=== PATIENT | male | born 1990 | race Caucasian/White ===

== ENCOUNTER 2021-03-24 00:32 | Inpatient (IN) | payer OTHER, SELFPAY ==
--- NOTE | ~2021-03-24 | XR_ITS ---
EXAMINATION: XR ABDOMEN KUB CLINICAL INDICATION: Constipation COMPARISON: None TECHNIQUE: AP view of the abdomen. FINDINGS: The bowel gas pattern is normal with no evidence of ileus or obstruction. No unusual soft tissue calcifications are noted. The bones are unremarkable. XR/XR KUB IMPRESSION: Unremarkable abdomen examination.
[2021-03-24 00:55] VITALS: BP 108/72; PULSE 86; RESP 16; TEMP 36.4; O2SAT 97
--- NOTE | 2021-03-24 01:10 | ED.PSYCH ---
HPI - Psych General Chief Complaint: Psychiatric Symptoms Stated Complaint: SI Time Seen by Provider: 03/24/21 00:57 History of Present Illness HPI Narrative: Patient is a 31-year-old male with a history of polysubstance abuse. Use cocaine and heroin tonight subsequently felt suicidal. Patient walk from [place] to [facility]. Had thoughts about overdosing to kill himself. Patient states he is under lot of stress because his mom from overdose last year. No coughing or congestion or upper respiratory symptoms. Positive generalized malaise. Related Data Allergies Allergy/AdvReac Type Severity Reaction Status Date / Time No Known Allergies Allergy Unverified 03/08/20 18:05 Review of Systems Review of Systems: Positive blisters to his Feet. Positive suicidal ideation All systems reviewed otherwise negative ON LICENSE OF [facility] Social History Social History Advance Directives: No Advance Directives Information Provided: Yes Physical Exam Vital Signs: Vital Signs: Last Vital Signs Temp 97.5 F 03/24/21 00:55 Pulse 86 03/24/21 00:55 Resp 16 03/24/21 00:55 BP 108/72 03/24/21 00:55 Pulse Ox 97 03/24/21 00:55 Appearance: Alert. Oriented X3. No acute distress. Eyes: Pupils equal, round and reactive to light. ENT: Pharynx normal. Neck: Normal inspection. Neck supple. No lymph nodes noted. No crepitus CVS: Normal heart rate and rhythm. Pulses normal. Normal S1 and S2 Respiratory: No respiratory distress. Breath sounds normal. No Wheezing. No rales Abdomen: Soft and nontender. No rigidity. No distention. good BS x4 Skin: Skin warm and dry. Normal skin color. Normal skin turgor. Extremities: No lower extremity edema. Neurovascular intact to all extremities. Positive blisters to the sole of left foot. Does not appear to be infected. Neuro: Oriented X 3. No motor deficit. No sensory deficit. Moving all extermities. No slurred speech MDM - Psych MDM Narrative Medical decision making narrative: Labs ordered. Will get [facility] to evaluate patient for his suicidal ideation. Lab Data Result diagrams: 03/24/21 01:07 Labs: Lab Results 03/24/21 Range/Units 01:07 WBC 6.5 (4.8-10.8) X10*3/uL RBC 4.23 L (4.60-5.80) X10*6/uL Hgb 12.4 L (14.0-18.0) g/dl Hct 35.5 L (42-52) % MCV 83.9 (80-98) fL MCH 29.3 (27.0-33.0) pg MCHC 34.9 (31.0-36.0) g/dl RDW 12.8 (11.0-16.0) % Plt Count 247 (160-400) X10*3/uL MPV 8.9 L (9.4-12.4) fL Immature Gran % (Auto) 0.2 (0.0-0.4) % Neut % (Auto) 63.2 (45-73) % Lymph % (Auto) 24.8 (20-40) % [place] % (Auto) 10.1 (2-11) % Eos % (Auto) 1.4 (0-4) % Baso % (Auto) 0.3 (0-2) % Lymph # (Auto) 1.6 (1.2-4.9) X10*3/uL [place] # (Auto) 0.7 (0.1-1.2) X10*3/uL Eos # (Auto) 0.1 (0.0-0.4) X10*3/uL Baso # (Auto) 0.0 (0.0-0.2) X10*3/uL Abs Immat Gran (auto) 0.01 (0.00-0.03) X10*3/uL Absolute Neuts (auto) 4.1 (2.0-8.3) X10*3/uL Absolute Nucleated RBC 0.000 (0.0-0.012) X10*3/uL Nucleated RBC % (auto) 0.0 (0.0-0.2) /100WBC Discharge Plan Discharge Clinical Impression: Suicidal ideation, Drug-induced psychotic disorder
[2021-03-24 01:12] LABS: MANUAL DIFF FLAG NO
[2021-03-24 01:13] LABS: Basophils Percent Auto 0.3 % (0-2); Eosinophils Absolute Auto 0.1 X10*3/uL (0.0-0.4); Eosinophils Percent Auto 1.4 % (0-4); Hematocrit 35.5 % (42-52); Hemoglobin 12.4 g/dl (14.0-18.0); Imm Gran Abs Auto 0.01 X10*3/uL (0.00-0.03); Imm Gran Pct Auto 0.2 % (0.0-0.4); Lymphocytes Absolute Auto 1.6 X10*3/uL (1.2-4.9); Lymphocytes Percent Auto 24.8 % (20-40); Mean Corpuscular HGB Conc 34.9 g/dl (31.0-36.0); Mean Corpuscular Hemoglobin 29.3 pg (27.0-33.0); Mean Corpuscular Volume 83.9 fL (80-98); Mean Platelet Volume 8.9 fL (9.4-12.4); Monocytes Absolute Auto 0.7 X10*3/uL (0.1-1.2); Monocytes Percent Auto 10.1 % (2-11); Neutrophils Absolute Auto 4.1 X10*3/uL (2.0-8.3); Neutrophils Percent Auto 63.2 % (45-73); Platelet Count 247 X10*3/uL (160-400); Red Blood Count 4.23 X10*6/uL (4.60-5.80); Red Cell Distribution Width 12.8 % (11.0-16.0); White Blood Count 6.5 X10*3/uL (4.8-10.8)
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
[2021-03-24 01:30] LABS: COVID-19 Test Negative (Negative)
[2021-03-24 01:31] LABS: Ethanol < 10 mg/dL
[2021-03-24 01:38] LABS: Amphetamine Screen Urine Not Detected (Not Detect); Barbiturates, Urine Not Detected (Not Detect); Benzodiazepines Screen Urine POSITIVE (Not Detect); Cannabinoid Screen Urine POSITIVE (Not Detect); Cocaine Screen Urine POSITIVE (Not Detect); Opiate Screen Urine POSITIVE (Not Detect); Phencyclidine Screen Urine Not Detected (Not Detect)
[2021-03-24 01:39] LABS: Fentanyl, urine POSITIVE (Not Detect)
--- NOTE | 2021-03-24 01:48 | PC.NURSE ---
[facility] faxed and called. Per Jose E, PT would not be able to be seen until the morning.
[2021-03-24 07:58] VITALS: BP 110/52; PULSE 76; RESP 18; O2SAT 96
--- NOTE | 2021-03-24 09:54 | MHC.CARE ---
CARE Team checked in with patient in [facility]3 regarding possible detox referral. He reported that he just left [facility] ([facility]'s residential recovery program in [place]) after 7 months of treatment and only used one day, does not need detox. Patient stated that he wants mental health treatment, has been struggling with depression due to loses and stress in his life, only feels safe at this hospital. Does not have outpatient providers--had therapy intake with [facility] 2 mos ago.
--- NOTE | 2021-03-24 10:50 | PC.NURSE ---
smart sheet re sent to [facility]
[2021-03-24 10:57] VITALS: BP 111/70; PULSE 67; RESP 16; O2SAT 99
[2021-03-24] MEDS: methADONE HCl 20 MG/2 ML ORAL.CONC 145 MG PO (11:55)
[2021-03-24 17:10] VITALS: BP 102/61; PULSE 65; RESP 17; TEMP 36.4; O2SAT 98
[2021-03-24 23:53] VITALS: BP 117/74; PULSE 59; TEMP 36.8; O2SAT 97
--- NOTE | 2021-03-25 | ECG_ITS ---
Test Reason : MEDCLEARANCE Blood Pressure : / mmHG Vent. Rate : 049 BPM Atrial Rate : 049 BPM P-R Int : 152 ms QRS Dur : 092 ms QT Int : 484 ms P-R-T Axes : 013 -11 001 degrees QTc Int : 437 ms Sinus bradycardia Otherwise normal ECG No previous ECGs available Referred By: Caridad Strong Electronically Signed By:PAO GARSIA
--- NOTE | 2021-03-25 06:24 | PC.NURSE ---
Patient slept the through night, no distress observed/reported, per [facility] patient's disposition section 12 inpatient bed search, methadone rec completed, pending provider's approval, VSS, will continue to monitor.
[2021-03-25 06:42] VITALS: BMI 24.9
--- NOTE | 2021-03-25 07:19 | PC.NURSE ---
patient remains asleep at present respirations are even and unlabored patient appears in no distress
[2021-03-25] MEDS: methADONE HCl 20 MG/2 ML ORAL.CONC 145 MG PO (08:31)
[2021-03-25 08:32] VITALS: BP 122/74; PULSE 62; RESP 16; TEMP 36.9; O2SAT 99
--- NOTE | 2021-03-25 11:13 | PHA.MEDREC ---
Pharmacy Consult ? Medication Reconciliation Pharmacy has completed the medication reconciliation. Patient states that he feels like his anxiety medications are no longer working for him. Patient fills at [facility] in [place], [place] and gets his prescriptions delivered. Last known delivery was 03/11/2021. Kiara Contreras, PharmD [phone]
[2021-03-25] MEDS: busPIRone HCl 10 MG TABLET PO ×2 (14:41→21:19)
[2021-03-25] MEDS: Nicotine Polacrilex Lozenge 4 MG LOZENGE BUCCAL ×2 (17:19→21:25)
[2021-03-25 18:00] VITALS: BP 117/66; BP 133/77; PULSE 61; PULSE 69; TEMP 36.1
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
[2021-03-25] MEDS: Prazosin HCL 1 MG CAPSULE 4 MG PO (21:17)
[2021-03-25] MEDS: QUEtiapine Fumarate 50 MG TABLET 150 MG PO (21:18)
[2021-03-25] MEDS: Mirtazapine 15 MG TABLET PO (21:19)
[2021-03-25] MEDS: QUEtiapine Fumarate 25 MG TABLET PO (21:19)
[2021-03-25] MEDS: OXcarbazepine 300 MG TABLET PO (21:19)
[2021-03-25 23:01] VITALS: PULSE 69
[2021-03-26] MEDS: OXcarbazepine 300 MG TABLET PO ×2 (09:38→21:21)
[2021-03-26] MEDS: busPIRone HCl 10 MG TABLET PO ×3 (09:38→21:21)
[2021-03-26] MEDS: methADONE HCl 20 MG/2 ML ORAL.CONC 145 MG PO (09:38)
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
[2021-03-26 16:00] VITALS: PULSE 53
[2021-03-26 17:41] VITALS: BP 108/63; PULSE 53; RESP 16; TEMP 36.1; O2SAT 96
[2021-03-26 21:20] VITALS: BP 126/74; PULSE 60
[2021-03-26] MEDS: QUEtiapine Fumarate 50 MG TABLET 150 MG PO (21:20)
[2021-03-26] MEDS: Prazosin HCL 1 MG CAPSULE 4 MG PO (21:20)
[2021-03-26] MEDS: LORazepam 0.5 MG TABLET PO (21:21)
[2021-03-26] MEDS: Mirtazapine 15 MG TABLET PO (21:21)
[2021-03-27 06:00] VITALS: BP 108/57; PULSE 54; RESP 16; TEMP 36.5; O2SAT 97
[2021-03-27] MEDS: methADONE HCl 20 MG/2 ML ORAL.CONC 145 MG PO (08:25)
[2021-03-27] MEDS: LORazepam 0.5 MG TABLET PO (08:26)
[2021-03-27] MEDS: busPIRone HCl 10 MG TABLET PO ×3 (08:26→20:49)
[2021-03-27] MEDS: OXcarbazepine 300 MG TABLET PO (08:26)
[2021-03-27] MEDS: hydrOXYzine HCL 50 MG TABLET PO (10:51)
[2021-03-27] MEDS: QUEtiapine Fumarate 25 MG TABLET PO (10:51)
[2021-03-27] MEDS: Nicotine Polacrilex Lozenge 4 MG LOZENGE BUCCAL (10:51)
[2021-03-27 16:00] VITALS: PULSE 55
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
[2021-03-27] MEDS: Mirtazapine 15 MG TABLET PO (20:49)
[2021-03-27 20:50] VITALS: BP 111/63; PULSE 60
[2021-03-27] MEDS: QUEtiapine Fumarate 50 MG TABLET 150 MG PO (20:50)
[2021-03-27] MEDS: OXcarbazepine 300 MG TABLET 600 MG PO (20:50)
[2021-03-27] MEDS: risperiDONE 0.5 MG TABLET PO (20:50)
[2021-03-27] MEDS: LORazepam 1 MG TABLET PO (20:50)
[2021-03-27] MEDS: Prazosin HCL 1 MG CAPSULE 4 MG PO (20:50)
[2021-03-28 06:00] VITALS: BP 95/54; PULSE 62; RESP 16; TEMP 36.4; O2SAT 96
[2021-03-28 07:00] VITALS: BMI 23.9
[2021-03-28] MEDS: OXcarbazepine 300 MG TABLET PO ×2 (08:10→20:35)
[2021-03-28] MEDS: LORazepam 1 MG TABLET PO (08:10)
[2021-03-28] MEDS: risperiDONE 0.5 MG TABLET PO (08:10)
[2021-03-28] MEDS: busPIRone HCl 10 MG TABLET PO ×3 (08:10→20:39)
[2021-03-28] MEDS: methADONE HCl 20 MG/2 ML ORAL.CONC 145 MG PO (08:10)
[2021-03-28] MEDS: QUEtiapine Fumarate 25 MG TABLET PO (11:21)
[2021-03-28] MEDS: hydrOXYzine HCL 50 MG TABLET PO (11:21)
[2021-03-28] MEDS: Nicotine Polacrilex Lozenge 4 MG LOZENGE BUCCAL (11:21)
[2021-03-28 20:30] VITALS: BP 136/76; PULSE 88; RESP 16; TEMP 36.8; O2SAT 99
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
[2021-03-28] MEDS: clonazePAM 1 MG TABLET PO (20:37)
[2021-03-28] MEDS: QUEtiapine Fumarate 50 MG TABLET 150 MG PO (20:37)
[2021-03-28] MEDS: Mirtazapine 15 MG TABLET PO (20:38)
[2021-03-28 20:44] VITALS: BP 136/76; PULSE 88
[2021-03-28] MEDS: Prazosin HCL 1 MG CAPSULE 4 MG PO (20:44)
[2021-03-28] MEDS: OXcarbazepine 300 MG TABLET 600 MG PO (22:32)
[2021-03-29 07:10] VITALS: BP 113/62; PULSE 73; RESP 18; TEMP 36.6; O2SAT 99
[2021-03-29] MEDS: OXcarbazepine 300 MG TABLET PO (08:33)
[2021-03-29] MEDS: methADONE HCl 20 MG/2 ML ORAL.CONC 145 MG PO (08:33)
[2021-03-29] MEDS: clonazePAM 1 MG TABLET PO ×2 (08:33→20:53)
[2021-03-29] MEDS: busPIRone HCl 10 MG TABLET PO ×3 (08:33→20:53)
[2021-03-29] MEDS: Nicotine Polacrilex Lozenge 4 MG LOZENGE BUCCAL (15:00)
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
[2021-03-29 20:45] VITALS: BP 133/89; PULSE 89; TEMP 36.6; O2SAT 98
[2021-03-29] MEDS: OXcarbazepine 300 MG TABLET 600 MG PO (20:52)
[2021-03-29] MEDS: QUEtiapine Fumarate 50 MG TABLET 150 MG PO (20:52)
[2021-03-29 20:53] VITALS: BP 133/89; PULSE 89
[2021-03-29] MEDS: Prazosin HCL 5 MG CAPSULE PO (20:53)
--- NOTE | 2021-03-29 21:45 | PC.NURSE ---
received as transfer from . see note under [facility] mental status. continues on CV. all orders in place.
[2021-03-29] MEDS: Mirtazapine 15 MG TABLET PO (22:58)
[2021-03-29] MEDS: polyethylene glycoL 3350 17 GM POWD.PACK PO (22:58)
[2021-03-29] MEDS: Milk of Magnesia 30 ML ORAL.SUSP PO (22:58)
[2021-03-29] MEDS: QUEtiapine Fumarate 25 MG TABLET PO (23:27)
[2021-03-30 08:11] LABS: Estimated Average Glucose 94 mg/dL; Hemoglobin A1c % 4.9 %
[2021-03-30 08:18] LABS: Alanine Aminotransferase 20 U/L (0-40); Albumin Level 4.1 g/dL (3.5-5.0); Alkaline Phosphatase 94 U/L (39-117); Anion Gap 13 (12-20); Aspartate Amino Transferase 18 U/L (5-37); Bilirubin Total 0.3 mg/dL (0.0-1.0); Blood Urea Nitrogen 14 mg/dL (9-16); Calcium 9.2 mg/dL (8.4-10.2); Carbon Dioxide 27 mmol/L (22-29); Chloride 101 mmol/L (96-108); Cholesterol 150 mg/dL; Creatinine Clr Calc Pharmacy 177.4; Estimated Glomerular Filt Rate > 60; Glucose Random 88 mg/dL (60-115); HDL Cholesterol 28 mg/dL; Potassium 4.4 mmol/L (3.3-5.1); Sodium 137 mmol/L (135-145); Total Protein 7.2 g/dL (6.5-8.0); Triglycerides 510 mg/dL
[2021-03-30 08:39] LABS: Thyroid Stimulating Hormone 1.65 uIU/mL (0.32-4.0)
[2021-03-30 09:00] VITALS: BP 132/74; PULSE 94; RESP 16; TEMP 36.9; O2SAT 99
[2021-03-30] MEDS: OXcarbazepine 300 MG TABLET PO (09:36)
[2021-03-30] MEDS: busPIRone HCl 10 MG TABLET PO ×3 (09:36→20:50)
[2021-03-30] MEDS: clonazePAM 1 MG TABLET 2 MG PO (09:36)
[2021-03-30] MEDS: methADONE HCl 20 MG/2 ML ORAL.CONC 145 MG PO (09:37)
[2021-03-30] MEDS: Nicotine Polacrilex Lozenge 4 MG LOZENGE BUCCAL ×2 (10:49→15:28)
[2021-03-30] MEDS: polyethylene glycoL 3350 17 GM POWD.PACK PO (10:49)
[2021-03-30] MEDS: Milk of Magnesia 30 ML ORAL.SUSP PO ×2 (10:49→21:27)
[2021-03-30] MEDS: QUEtiapine Fumarate 25 MG TABLET PO (15:40)
[2021-03-30] MEDS: hydrOXYzine HCL 50 MG TABLET PO (15:40)
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
[2021-03-30 20:49] VITALS: BP 119/75; PULSE 88
[2021-03-30] MEDS: Prazosin HCL 5 MG CAPSULE PO (20:49)
[2021-03-30] MEDS: clonazePAM 1 MG TABLET PO (20:49)
[2021-03-30] MEDS: QUEtiapine Fumarate 50 MG TABLET 150 MG PO (20:49)
[2021-03-30] MEDS: Mirtazapine 15 MG TABLET PO (20:49)
[2021-03-30] MEDS: Divalproex Sodium 500 MG TABLET.DR PO (20:50)
[2021-03-30 21:30] VITALS: BP 119/75; PULSE 88; RESP 16; TEMP 36.6; O2SAT 100
[2021-03-31 09:10] VITALS: BP 126/68; PULSE 93; RESP 16; TEMP 36.6; O2SAT 100
[2021-03-31] MEDS: clonazePAM 1 MG TABLET 2 MG PO (09:38)
[2021-03-31] MEDS: busPIRone HCl 10 MG TABLET PO ×3 (09:39→20:27)
[2021-03-31] MEDS: Divalproex Sodium 500 MG TABLET.DR PO ×2 (09:39→20:20)
[2021-03-31] MEDS: methADONE HCl 20 MG/2 ML ORAL.CONC 145 MG PO (09:40)
[2021-03-31] MEDS: Magnesium Citrate 300 ML SOLUTION PO (10:20)
[2021-03-31] MEDS: Docusate Sodium 100 MG CAPSULE PO ×2 (10:20→20:20)
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
[2021-03-31] MEDS: hydrOXYzine HCL 50 MG TABLET PO (16:00)
[2021-03-31] MEDS: QUEtiapine Fumarate 25 MG TABLET PO (16:00)
--- NOTE | 2021-03-31 16:42 | PC.NURSE ---
Patient reported on going constipation. Patient stated last normal BM was 10-12 days ago. Patient reports small rabbit like hard pellets this morning. Patient reported feeling bloated and like abdomen was distend. Patient started on Colace today. Patient received 300mLs of magnesium citrate at 10:20 with no effect. Provider notified and KUB was ordered.
[2021-03-31] MEDS: OLANZapine 5 MG TABLET PO (17:47)
[2021-03-31 18:00] VITALS: BP 132/76; PULSE 92; RESP 18; TEMP 36; O2SAT 94
[2021-03-31] MEDS: Lactulose 20 GM/30 ML SOLUTION PO (18:51)
[2021-03-31] MEDS: clonazePAM 1 MG TABLET PO (20:20)
[2021-03-31] MEDS: QUEtiapine Fumarate 50 MG TABLET 150 MG PO (20:20)
[2021-03-31] MEDS: Mirtazapine 15 MG TABLET PO (20:22)
[2021-03-31 20:25] VITALS: BP 123/76; PULSE 92
[2021-03-31] MEDS: Prazosin HCL 5 MG CAPSULE PO (20:25)
[2021-04-01 08:08] LABS: Folate 6.7 ng/mL (> or = 4.0); Vitamin B12 154 pg/mL (200-900)
[2021-04-01] MEDS: busPIRone HCl 10 MG TABLET PO ×3 (09:05→21:03)
[2021-04-01] MEDS: clonazePAM 1 MG TABLET 2 MG PO (09:05)
[2021-04-01] MEDS: Docusate Sodium 100 MG CAPSULE PO ×2 (09:06→21:03)
[2021-04-01] MEDS: Divalproex Sodium 500 MG TABLET.DR PO ×2 (09:06→21:03)
[2021-04-01] MEDS: methADONE HCl 20 MG/2 ML ORAL.CONC 145 MG PO (09:07)
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
[2021-04-01 18:00] VITALS: BP 118/58; PULSE 68; RESP 20; TEMP 36.6; O2SAT 96
[2021-04-01] MEDS: Mirtazapine 15 MG TABLET PO (21:03)
[2021-04-01] MEDS: QUEtiapine Fumarate 50 MG TABLET 150 MG PO (21:03)
[2021-04-01] MEDS: clonazePAM 1 MG TABLET PO (21:03)
[2021-04-01 21:04] VITALS: BP 118/58; PULSE 68
[2021-04-01] MEDS: Prazosin HCL 5 MG CAPSULE PO (21:04)
[2021-04-02 06:00] VITALS: BP 122/84; PULSE 89; RESP 18; TEMP 36.4; O2SAT 96
[2021-04-02] MEDS: busPIRone HCl 10 MG TABLET PO (08:10)
[2021-04-02] MEDS: clonazePAM 1 MG TABLET 2 MG PO (08:10)
[2021-04-02] MEDS: methADONE HCl 20 MG/2 ML ORAL.CONC 145 MG PO (08:10)
[2021-04-02] MEDS: Divalproex Sodium 500 MG TABLET.DR PO (08:10)
[2021-04-02] MEDS: Docusate Sodium 100 MG CAPSULE PO (08:10)
--- NOTE | 2021-05-11 14:44 | P.DS_ITS ---
DS: Providers Provider Date of Service: 04/02/21 Date of admission: 03/25/21 15:14 Date of discharge: 04/02/21 Primary care physician: Unknown Physician Admitting clinician: Jenny Weston Attending physician on admission: Jamie Mullins Attending physician on discharge: Jamie Mullins Discharging clinician: Antonia Paiz DS: Diagnosis Discharge Diagnosis (1) FLORY (generalized anxiety disorder): Status: Acute (2) PTSD (post-traumatic stress disorder): Status: Acute (3) Opioid use disorder: Status: Acute DS: Medications Discharge Medications Home Medications: Home Medications Medication Instructions Recorded Confirmed buspirone 10 mg tablet 10 mg PO TID 03/25/21 03/25/21 methadone 5 mg tablet 145 mg PO DAILY 03/25/21 03/25/21 mirtazapine 15 mg tablet 15 mg PO BEDTIME 03/25/21 03/25/21 nicotine (polacrilex) 4 mg buccal 4 mg BUCCAL Q1H PRN 03/25/21 03/25/21 lozenge (Nicorette) polyethylene glycol 3350 17 gram 17 g PO DAILY PRN 03/25/21 03/25/21 oral powder packet (ClearLax) Previous Rx's Medication Instructions Recorded clonazepam 1 mg tablet 1 mg PO BEDTIME #1 tab 03/29/21 clonazepam 1 mg tablet 2 mg PO DAILY #1 tab 03/29/21 oxcarbazepine 300 mg tablet 300 mg PO DAILY #1 tab 03/29/21 oxcarbazepine 300 mg tablet 600 mg PO BEDTIME #1 tab 03/29/21 prazosin 5 mg capsule 5 mg PO BEDTIME #1 cap 03/29/21 quetiapine 25 mg tablet 25 mg PO BID PRN #1 tab 03/29/21 quetiapine 50 mg tablet 150 mg PO BEDTIME #1 tab 03/29/21 buspirone 10 mg tablet 10 mg PO TID #14 tab 04/02/21 clonazepam 1 mg tablet 1 mg PO TID #3 tab 04/02/21 mirtazapine 15 mg tablet (Remeron) 15 mg PO BEDTIME #10 tab 04/02/21 oxcarbazepine 300 mg tablet 300 mg PO DAILY #10 tab 04/02/21 (Trileptal) oxcarbazepine 600 mg tablet 600 mg PO BEDTIME #20 tab 04/02/21 (Trileptal) prazosin 5 mg capsule 5 mg PO BEDTIME #7 cap 04/02/21 quetiapine 50 mg tablet (Seroquel) 150 mg PO BEDTIME #20 tab 04/02/21 clonazepam 1 mg tablet (Klonopin) 1 mg PO TID #6 tab 04/03/21 clonazepam 1 mg tablet (Klonopin) 1 mg PO TID #21 tab 04/04/21 Mental Status Exam Mental Status Exam Patient Appearance: Appropriate Patient Orientation: Person, Place, Time and Situation Level of Consciousness: Awake, Appropriate and Alert Patient Behavior: Appropriate, Talkative, Cooperative, Passive and Good Eye Contact Mood Description: Anxious Affect Description: Constricted Patient Cognition Impaired: No Ability to Follow Directions: Good Speech Pattern: Spontaneous Speech Memory Description: Episodic Impaired Hallucinations: None Delusions: Not Present Thought Process: Intact Thought Content: positive for Intact Judgement: Good Data Imaging Diagnostic Imaging Impressions KUB X-Ray 03/31/21 15:00 IMPRESSION: Unremarkable abdomen examination. DS: Summary Hospital Course Hospital Course: Pt admitted to adult psychiatry to address symptoms of PTSD, FLORY, Depression, Opiate Use Disorder. Care plan, medication regime and out patient plan of care prior to admission were reviewed. Education was provided regarding managment of symptoms medications and side effects. Nursing and social service worked extensively with patient on collateral contacts, plan of care, education regarding symptom managment, medications and discharge planning. Methadone was continued. Buspar, Klonopin, Mirtazapine, Trileptal, Prazosin and Seroquel were titrated. Time spent discussing smoking cessation with patient: 3 to 10 minutes Status at Discharge Cognitive/behavioral status at discharge: non-psychotic, non-suicidal Functional status at discharge: independent ambulation Overall status at discharge: patient is progressing back to baseline Time Spent with Patient Time attestation: Total time spent providing and/or coordinating discharge services:30 Time spent: Less than 30 minutes Discharge Plan Discharge Patient Disposition: er Acute Care Hospital Discharge Diagnosis: PTSD FLORY Opioid Use Disorder- currently on replacement therapy Referrals: Erma Chery (therapy) [Other] - 04/05/21 11:00 am (The therapy intake appointment is in-office at the above location. Please contact [facility] if you need to reschedule. During this appointment, you will be referred for medication management) [facility] (CSP) [Other] - 04/05/21 11:00 am ( You have been referred for CSP through [facility] in [place]. Your referral will be discussed during you therapy intake appointment) Physician,Unknown J [Primary Care Provider] - 1 Week Discharge Medications: New quetiapine 25 mg Tablet 25 mg PO BID PRN (Reason: agitation, anxiety) Qty: 1 RF: 0 clonazepam 1 mg Tablet 2 mg PO DAILY Qty: 1 RF: 0 clonazepam 1 mg Tablet 1 mg PO BEDTIME Qty: 1 RF: 0 oxcarbazepine 300 mg Tablet 300 mg PO DAILY Qty: 1 RF: 0 oxcarbazepine 300 mg Tablet 600 mg PO BEDTIME Qty: 1 RF: 0 prazosin 5 mg Capsule 5 mg PO BEDTIME Qty: 1 RF: 0 quetiapine 50 mg Tablet 150 mg PO BEDTIME Qty: 1 RF: 0 prazosin 5 mg capsule 5 mg PO BEDTIME Qty: 7 RF: 0 buspirone 10 mg tablet 10 mg PO TID Qty: 14 RF: 0 mirtazapine [Remeron] 15 mg tablet 15 mg PO BEDTIME Qty: 10 RF: 0 quetiapine [Seroquel] 50 mg tablet 150 mg PO BEDTIME Qty: 20 RF: 0 oxcarbazepine [Trileptal] 600 mg tablet 600 mg PO BEDTIME Qty: 20 RF: 0 oxcarbazepine [Trileptal] 300 mg tablet 300 mg PO DAILY Qty: 10 RF: 0 clonazepam 1 mg tablet 1 mg PO TID Qty: 3 RF: 0 clonazepam [Klonopin] 1 mg tablet 1 mg PO TID Qty: 6 RF: 0 clonazepam [Klonopin] 1 mg tablet 1 mg PO TID Qty: 21 RF: 4 Continued methadone 5 mg Tablet 145 mg PO DAILY RF: 0 polyethylene glycol 3350 [ClearLax] 17 gram Powder In Packet 17 g PO DAILY PRN (Reason: Constipation) RF: 0 buspirone 10 mg Tablet 10 mg PO TID RF: 0 mirtazapine 15 mg Tablet 15 mg PO BEDTIME RF: 0 nicotine (polacrilex) [Nicorette] 4 mg Lozenge 4 mg BUCCAL Q1H PRN (Reason: Smoking Cessation) RF: 0 Discontinued hydroxyzine HCl 50 mg Tablet 50 mg PO Q8H PRN (Reason: Anxiety) RF: 0 quetiapine 50 mg Tablet 100 mg PO BEDTIME RF: 0 prazosin 2 mg Capsule 4 mg PO BEDTIME RF: 0 Discharge Orders: Discharge Order (Routine); Ordered 04/02/21 Ordered By: Gina Ward Diet: regular diet Activity on Discharge: As tolerated Stand Alone Forms: Patient Portal Discharge page, Community Support Care Plan Goals: Mood Stabilization Sobriety Health Concerns: PTSD FLORY Opioid Use Disorder Plan of Treatment: Keep scheduled treatment appointments Take medications as directed [facility] will assist you with medication dispensing Call or return if needed Crisis [phone]. Assessment: non suicidal, non psychotic Looking forward to attending [facility] Discharge Date/Time: 04/02/21 10:37
== END 2021-04-02 10:37 | disposition short-term general hospital (02) | DRG 755 ==
LOC: HO.ED 00:47 → HO.PM5 03-25 15:19 → HO.PADLT16 03-29 19:12
PROVIDERS: Admitting Provider Clinical Nurse Specialist Psychiatric/Mental Health, Adult; Emergency Provider Emergency Medicine Emergency Medical Services; Visit Provider Clinical Nurse Specialist Psychiatric/Mental Health, Adult
DX: F43.10 Post-traumatic stress disorder, unspecified (principal); R45.851 Suicidal ideations; F11.20 Opioid dependence, uncomplicated; F41.1 Generalized anxiety disorder; F17.210 Nicotine dependence, cigarettes, uncomplicated; Z71.6 Tobacco abuse counseling; Z20.822 Contact with and (suspected) exposure to COVID-19; Z88.5 Allergy status to narcotic agent; Z79.899 Other long term (current) drug therapy
CPT/HCPCS: 36415; 74018; 80053; 80061; 80307; 82077; 82607; 82746; 83036; 84443; 85025; 87635; 93005; 99285

== ENCOUNTER 2021-07-16 18:34 | Inpatient (IN) | payer OTHER, SELFPAY ==
[2021-07-16 18:47] VITALS: BP 117/74; PULSE 57; RESP 16; TEMP 36.2; O2SAT 98; BMI 23.7
--- NOTE | 2021-07-16 19:09 | ED_ITS ---
HPI - Psych General Chief Complaint: Psychiatric Symptoms Stated Complaint: CRISIS Source: patient Mode of arrival: ambulatory History of Present Illness HPI Narrative: 31-year-old male with significant psychiatric and substance abuse history presents with suicidal ideation with plan to run into traffic or overdose. Stated he used cocaine and heroin yesterday and also takes methadone. Does report that he is homeless and does not have place to stay. MD complaint: suicidal ideation, feels depressed and substance abuse Onset (ago): unknown Duration: constant History of same: Yes Relieving factors: none Exacerbating factors: drug use Context: recent drug abuse Associated psychiatric symptoms: depression and suicidal ideation Associated symptoms: denies other symptoms Treatments prior to arrival: none If self harm: admits thoughts of self harm and has plan Related Data Home Medications Medication Instructions Recorded Confirmed buspirone 10 mg tablet 1 tab PO TID 07/16/21 07/16/21 clonazepam 2 mg tablet 1 tab PO BID PRN 07/16/21 07/16/21 mirtazapine 15 mg tablet 1 tab PO BEDTIME 07/16/21 07/16/21 prazosin 5 mg capsule 1 cap PO BEDTIME 07/16/21 07/16/21 propranolol 10 mg tablet 1 tab PO BID 07/16/21 07/16/21 quetiapine 200 mg tablet,extended 1 tab PO BEDTIME 07/16/21 07/16/21 release 24 hr Allergies Allergy/AdvReac Type Severity Reaction Status Date / Time codeine Allergy RESTLESS Verified 07/16/21 18:47 LEG trazodone Allergy Hives Verified 07/16/21 18:47 Review of Systems Verdana 4l Review of Systems: Verdana 4d Verdana 4d Constitutional: No Fever, No Chills ENT/Mouth: No sore throat, No Rhinorrhea Eyes: No Eye Pain, No Swelling, No Redness Cardiovascular: No Chest Pain, No SOB Respiratory: No Cough, No Sputum Gastrointestinal: No Nausea, No Vomiting,, No Diarrhea, No abdominal Pain Genitourinary: No Dysuria, No Hematuria Musculoskeletal: No joint pain, No Myalgias, No Joint Swelling Skin: No Skin Lesions, No rash Neuro: No Weakness, No Numbness, No Loss of Consciousness, No Dizziness, No Headache Psych: No Anxiety, positive Depression, positive SI, no HI, no auditory hallucinations, positive substance abuse Heme/Lymph: No Bruising, No Bleeding,No Lymphadenopathy Endocrine: No Polyuria, No Polydipsia Yes all other systems are reviewed and are negative [facility] Past Medical History Attestation statement: The following information was validated with the patient. Source: old records reviewed Social History Social History Household Members: None Do you presently have visiting nurse or other home services: No Unable to assess alcohol history related to: Unknown Patient Tobacco Use Status: Current everyday Tobacco user Tobacco use type: Cigarette Second Hand Smoke Exposure: Yes Substance Use Type: Crack/Cocaine, Marijuana and Opiates Advance Directives: No Advance Directives Information Provided: Yes service: No Sexual orientation: Straight/Heterosexual Physical Exam Verdana 4l Vital Signs: Verdana 4d Verdana 4d Vital Signs: Verdana 4d Verdana 4Bd Last Vital Signs Verdana 4d Transportation Equipment Painter New 4d Transportation Equipment Painter New 4d Temp 97.1 F 07/16/21 18:47 Transportation Equipment Painter New 4d Pulse 57 07/16/21 18:47 Transportation Equipment Painter NewNew 4d Resp 16 07/16/21 18:47 BP 117/74 07/16/21 18:47 Pulse Ox 98 07/16/21 18:47 BMI result Body Mass Index 23.7 Appearance: Alert. Oriented X3. Moderate psychiatric distress. Thin. Eyes: Pupils equal, round and reactive to light. Pinpoint pupils. EOMI. Sclera nonicteric. ENT: Pharynx normal. Neck: Normal inspection. Neck supple. CVS: Normal heart rate and rhythm. Pulses normal. Respiratory: No respiratory distress. Breath sounds normal. Abdomen: Soft and nontender. Skin: Skin warm and dry. Normal skin color. Normal skin turgor. Extremities: No lower extremity edema. Gait well-balanced well coordinated. Neuro: No motor deficit. No sensory deficit. Cranial nerves 2-12 intact. Course Course Course Narrative: 31-year-old male presents for suicidal ideation with plan to either overdose or run into traffic. Does have a significant psychiatric background as well as substance abuse. He has been admitted to this facility multiple times for drug-induced psychotic disorders and depression. Will order labs and consult. Patient is verbally aggressive when change his clothing. 10:26 p.m. physician observation started at this time. Care team consult is pending. MDM - Psych Differential Diagnosis Differential diagnosis: Likely acute psychosis, suicidal ideation, bipolar disorder, depression, drug-induced psychotic disorder, acute anxiety, substance abuse and mood disorder Medical Records Attestation: I reviewed the patient's medical records. Lab Data Attestation: I reviewed the patient's lab results. Labs: Lab Results 07/16/21 Range/Units 22:54 COVID-19 ([facility]) Negative (Negative) COVID-19 Clin Com See Note Discharge Plan Discharge Clinical Impression: Opioid use disorder, Suicidal ideation Bipolar disorder Qualifiers: Active/Remission status: currently active Current bipolar episode type: depressed Current episode severity: severe Psychotic features: with psychotic features Qualified Code(s): F31.5 - Bipolar disorder, current episode depressed, severe, with psychotic features Patient Disposition: Still a Patient Prescriptions: No Action prazosin 5 mg capsule 1 cap PO BEDTIME RF: 0 propranolol 10 mg tablet 1 tab PO BID RF: 0 buspirone 10 mg tablet 1 tab PO TID RF: 0 clonazepam 2 mg tablet 1 tab PO BID PRN (Reason: Anxiety) RF: 0 mirtazapine 15 mg tablet 1 tab PO BEDTIME RF: 0 quetiapine 200 mg tablet extended release 24 hr 1 tab PO BEDTIME RF: 0
--- NOTE | 2021-07-16 22:24 | MHC.CARE ---
CARE Team attempted to rouse pt for evaluation, but pt was unarousable. CARE Team will try again later.
[2021-07-16 23:28] LABS: COVID-19 Test Negative (Negative)
--- NOTE | 2021-07-17 | ECG_ITS ---
Test Reason : MED CLEARANCE Blood Pressure : / mmHG Vent. Rate : 049 BPM Atrial Rate : 049 BPM P-R Int : 152 ms QRS Dur : 090 ms QT Int : 518 ms P-R-T Axes : 033 077 064 degrees QTc Int : 467 ms Sinus bradycardia Otherwise normal ECG When compared with ECG of 25-MAR-2021 13:48, Questionable change in QRS axis ST elevation now present in Inferior leads T wave inversion no longer evident in Inferior leads Referred By: Chapin Martínez Electronically Signed By:LUIS E PLEITEZ MD
[2021-07-17 01:10] LABS: MANUAL DIFF FLAG NO
[2021-07-17 01:13] LABS: Basophils Percent Auto 0.4 % (0-2); Eosinophils Absolute Auto 0.1 X10*3/uL (0.0-0.4); Eosinophils Percent Auto 1.1 % (0-4); Hematocrit 32.6 % (42.0-52.0); Hemoglobin 10.6 g/dl (14.0-18.0); Imm Gran Abs Auto 0.01 X10*3/uL (0.00-0.03); Imm Gran Pct Auto 0.2 % (0.0-0.4); Lymphocytes Percent Auto 38.1 % (20-40); Mean Corpuscular HGB Conc 32.5 g/dl (31.0-36.0); Mean Corpuscular Hemoglobin 27.4 pg (27.0-33.0); Mean Corpuscular Volume 84.2 fL (80.0-98.0); Mean Platelet Volume 8.8 fL (9.4-12.4); Monocytes Absolute Auto 0.5 X10*3/uL (0.1-1.2); Monocytes Percent Auto 9.7 % (2-11); Neutrophils Absolute Auto 2.7 x10*3/uL (2.0-8.3); Neutrophils Percent Auto 50.5 % (45-73); Platelet Count 394 X10*3/uL (160-400); Red Blood Count 3.87 X10*6/uL (4.60-5.80); Red Cell Distribution Width 14.4 % (11.0-16.0); White Blood Count 5.3 X10*3/uL (4.8-10.8)
[2021-07-17 01:28] LABS: Ethanol < 10 mg/dL
[2021-07-17 01:30] LABS: Anion Gap 15 (12-20); Blood Urea Nitrogen 7 mg/dL (9-16); Calcium 9.2 mg/dL (8.4-10.2); Carbon Dioxide 28 mmol/L (22-29); Chloride 97 mmol/L (96-108); Creatinine Clr Calc Pharmacy 156.8; Estimated Glomerular Filt Rate > 60; Glucose Random 109 mg/dL (60-115); Potassium 3.5 mmol/L (3.3-5.1); Sodium 136 mmol/L (135-145)
[2021-07-17 01:45] LABS: Amphetamine Screen Urine Not Detected (Not Detect); Barbiturates, Urine Not Detected (Not Detect); Benzodiazepines Screen Urine Not Detected (Not Detect); Cannabinoid Screen Urine Not Detected (Not Detect); Cocaine Screen Urine POSITIVE (Not Detect); Fentanyl, urine POSITIVE (Not Detect); Opiate Screen Urine POSITIVE (Not Detect); Phencyclidine Screen Urine Not Detected (Not Detect)
[2021-07-17 06:23] VITALS: BP 81/52; PULSE 62; RESP 15; TEMP 36.6; O2SAT 98
--- NOTE | 2021-07-17 06:26 | PC.NURSE ---
Patient slept through the night, no distress observed/reported, patient mostly remained sedated, awaiting care team assessment in the morning, will continue to monitor.
--- NOTE | 2021-07-17 07:22 | PC.NURSE ---
patient appears to remain asleep at present respirations are even and unlabored patient appears in no distress
[2021-07-17] MEDS: busPIRone HCl 10 MG TABLET PO (15:52)
[2021-07-17] MEDS: methADONE HCl 20 MG/2 ML ORAL.CONC 150 MG PO (15:53)
[2021-07-17] MEDS: clonazePAM 1 MG TABLET 2 MG PO (16:23)
[2021-07-17 16:51] LABS: COVID-19 Test Negative (Negative)
--- NOTE | 2021-07-17 21:29 | PC.NURSE ---
Patient medication held due to increased sedation. BP 97/55, HR 56. R16
[2021-07-18] MEDS: QUEtiapine Fumarate 100 MG TABLET PO ×3 (01:20→21:26)
[2021-07-18] MEDS: busPIRone HCl 10 MG TABLET PO ×4 (01:20→21:22)
[2021-07-18] MEDS: Mirtazapine 15 MG TABLET PO ×2 (01:20→21:26)
[2021-07-18 02:29] VITALS: BP 86/55; PULSE 60; RESP 17; TEMP 36.6; O2SAT 99
[2021-07-18] MEDS: clonazePAM 1 MG TABLET 2 MG PO (03:35)
--- NOTE | 2021-07-18 06:18 | PC.NURSE ---
Patient slept through the night, behavior appropriate and cooperative, medication compliant, took HS medication late, patient is pre-accepted to [facility]/pending admission, VS at baseline, will continue to monitor.
[2021-07-18 07:54] VITALS: BP 95/54; PULSE 58; RESP 16; TEMP 36.4; O2SAT 98
[2021-07-18 09:40] LABS: COVID-19 Test Negative (Negative); IDNOW Serial# 9DD0AD1C
[2021-07-18] MEDS: Propranolol HCL 10 MG TABLET PO ×2 (10:05→10:06)
[2021-07-18] MEDS: methADONE HCl 20 MG/2 ML ORAL.CONC 150 MG PO (10:06)
[2021-07-18 16:00] VITALS: BP 84/46; PULSE 63; TEMP 36.8; O2SAT 96
[2021-07-18 18:00] VITALS: BP 105/59; PULSE 66; RESP 16; TEMP 36.7; O2SAT 98
[2021-07-18] MEDS: Prazosin HCL 5 MG CAPSULE PO (21:22)
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
[2021-07-19 06:00] VITALS: BP 101/58; PULSE 53; TEMP 37.1; O2SAT 97
[2021-07-19 09:05] LABS: Estimated Average Glucose 105 mg/dL; Hemoglobin A1c % 5.3 %
[2021-07-19] MEDS: QUEtiapine Fumarate 100 MG TABLET PO ×2 (09:24→20:26)
[2021-07-19] MEDS: Propranolol HCL 10 MG TABLET PO ×2 (09:24→20:27)
[2021-07-19] MEDS: busPIRone HCl 10 MG TABLET PO ×3 (09:24→20:26)
[2021-07-19] MEDS: methADONE HCl 20 MG/2 ML ORAL.CONC 150 MG PO (09:25)
[2021-07-19 09:37] LABS: Cholesterol 158 mg/dL; HDL Cholesterol 22 mg/dL; LDL Cholesterol Calculated 68 mg/dl; Thyroid Stimulating Hormone 0.29 uIU/mL (0.32-4.0); Triglycerides 340 mg/dL
[2021-07-19] MEDS: clonazePAM 1 MG TABLET 2 MG PO (09:41)
[2021-07-19 09:52] LABS: Folate 9.1 ng/mL (> or = 4.0); Vitamin B12 235 pg/mL (200-900)
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
[2021-07-19 18:25] VITALS: BP 108/59; PULSE 74; RESP 14; TEMP 37.1; O2SAT 96
[2021-07-19 20:25] VITALS: BP 121/62; PULSE 63
[2021-07-19] MEDS: Prazosin HCL 5 MG CAPSULE PO (20:26)
[2021-07-19] MEDS: Mirtazapine 15 MG TABLET PO (20:26)
[2021-07-20 06:00] VITALS: BP 123/75; PULSE 67; TEMP 36.8; O2SAT 94
[2021-07-20] MEDS: Propranolol HCL 10 MG TABLET PO ×2 (08:22→20:46)
[2021-07-20] MEDS: Ferrous Sulfate 324 MG TABLET.DR PO (08:22)
[2021-07-20] MEDS: Multivitamin TABLET 1 TAB PO (08:22)
[2021-07-20] MEDS: methADONE HCl 20 MG/2 ML ORAL.CONC 150 MG PO (08:23)
[2021-07-20] MEDS: busPIRone HCl 10 MG TABLET PO ×3 (08:23→20:43)
[2021-07-20] MEDS: QUEtiapine Fumarate 100 MG TABLET PO ×2 (08:23→20:46)
[2021-07-20] MEDS: Thiamine HCL 100 MG TABLET PO (08:23)
[2021-07-20] MEDS: Magnesium Hydrox/Alum Hydrox 30 ML ORAL.SUSP PO (14:32)
[2021-07-20 18:00] VITALS: BP 112/70; PULSE 79; O2SAT 96
--- NOTE | 2021-07-20 19:13 | HO.PSYCHPN ---
Subjective Subjective Date of Service: 07/20/21 Reason For Visit: SI, medication non-compliance, relapse Interim History: Patient seen. He is fixated on getting Klonopin because he is feeling anxious. Patient seen in his room and appeared sedated from the methadone. Says he was prescribed it. Reviewed [facility]. He was prescribed it but UTOX was negative for benzos on admission. Review of Systems Acute medical concerns: No Review of Systems Review of Systems Constitutional: No Fever, No Chills ENT/Mouth: No sore throat, No Rhinorrhea Eyes: No Eye Pain, No Swelling, No Redness Cardiovascular: No Chest Pain, No SOB Respiratory: No Cough, No Sputum Gastrointestinal: No Nausea, No Vomiting, No Diarrhea, No abdominal Pain Genitourinary: No Dysuria, No Hematuria Musculoskeletal: No joint pain, No Myalgias, No Joint Swelling Skin: No Skin Lesions, No rash Neuro: No Weakness, No Numbness, No Loss of Consciousness, No Dizziness, No Headache Psych: No Anxiety, positive Depression, positive SI, no HI, no auditory hallucinations, positive substance abuse Heme/Lymph: No Bruising, No Bleeding,No Lymphadenopathy Endocrine: No Polyuria, No Polydipsia Yes all other systems are reviewed and are negative and Unobtainable due to mental status Constitutional: Reports headache(s) Reports headache(s) Reports headache(s) Mental Status Exam Mental Status Exam Patient Appearance: Fatigued, Disheveled and Unkempt Patient Orientation: Person, Place, Time and Situation Level of Consciousness: Sedated Patient Behavior: Guarded, Belligerent, Resistive to Care, Avoidant, Fatigued, Isolative, Uncooperative and Poor Eye Contact Mood Description: Withdrawn and Hostile Affect Description: Withdrawn Patient Cognition Impaired: No Ability to Follow Directions: Poor Speech Pattern: Spontaneous Speech and Soft-Spoken Memory Description: Remote Impaired Thought Content: positive for Perseveration Diagnostics Vital Signs (24Hr): Vital Signs - 24 hr 07/19/21 20:25 07/20/21 06:00 Temperature 98.2 F Pulse Rate 63 67 Blood Pressure 121/62 123/75 Pulse Oximetry 94 BMI result Body Mass Index 23.7 Labs Results: 07/17/21 01:06 07/17/21 01:06 Labs: Laboratory Results - last 48 hr 07/19/21 07/19/21 07/19/21 08:13 08:13 08:13 Estimat Average Glucose 105 Hemoglobin A1c % 5.3 Triglycerides 340 Cholesterol 158 LDL Cholesterol, Calc 68 HDL Cholesterol 22 D Vitamin B12 235 Folate 9.1 TSH 0.29 L EKG EKG: reviewed Medications Medications Current Medications Acetaminophen (Acetaminophen 325 Mg Tablet) 650 mg PO Q6H PRN PRN Reason: Headache/Pain Mild Scale (1-3) Al Hydroxide/Mg Hydroxide (Magnesium Hydrox/Alum Hydrox 30 Ml Oral.Susp) 30 ml PO Q6H PRN PRN Reason: Heartburn/Nausea Last Admin: 07/20/21 14:32 Dose: 30 ml Documented by: Buspirone HCl (Buspirone Hcl 10 Mg Tablet) 10 mg PO TID [facility] Last Admin: 07/20/21 14:29 Dose: 10 mg Documented by: Ferrous Sulfate (Ferrous Sulfate 324 Mg Tablet.Dr) 324 mg PO DAILY [facility] Last Admin: 07/20/21 08:22 Dose: 324 mg Documented by: Hydroxyzine HCl (Hydroxyzine Hcl 25 Mg Tablet) 25 mg PO Q6H PRN PRN Reason: Anxiety Magnesium Hydroxide (Milk Of Magnesia 30 Ml Oral.Susp) 30 ml PO DAILY PRN PRN Reason: Constipation Methadone HCl (Methadone Hcl 20 Mg/2 Ml Oral.Conc) 150 mg PO DAILY [facility] Last Admin: 07/20/21 08:23 Dose: 150 mg Documented by: Mirtazapine (Mirtazapine 15 Mg Tablet) 15 mg PO BEDTIME [facility] Last Admin: 07/19/21 20:26 Dose: 15 mg Documented by: Multivitamins/Vitamin C (Multivitamin Tablet) 1 tab PO DAILY [facility] Last Admin: 07/20/21 08:22 Dose: 1 tab Documented by: Prazosin HCl (Prazosin Hcl 5 Mg Capsule) 5 mg PO BEDTIME [facility]; Protocol Last Admin: 07/19/21 20:26 Dose: 5 mg Documented by: Propranolol HCl (Propranolol Hcl 10 Mg Tablet) 10 mg PO BID [facility]; Protocol Last Admin: 07/20/21 08:22 Dose: 10 mg Documented by: Quetiapine Fumarate (Quetiapine Fumarate 100 Mg Tablet) 100 mg PO BID [facility] Last Admin: 07/20/21 08:23 Dose: 100 mg Documented by: Thiamine HCl (Thiamine Hcl 100 Mg Tablet) 100 mg PO DAILY [facility] Last Admin: 07/20/21 08:23 Dose: 100 mg Documented by: Allergies Allergies Allergy/AdvReac Type Severity Reaction Status Date / Time codeine Allergy RESTLESS Verified 07/16/21 18:47 LEG trazodone Allergy Hives Verified 07/16/21 18:47 Assessment & Plan Assessment & Plan (1) PTSD (post-traumatic stress disorder): Status: Acute Code(s): F43.10 - Post-traumatic stress disorder, unspecified (2) FLORY (generalized anxiety disorder): Status: Acute Code(s): F41.1 - Generalized anxiety disorder (3) Opioid use disorder: Status: Acute Code(s): F11.90 - Opioid use, unspecified, uncomplicated (4) Bipolar disorder: Qualifiers: Active/Remission status: currently active Current bipolar episode type: depressed Current episode severity: severe Psychotic features: with psychotic features Qualified Code(s): F31.5 - Bipolar disorder, current episode depressed, severe, with psychotic features Status: Acute Code(s): F31.9 - Bipolar disorder, unspecified Plan 31 yo male, hx of depression, FLORY, PTSD, probable bipolar disorder. Pt reports he left addictions residential in Apr 2021 to live with his 5 yo daughter and her mother. This did not work out and pt is now homeless, having relapsed and been inconsistent with his psychotropic medications. Plan: Focused on klonopin. Will defer. Re-establish psychotropic medication regime- buspirone, mirtazapine, prazosin, propranolol, seroquel Avoid benzodiazepines if possible Continue methadone Thiamine 100 mg daily MVI i daily Ferrous Sulfate 324 mg daily I spent minutes with the patient and/or on the patient floor today, greater than?50% of which was spent counseling/coordinating care. Reason for contiued inpatient stay Substantial Risk for: harm to self
[2021-07-20] MEDS: Prazosin HCL 5 MG CAPSULE PO (20:43)
[2021-07-20] MEDS: Mirtazapine 15 MG TABLET PO (20:46)
--- NOTE | 2021-07-20 20:52 | PC.NURSE ---
Pt was transferred to S3 at 20:00 with her phone and most of her belongings, she said she left some clothes behind in her room. Pt was transferred from to S3 via wheelchair accompanied by this RN and security.
[2021-07-21 06:00] VITALS: BP 95/60; PULSE 89; TEMP 36.7; O2SAT 97
[2021-07-21] MEDS: methADONE HCl 20 MG/2 ML ORAL.CONC 150 MG PO (08:20)
[2021-07-21] MEDS: Ferrous Sulfate 324 MG TABLET.DR PO (08:20)
[2021-07-21] MEDS: Propranolol HCL 10 MG TABLET PO ×2 (08:20→21:09)
[2021-07-21] MEDS: QUEtiapine Fumarate 100 MG TABLET PO ×2 (08:20→21:09)
[2021-07-21] MEDS: busPIRone HCl 10 MG TABLET PO ×3 (08:20→21:09)
[2021-07-21] MEDS: Multivitamin TABLET 1 TAB PO (08:20)
[2021-07-21] MEDS: Thiamine HCL 100 MG TABLET PO (08:20)
[2021-07-21] MEDS: Milk of Magnesia 30 ML ORAL.SUSP PO (09:11)
[2021-07-21 21:05] VITALS: BP 103/59; PULSE 75; RESP 16; TEMP 37.2
[2021-07-21] MEDS: Mirtazapine 15 MG TABLET PO (21:09)
[2021-07-21] MEDS: Prazosin HCL 5 MG CAPSULE PO (21:09)
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
[2021-07-22] MEDS: Thiamine HCL 100 MG TABLET PO (08:26)
[2021-07-22] MEDS: busPIRone HCl 10 MG TABLET PO ×3 (08:26→21:37)
[2021-07-22] MEDS: methADONE HCl 20 MG/2 ML ORAL.CONC 150 MG PO (08:26)
[2021-07-22] MEDS: Ferrous Sulfate 324 MG TABLET.DR PO (08:26)
[2021-07-22] MEDS: QUEtiapine Fumarate 100 MG TABLET PO ×2 (08:26→21:37)
[2021-07-22] MEDS: Propranolol HCL 10 MG TABLET PO ×2 (08:26→21:38)
[2021-07-22] MEDS: Multivitamin TABLET 1 TAB PO (08:26)
[2021-07-22] MEDS: Divalproex Sodium 250 MG TABLET.DR PO ×2 (14:41→21:37)
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
[2021-07-22] MEDS: Prazosin HCL 5 MG CAPSULE PO (21:37)
[2021-07-22] MEDS: Mirtazapine 15 MG TABLET PO (21:37)
[2021-07-22 21:40] VITALS: BP 99/55; PULSE 65; RESP 16; TEMP 37; O2SAT 96
[2021-07-23 08:00] VITALS: BP 109/58; PULSE 77; TEMP 37.1; O2SAT 97
[2021-07-23] MEDS: QUEtiapine Fumarate 100 MG TABLET PO ×2 (08:29→22:08)
[2021-07-23] MEDS: Thiamine HCL 100 MG TABLET PO (08:29)
[2021-07-23] MEDS: Propranolol HCL 10 MG TABLET PO ×2 (08:29→22:10)
[2021-07-23] MEDS: busPIRone HCl 10 MG TABLET PO ×3 (08:29→22:08)
[2021-07-23] MEDS: Multivitamin TABLET 1 TAB PO (08:29)
[2021-07-23] MEDS: clonazePAM 1 MG TABLET PO ×2 (08:29→22:09)
[2021-07-23] MEDS: Fenofibrate 54 MG TABLET PO (08:29)
[2021-07-23] MEDS: Divalproex Sodium 250 MG TABLET.DR PO ×3 (08:29→22:11)
[2021-07-23] MEDS: Ferrous Sulfate 324 MG TABLET.DR PO (08:30)
[2021-07-23] MEDS: methADONE HCl 20 MG/2 ML ORAL.CONC 150 MG PO (08:30)
--- NOTE | 2021-07-23 12:43 | P.PNPSI_ITS ---
Subjective Subjective Date of Service: 07/23/21 Reason For Visit: SI, medication non-compliance, relapse Interim History: Patient seen and discussed with team. Patient evaluated this morning and upon interview he reports he feels alright, however says his sleep is not good, attributes this to withdrawal and anxiety. He is eating. Denies GI distress, no HAs. doesnt want med changes. Says he feels really anxious and that the only thing that was working was the klonopin, does not like the dose decrease, provided education on benzodiazepines potentially worsening sx of PTSD and abuse potential. Says he does not leave his room due to anxiety, denies benefit on buspar, however also declines a dose increase. Declined referral to field service specialist. In the milieu, patient is safe but isolative in behavior, sitting in the dark. Denies SI/SIB/HI upon inquiry. Denies irritability or assaultive ideation. Says he feels safe. Medication Compliance: Yes Side effects from medications: No Attending Groups: No Review of Systems Acute medical concerns: No Medical Review of Systems: unchanged Mental Status Exam Mental Status Exam Narrative: Patient Appearance:?Appropriate Patient Orientation:?Person, Place, Time and Situation Level of Consciousness:?Alert Patient Behavior:?Talkative, Cooperative and Good Eye Contact Mood Description:?Depressed and Anxious Affect Description:?Flat Patient Cognition Impaired:?No Ability to Follow Directions:?Good Speech Pattern:?Spontaneous Speech Memory Description:?Intact Hallucinations:?None Delusions:?Not Present Thought Process:?Distracted, Rumination and Goal Oriented Thought Content:?positive for [place], positive for Circumstantial, positive for Goal Oriented, positive for Perseveration, positive for Suicidal Ideation (denies) and positive for Homicidal Ideation (denies) Depressive Symptoms:?Increased Anxiety, Increased Fatigue, Loss of Energy and Difficulty Concentrating Judgement:?Fair Diagnostics Vital Signs (24Hr): Vital Signs - 24 hr 07/22/21 21:40 07/23/21 08:00 Temperature 98.6 F 98.7 F Pulse Rate 65 77 Respiratory Rate 16 Blood Pressure 99/55 L 109/58 L Pulse Oximetry 96 97 BMI result Verdana 4 Body Mass Index Verdana 4 23.7 Verdana 4 Verdana 4 Labs Results: 07/17/21 01:06 07/17/21 01:06 Medications Medications Current Medications Acetaminophen (Acetaminophen 325 Mg Tablet) 650 mg PO Q6H PRN PRN Reason: Headache/Pain Mild Scale (1-3) Al Hydroxide/Mg Hydroxide (Magnesium Hydrox/Alum Hydrox 30 Ml Oral.Susp) 30 ml PO Q6H PRN PRN Reason: Heartburn/Nausea Last Admin: 07/20/21 14:32 Dose: 30 ml Documented by: Buspirone HCl (Buspirone Hcl 10 Mg Tablet) 10 mg PO TID [facility] Last Admin: 07/23/21 08:29 Dose: 10 mg Documented by: Clonazepam (Clonazepam 1 Mg Tablet) 1 mg PO BID [facility] Last Admin: 07/23/21 08:29 Dose: 1 mg Documented by: Divalproex Sodium (Divalproex Sodium 250 Mg Tablet.) 250 mg PO TID [facility] Last Admin: 07/23/21 08:29 Dose: 250 mg Documented by: Fenofibrate (Fenofibrate 54 Mg Tablet) 54 mg PO DAILY [facility] Last Admin: 07/23/21 08:29 Dose: 54 mg Documented by: Ferrous Sulfate (Ferrous Sulfate 324 Mg Tablet.) 324 mg PO DAILY [facility] Last Admin: 07/23/21 08:30 Dose: 324 mg Documented by: Hydroxyzine HCl (Hydroxyzine Hcl 25 Mg Tablet) 25 mg PO Q6H PRN PRN Reason: Anxiety Magnesium Hydroxide (Milk Of Magnesia 30 Ml Oral.Susp) 30 ml PO DAILY PRN PRN Reason: Constipation Last Admin: 07/21/21 09:11 Dose: 30 ml Documented by: Methadone HCl (Methadone Hcl 20 Mg/2 Ml Oral.Conc) 150 mg PO DAILY [facility] Last Admin: 07/23/21 08:30 Dose: 150 mg Documented by: Mirtazapine (Mirtazapine 15 Mg Tablet) 15 mg PO BEDTIME [facility] Last Admin: 07/22/21 21:37 Dose: 15 mg Documented by: Multivitamins/Vitamin C (Multivitamin Tablet) 1 tab PO DAILY [facility] Last Admin: 07/23/21 08:29 Dose: 1 tab Documented by: Prazosin HCl (Prazosin Hcl 5 Mg Capsule) 5 mg PO BEDTIME [facility]; Protocol Last Admin: 07/22/21 21:37 Dose: 5 mg Documented by: Propranolol HCl (Propranolol Hcl 10 Mg Tablet) 10 mg PO BID [facility]; Protocol Last Admin: 07/23/21 08:29 Dose: 10 mg Documented by: Quetiapine Fumarate (Quetiapine Fumarate 100 Mg Tablet) 100 mg PO BID [facility] Last Admin: 07/23/21 08:29 Dose: 100 mg Documented by: Thiamine HCl (Thiamine Hcl 100 Mg Tablet) 100 mg PO DAILY [facility] Last Admin: 07/23/21 08:29 Dose: 100 mg Documented by: Allergies Allergies Allergy/AdvReac Type Severity Reaction Status Date / Time codeine Allergy RESTLESS Verified 07/16/21 18:47 LEG trazodone Allergy Hives Verified 07/16/21 18:47 Assessment & Plan Assessment & Plan (1) PTSD (post-traumatic stress disorder): Status: Acute Code(s): F43.10 - Post-traumatic stress disorder, unspecified (2) FLORY (generalized anxiety disorder): Status: Acute Code(s): F41.1 - Generalized anxiety disorder (3) Opioid use disorder: Status: Acute Code(s): F11.90 - Opioid use, unspecified, uncomplicated (4) Bipolar disorder: Qualifiers: Active/Remission status: currently active Current bipolar episode type: depressed Current episode severity: severe Psychotic features: with psychotic features Qualified Code(s): F31.5 - Bipolar disorder, current episode depressed, severe, with psychotic features Status: Acute Code(s): F31.9 - Bipolar disorder, unspecified Plan 31 yo male, hx of depression, FLORY, PTSD, probable bipolar disorder. Pt reports he left addictions residential in Apr 2021 to live with his 5 yo daughter and her mother. This did not work out and pt is now homeless, having relapsed and been inconsistent with his psychotropic medications. Plan: Focused on klonopin. Will defer. Re-establish psychotropic medication regime- buspirone, mirtazapine, prazosin, propranolol, seroquel Avoid benzodiazepines if possible Continue methadone Thiamine 100 mg daily MVI i daily Ferrous Sulfate 324 mg daily. 07/22/21 Pt able to meet today-asking to return to residential care. Contact with OP team. Pt had increase Klonopin 05/09/21 to 2 mg bid. Will cover with 1 mg bid during admission. Reports anxiety, body aches and shortness of breath. Klonopin 1 mg bid- to cover pt during admission-will return to OP plan upon discharge Depakote 250 mg tid Fenofibrate 54 mg daily 07/23/21: No changes to med regimen, pt reports he is struggling with withdrawal I spent minutes with the patient and/or on the patient floor today, greater than?50% of which was spent counseling/coordinating care. Reason for contiued inpatient stay Substantial Risk for: rapid decompensation and med/psych decompensation
[2021-07-23 22:00] VITALS: BP 107/59; PULSE 73; TEMP 37.1
[2021-07-23] MEDS: Prazosin HCL 5 MG CAPSULE PO (22:08)
[2021-07-23] MEDS: Mirtazapine 15 MG TABLET PO (22:08)
[2021-07-24 06:00] VITALS: BP 108/58; PULSE 96
[2021-07-24] MEDS: methADONE HCl 20 MG/2 ML ORAL.CONC 150 MG PO (08:45)
[2021-07-24] MEDS: clonazePAM 1 MG TABLET PO ×2 (08:46→21:04)
[2021-07-24] MEDS: QUEtiapine Fumarate 100 MG TABLET PO (08:46)
[2021-07-24] MEDS: Multivitamin TABLET 1 TAB PO (08:46)
[2021-07-24] MEDS: busPIRone HCl 10 MG TABLET PO ×3 (08:46→21:03)
[2021-07-24] MEDS: Divalproex Sodium 250 MG TABLET.DR PO ×3 (08:46→21:04)
[2021-07-24] MEDS: Thiamine HCL 100 MG TABLET PO (08:46)
[2021-07-24] MEDS: Propranolol HCL 10 MG TABLET PO ×2 (08:46→21:04)
[2021-07-24] MEDS: Ferrous Sulfate 324 MG TABLET.DR PO (08:46)
[2021-07-24] MEDS: Fenofibrate 54 MG TABLET PO (08:46)
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
--- NOTE | 2021-07-24 19:28 | MHC.RECOVSUP ---
Met with Pt. 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 I will make a referral to [facility] .
[2021-07-24 21:00] VITALS: BP 102/59; PULSE 75; TEMP 36.3; O2SAT 97
[2021-07-24] MEDS: QUEtiapine Fumarate 300 MG TABLET PO (21:04)
[2021-07-24] MEDS: Mirtazapine 15 MG TABLET PO (21:04)
[2021-07-24] MEDS: Prazosin HCL 1 MG CAPSULE 6 MG PO (21:05)
[2021-07-25 08:30] VITALS: BP 98/64; PULSE 79; TEMP 36.8
[2021-07-25] MEDS: clonazePAM 1 MG TABLET PO ×2 (09:03→20:06)
[2021-07-25] MEDS: Fenofibrate 54 MG TABLET PO (09:03)
[2021-07-25] MEDS: busPIRone HCl 10 MG TABLET PO ×3 (09:03→20:05)
[2021-07-25] MEDS: Multivitamin TABLET 1 TAB PO (09:03)
[2021-07-25] MEDS: Propranolol HCL 10 MG TABLET PO ×2 (09:04→20:06)
[2021-07-25] MEDS: Ferrous Sulfate 324 MG TABLET.DR PO (09:04)
[2021-07-25] MEDS: Divalproex Sodium 250 MG TABLET.DR PO ×3 (09:04→20:05)
[2021-07-25] MEDS: Thiamine HCL 100 MG TABLET PO (09:04)
[2021-07-25] MEDS: methADONE HCl 20 MG/2 ML ORAL.CONC 150 MG PO (09:05)
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
[2021-07-25 19:45] VITALS: BP 101/60; PULSE 76
[2021-07-25] MEDS: QUEtiapine Fumarate 50 MG TABLET 350 MG PO (20:05)
[2021-07-25] MEDS: Mirtazapine 15 MG TABLET PO (20:05)
[2021-07-25] MEDS: Prazosin HCL 1 MG CAPSULE 6 MG PO (20:06)
[2021-07-26 08:45] VITALS: BP 109/63; PULSE 78; TEMP 36.6
[2021-07-26] MEDS: Multivitamin TABLET 1 TAB PO (09:07)
[2021-07-26] MEDS: Thiamine HCL 100 MG TABLET PO (09:07)
[2021-07-26] MEDS: Ferrous Sulfate 324 MG TABLET.DR PO (09:08)
[2021-07-26] MEDS: Divalproex Sodium 250 MG TABLET.DR PO ×3 (09:08→20:53)
[2021-07-26] MEDS: Fenofibrate 54 MG TABLET PO (09:08)
[2021-07-26] MEDS: Propranolol HCL 10 MG TABLET PO ×2 (09:08→20:53)
[2021-07-26] MEDS: clonazePAM 1 MG TABLET PO ×2 (09:08→20:53)
[2021-07-26] MEDS: busPIRone HCl 10 MG TABLET PO ×3 (09:08→20:53)
[2021-07-26] MEDS: methADONE HCl 20 MG/2 ML ORAL.CONC 150 MG PO (09:09)
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
[2021-07-26 20:49] VITALS: BP 110/57; PULSE 89; RESP 16; TEMP 37.3; O2SAT 96
[2021-07-26] MEDS: Prazosin HCL 1 MG CAPSULE PO (20:51)
[2021-07-26] MEDS: Mirtazapine 30 MG TABLET PO (20:51)
[2021-07-26] MEDS: Prazosin HCL 5 MG CAPSULE PO (20:55)
[2021-07-27 08:41] VITALS: BP 169/111; PULSE 74; RESP 16
[2021-07-27] MEDS: methADONE HCl 20 MG/2 ML ORAL.CONC 150 MG PO (08:43)
[2021-07-27] MEDS: clonazePAM 1 MG TABLET PO ×2 (08:44→22:56)
[2021-07-27] MEDS: Fenofibrate 54 MG TABLET PO (08:44)
[2021-07-27] MEDS: Ferrous Sulfate 324 MG TABLET.DR PO (08:44)
[2021-07-27] MEDS: busPIRone HCl 10 MG TABLET PO ×2 (08:44→14:43)
[2021-07-27] MEDS: Divalproex Sodium 250 MG TABLET.DR PO ×3 (08:44→22:56)
[2021-07-27] MEDS: Multivitamin TABLET 1 TAB PO (08:44)
[2021-07-27] MEDS: Thiamine HCL 100 MG TABLET PO (08:44)
[2021-07-27] MEDS: Propranolol HCL 10 MG TABLET PO (08:44)
[2021-07-27 22:50] VITALS: BP 102/58; PULSE 91; TEMP 36.8
[2021-07-27] MEDS: Prazosin HCL 1 MG CAPSULE 2 MG PO (22:54)
[2021-07-27] MEDS: Mirtazapine 30 MG TABLET PO (22:55)
[2021-07-27] MEDS: busPIRone HCl 10 MG TABLET 20 MG PO (22:55)
[2021-07-27] MEDS: Prazosin HCL 5 MG CAPSULE PO (22:55)
[2021-07-28 08:38] VITALS: BP 98/54; PULSE 103; RESP 16
[2021-07-28] MEDS: Ferrous Sulfate 324 MG TABLET.DR PO (08:42)
[2021-07-28] MEDS: busPIRone HCl 10 MG TABLET 20 MG PO ×3 (08:42→20:26)
[2021-07-28] MEDS: Divalproex Sodium 250 MG TABLET.DR PO ×3 (08:42→20:26)
[2021-07-28] MEDS: methADONE HCl 20 MG/2 ML ORAL.CONC 150 MG PO (08:42)
[2021-07-28] MEDS: Propranolol HCL 20 MG TABLET PO (08:42)
[2021-07-28] MEDS: Multivitamin TABLET 1 TAB PO (08:42)
[2021-07-28] MEDS: clonazePAM 1 MG TABLET PO ×2 (08:42→20:25)
[2021-07-28] MEDS: Fenofibrate 54 MG TABLET PO (08:42)
[2021-07-28] MEDS: Thiamine HCL 100 MG TABLET PO (08:42)
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
[2021-07-28 20:10] VITALS: BP 98/54; PULSE 88; TEMP 36.7
[2021-07-28] MEDS: Mirtazapine 30 MG TABLET PO (20:26)
[2021-07-28] MEDS: Prazosin HCL 5 MG CAPSULE PO (20:27)
[2021-07-28] MEDS: Prazosin HCL 1 MG CAPSULE 2 MG PO (20:28)
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
[2021-07-29 06:00] VITALS: BP 109/72; PULSE 89; TEMP 36.7; O2SAT 95
[2021-07-29] MEDS: Divalproex Sodium 250 MG TABLET.DR PO ×3 (08:20→21:05)
[2021-07-29] MEDS: Fenofibrate 54 MG TABLET PO (08:20)
[2021-07-29] MEDS: Multivitamin TABLET 1 TAB PO (08:20)
[2021-07-29] MEDS: Propranolol HCL 20 MG TABLET PO (08:20)
[2021-07-29] MEDS: busPIRone HCl 10 MG TABLET 20 MG PO ×3 (08:20→21:04)
[2021-07-29] MEDS: clonazePAM 1 MG TABLET PO ×2 (08:20→18:12)
[2021-07-29] MEDS: Thiamine HCL 100 MG TABLET PO (08:20)
[2021-07-29] MEDS: Ferrous Sulfate 324 MG TABLET.DR PO (08:20)
[2021-07-29] MEDS: methADONE HCl 20 MG/2 ML ORAL.CONC 150 MG PO (08:21)
[2021-07-29 08:46] LABS: Basophils Percent Auto 0.7 % (0-2); Eosinophils Absolute Auto 0.2 X10*3/uL (0.0-0.4); Eosinophils Percent Auto 5.1 % (0-4); Hematocrit 40.2 % (42.0-52.0); Hemoglobin 12.8 g/dl (14.0-18.0); Imm Gran Abs Auto 0.01 X10*3/uL (0.00-0.03); Imm Gran Pct Auto 0.2 % (0.0-0.4); Lymphocytes Absolute Auto 1.7 X10*3/uL (1.2-4.9); Lymphocytes Percent Auto 38.3 % (20-40); MANUAL DIFF FLAG SCAN; Mean Corpuscular HGB Conc 31.8 g/dl (31.0-36.0); Mean Corpuscular Hemoglobin 27.4 pg (27.0-33.0); Mean Corpuscular Volume 86.1 fL (80.0-98.0); Monocytes Absolute Auto 0.4 X10*3/uL (0.1-1.2); Monocytes Percent Auto 8.5 % (2-11); Neutrophils Absolute Auto 2.1 x10*3/uL (2.0-8.3); Neutrophils Percent Auto 47.2 % (45-73); PLT CLUMP 1; Red Blood Count 4.67 X10*6/uL (4.60-5.80); Red Cell Distribution Width 14.6 % (11.0-16.0); SCAN SMEAR FLAG 1
[2021-07-29 08:47] LABS: White Blood Count 4.5 X10*3/uL (4.8-10.8)
[2021-07-29 09:06] LABS: SLIDE REVIEW VERIFIED
[2021-07-29 09:09] LABS: Valproate 44.3 mcg/mL (50.0-100.0)
[2021-07-29 09:13] LABS: Alanine Aminotransferase 22 U/L (0-40); Albumin Level 3.8 g/dL (3.5-5.0); Alkaline Phosphatase 88 U/L (39-117); Anion Gap 13 (12-20); Aspartate Amino Transferase 19 U/L (5-37); Bilirubin Total 0.4 mg/dL (0.0-1.0); Blood Urea Nitrogen 10 mg/dL (9-16); Calcium 9.6 mg/dL (8.4-10.2); Carbon Dioxide 29 mmol/L (22-29); Chloride 101 mmol/L (96-108); Creatinine Clr Calc Pharmacy 168.6; Estimated Glomerular Filt Rate > 60; Glucose Random 93 mg/dL (60-115); Potassium 4.3 mmol/L (3.3-5.1); Sodium 139 mmol/L (135-145); Total Protein 7.3 g/dL (6.5-8.0)
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
[2021-07-29] MEDS: diphenhydrAMINE HCL 25 MG TABLET 50 MG PO (16:52)
[2021-07-29] MEDS: LORazepam 1 MG TABLET 2 MG PO (16:52)
[2021-07-29] MEDS: HaloperidoL 5 MG TABLET 10 MG PO (16:54)
[2021-07-29 20:40] VITALS: BP 106/63; PULSE 91; TEMP 37.1
[2021-07-29] MEDS: hydrOXYzine HCL 50 MG TABLET PO (21:02)
[2021-07-29] MEDS: Prazosin HCL 1 MG CAPSULE 2 MG PO (21:02)
[2021-07-29] MEDS: Mirtazapine 30 MG TABLET PO (21:04)
[2021-07-29] MEDS: Prazosin HCL 5 MG CAPSULE PO (21:04)
[2021-07-30 08:26] VITALS: BP 109/64; PULSE 84; RESP 14; TEMP 36.8; O2SAT 95
[2021-07-30] MEDS: methADONE HCl 20 MG/2 ML ORAL.CONC 150 MG PO (09:09)
[2021-07-30] MEDS: Divalproex Sodium 250 MG TABLET.DR PO (09:10)
[2021-07-30] MEDS: busPIRone HCl 10 MG TABLET 20 MG PO (09:10)
[2021-07-30] MEDS: clonazePAM 1 MG TABLET PO (09:10)
[2021-07-30] MEDS: Fenofibrate 54 MG TABLET PO (09:10)
[2021-07-30] MEDS: Multivitamin TABLET 1 TAB PO (09:10)
[2021-07-30] MEDS: Thiamine HCL 100 MG TABLET PO (09:10)
[2021-07-30] MEDS: Propranolol HCL 20 MG TABLET PO (09:10)
[2021-07-30] MEDS: Ferrous Sulfate 324 MG TABLET.DR PO (09:10)
--- NOTE | 2021-07-30 13:07 | P.DS_ITS ---
DS: Providers Provider Date of Service: 07/30/21 Date of admission: 07/18/21 14:24 Date of discharge: 07/30/21 Primary care physician: Unknown Physician Admitting clinician: Antonia Paiz Attending physician on admission: Jamie Mullins Consults: 07/24/21 15:40 Addiction Medicine Routine Consulting Provider: Shahla Sellers Reason for consultation: 1. 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 Methdone dosing-[employer] Has provider been notified: No Attending physician on discharge: Jamie Mullins Discharging clinician: Antonia Paiz DS: Diagnosis Discharge Diagnosis (1) PTSD (post-traumatic stress disorder): Status: Acute (2) FLORY (generalized anxiety disorder): Status: Acute (3) Opioid use disorder: Status: Acute (4) Bipolar disorder: Status: Acute DS: Medications Discharge Medications Home Medications: Home Medications Medication Instructions Recorded Confirmed methadone 10 mg tablet 150 mg PO DAILY 07/17/21 07/17/21 Previous Rx's Medication Instructions Recorded buspirone 10 mg tablet 20 mg PO TID #42 tab 07/30/21 clonazepam 2 mg tablet 1 tab PO BID PRN #14 tab 07/30/21 divalproex 250 mg tablet,delayed 250 mg PO BID #30 tab 07/30/21 release (Depakote) fenofibrate 54 mg tablet 54 mg PO DAILY #30 tab 07/30/21 ferrous sulfate 324 mg (65 mg 324 mg PO DAILY #30 tab 07/30/21 iron) tablet,delayed release haloperidol 5 mg tablet 5 mg PO BEDTIME #14 tab 07/30/21 mirtazapine 30 mg tablet 30 mg PO BEDTIME #15 tab 07/30/21 multivitamin (Daily-Cleopatra) 1 tab PO DAILY #30 tab 07/30/21 naloxone 4 mg/actuation nasal 4 mg INTRANASAL Q2M PRN #2 ea 07/30/21 spray (Narcan) prazosin 1 mg capsule 2 mg PO BEDTIME #60 cap 07/30/21 prazosin 5 mg capsule 1 cap PO BEDTIME #30 cap 07/30/21 propranolol 20 mg tablet 20 mg PO DAILY #15 tab 07/30/21 thiamine mononitrate (vit B1) 100 100 mg PO DAILY #30 tab 07/30/21 mg tablet Mental Status Exam Mental Status Exam Patient Appearance: Appropriate Patient Orientation: Person, Place, Time and Situation Level of Consciousness: Alert Patient Behavior: Talkative and Good Eye Contact Mood Description: Calm Affect Description: Calm Patient Cognition Impaired: No Ability to Follow Directions: Good Speech Pattern: Spontaneous Speech Memory Description: Episodic Impaired Hallucinations: None Thought Process: Evasive Thought Content: positive for [place], positive for Circumstantial, positive for Suicidal Ideation (denies) and positive for Homicidal Ideation (threatening behaviors) Depressive Symptoms: Sleeping More Than Usual and Thoughts of /Suicide (denies) Judgement: Good Data Data Completed and Pending Completed studies during hospitalization [Text1]: 07/29/21 07/29/21 08:13 08:13 WBC 4.5 L RBC 4.67 D Hgb 12.8 L D Hct 40.2 L D MCV 86.1 MCH 27.4 MCHC 31.8 RDW 14.6 Plt Count TNP MPV Not Reportable Immature Gran % (Auto) 0.2 Neut % (Auto) 47.2 Lymph % (Auto) 38.3 [place] % (Auto) 8.5 Eos % (Auto) 5.1 H Baso % (Auto) 0.7 Lymph # (Auto) 1.7 [place] # (Auto) 0.4 Eos # (Auto) 0.2 Baso # (Auto) 0.0 Abs Immat Gran (auto) 0.01 Absolute Neuts (auto) 2.1 Absolute Nucleated RBC 0.000 Nucleated RBC % (auto) 0.0 Smear Tech's Comments VERIFIED Sodium 139 Potassium 4.3 D Chloride 101 Carbon Dioxide 29 Anion Gap 13 BUN 10 Creatinine 0.80 Estim Creat Clear Calc 168.6 Estimated GFR > 60 Random Glucose 93 Calcium 9.6 Total Bilirubin 0.4 AST 19 ALT 22 Alkaline Phosphatase 88 Total Protein 7.3 Albumin 3.8 Valproic Acid 44.3 L DS: Summary Hospital Course Hospital Course: Admission to adult psychiatry to address symptoms of bipolar disorder, PTSD, generalized anxiety disorder and opioid use disorder-currently on Methadone maintenance. Care plan, medication regime and out patient plan of care prior to admission were reviewed. Education was provided regarding management of symptoms, medications and side effects. Nursing and social work professor worked with Harish on collateral contacts, care planning, education regarding management of symptoms, medications and discharge planning. Depakote, Haldol and Thiamine were initiated. Remeron, Buspirone, Prazosin and Propranolol were titrated. Seroquel and Trileptal were discontinued. Pt, upon discharge, plans to continue his treatment with [facility]. Time spent discussing smoking cessation with patient: 3 to 10 minutes Status at Discharge Functional status at discharge: independent ambulation Overall status at discharge: patient is progressing back to baseline Time Spent with Patient Time attestation: Total time spent providing and/or coordinating discharge services: 35 Time spent: Greater than 30 minutes Discharge Plan Discharge Patient Disposition: er Inpatient Rehab Fac Discharge Diagnosis: Bipolar Disorder PTSD Generalized anxiety disorder Opioid Use Disorder-Methadone Maintenance therapy Referrals: [facility] [Other] - 2 Weeks (Patient needs to follow-up with psychiatric medication and therapy providers following completion of [facility] program to schedule appointments) [facility] [Other] - 07/30/21 10:00 am ([facility] Referral Patient accepted to program requests to discharge and self-present fro admission on 07/30/21 Patient refused planned transition from [facility] to [facility] Program on 07/30/21.) [facility] [Other] - 1 Week (Referral to [facility] Patient needs to follow-up with [facility] program following discharge) [facility] [Other] - 1 Week (Referral to [facility] Patient needs to follow-up with [facility] Director following discharge ) Samy Reeder MD [Physician] - 1 Week (OFFICE AWARE OF PT. D/C WILL CALL PT. AT HOME WITH FOLLOW-UP APPOINTMENT.) Discharge Medications: New prazosin 1 mg Capsule 2 mg PO BEDTIME Qty: 60 0RF Protocol: Hold for SBP< HOLD for SBP < : 90 mirtazapine 30 mg Tablet 30 mg PO BEDTIME Qty: 15 0RF buspirone 10 mg Tablet 20 mg PO TID Qty: 42 1RF propranolol 20 mg Tablet 20 mg PO DAILY Qty: 15 1RF Protocol: Hold for SBP/HR < HOLD for SBP < : 90 HOLD for HR < : 60 ferrous sulfate 324 mg (65 mg iron) Tablet,Delayed Release (Dr/Ec) 324 mg PO DAILY Qty: 30 0RF fenofibrate 54 mg Tablet 54 mg PO DAILY Qty: 30 0RF multivitamin [Daily-Cleopatra] Tablet 1 tab PO DAILY Qty: 30 0RF haloperidol 5 mg Tablet 5 mg PO BEDTIME Qty: 14 1RF thiamine mononitrate (vit B1) 100 mg Tablet 100 mg PO DAILY Qty: 30 0RF divalproex [Depakote] 250 mg tablet,delayed release (DR/EC) 250 mg PO BID Qty: 30 1RF naloxone [Narcan] 4 mg/actuation spray,non-aerosol 4 mg intranasal Q2M PRN (Reason: opioid overdose) Qty: 2 0RF Rx Instructions: spray 1 dose into ONE nostril; alternate nostrils w each dose until help arrives Continued methadone 10 mg Tablet 150 mg PO DAILY 0RF prazosin 5 mg capsule 1 cap PO BEDTIME Qty: 30 0RF clonazepam 2 mg tablet 1 tab PO BID PRN (Reason: Anxiety) Qty: 14 0RF Discontinued propranolol 10 mg tablet 1 tab PO BID 0RF buspirone 10 mg tablet 1 tab PO TID 0RF mirtazapine 15 mg tablet 1 tab PO BEDTIME 0RF quetiapine 200 mg tablet extended release 24 hr 1 tab PO BEDTIME 0RF quetiapine 25 mg tablet 25 mg PO BID 0RF oxcarbazepine 300 mg tablet 300 mg PO BEDTIME 0RF Discharge Orders: Discharge Order (Routine); Ordered 07/30/21 Ordered By: Antonia Paiz Diet: advance to usual diet Activity on Discharge: As tolerated Stand Alone Forms: Patient Portal Discharge page, Community Support Care Plan Goals: Mood stabilization Sobriety Health Concerns: Bipolar Disorder PTSD Opiate Use Disorder-currently on methadone Plan of Treatment: Admission to [facility] Attend appointments as scheduled Take medications as directed Assessment: non-psychotic, non-suicidal Discharge Date/Time: 07/30/21 13:15
== END 2021-07-30 13:15 | DRG 753 ==
LOC: HO.ED 07-18 10:51 → HO.PM5 07-18 15:08
PROVIDERS: Emergency Medicine; Physician Assistant; Registered Nurse; Social Worker; Admitting Provider Psychiatry & Neurology Psychiatry; Emergency Provider Internal Medicine; Visit Provider Clinical Nurse Specialist Psychiatric/Mental Health, Adult
DX: F31.5 Bipolar disorder, current episode depressed, severe, with psychotic features (principal); R45.851 Suicidal ideations; Z91.14 Patient's other noncompliance with medication regimen; F43.10 Post-traumatic stress disorder, unspecified; F41.1 Generalized anxiety disorder; F11.20 Opioid dependence, uncomplicated; Z59.02 Unsheltered homelessness; Z20.822 Contact with and (suspected) exposure to COVID-19; Z79.899 Other long term (current) drug therapy
CPT/HCPCS: 36415; 80048; 80053; 80061; 80164; 80307; 82077; 82607; 82746; 83036; 84443; 85025; 87635; 93005; 99285; Q0163

== ENCOUNTER 2022-09-26 21:54 | Inpatient (IN) | payer OTHER, SELFPAY ==
[2022-09-26 22:00] VITALS: BP 122/83; PULSE 92; RESP 20; TEMP 36.6; O2SAT 95; BMI 23.6
[2022-09-26 22:41] LABS: COVID-19 Test Negative (Negative); IDNOW Serial# 08D9AD1C
[2022-09-26 22:41] LABS: Hematocrit 37.2 % (42.0-52.0); Hemoglobin 12.6 g/dl (14.0-18.0); Mean Corpuscular HGB Conc 33.9 g/dl (31.0-36.0); Mean Corpuscular Hemoglobin 29.7 pg (27.0-33.0); Mean Corpuscular Volume 87.7 fL (80.0-98.0); Mean Platelet Volume 8.9 fL (9.4-12.4); Platelet Count 270 X10*3/uL (160-400); Red Blood Count 4.24 X10*6/uL (4.60-5.80); Red Cell Distribution Width 12.6 % (11.0-16.0)
[2022-09-26 22:58] LABS: Alanine Aminotransferase 128 U/L (0-40); Albumin Level 4.6 g/dL (3.5-5.0); Alkaline Phosphatase 99 U/L (39-117); Anion Gap 15 (12-20); Aspartate Amino Transferase 105 U/L (5-37); Bilirubin Total 0.6 mg/dL (0.0-1.0); Blood Urea Nitrogen 15 mg/dL (9-16); Calcium 9.4 mg/dL (8.4-10.2); Carbon Dioxide 24 mmol/L (22-29); Chloride 104 mmol/L (96-108); Creatinine Clr Calc Pharmacy 142.8; Estimated Glomerular Filt Rate > 60; Ethanol < 10 mg/dL; Glucose Random 128 mg/dL (60-115); Potassium 4.1 mmol/L (3.3-5.1); Sodium 139 mmol/L (135-145); Total Protein 7.7 g/dL (6.5-8.0)
[2022-09-26 23:03] LABS: Appearance Urine Clear; Color Urine Dark Yellow; Glucose Urine UA Negative (Negative); Leukocyte Esterase Urine Trace (Negative); Nitrite Urine Negative (Negative); PH 5.5 (5.0-9.0); Specific Gravity - Urine >= 1.030 (1.005-1.025); UMIC TRIGGER UACC YES; Urine Blood Negative (Negative); Urine Ketones Trace mg/dL (Negative); Urine Protein Trace mg/dL (Neg-Trace)
[2022-09-26 23:08] LABS: Bacteria Urine None Seen (None Seen); Hyaline Casts Urine 0-2 /LPF (0-2); RBC Urine 0-2 /HPF (0-2); Squamous Epithelial Cell Urine 0-2 /HPF (0-2); WBC Urine 0-5 /HPF (0-5)
[2022-09-26 23:12] LABS: Amphetamine Screen Urine POSITIVE (Not Detect); Barbiturates, Urine Not Detected (Not Detect); Benzodiazepines Screen Urine Not Detected (Not Detect); Cannabinoid Screen Urine POSITIVE (Not Detect); Cocaine Screen Urine POSITIVE (Not Detect); Fentanyl, urine POSITIVE (Not Detect); Opiate Screen Urine POSITIVE (Not Detect); Phencyclidine Screen Urine Not Detected (Not Detect)
--- NOTE | 2022-09-26 23:12 | ED.GENADULT ---
HPI - General Adult General Chief complaint: Psychiatric Symptoms <Nicolas Chisholm - Last Filed: 09/27/22 02:20> Stated complaint: si, crisis <Nicolas Chisholm Last Filed: 09/27/22 02:20> Time Seen by Provider: 09/26/22 22:21 <Nicolas Chisholm - Last Filed: 09/27/22 02:20> Source: patient, RN notes reviewed and old records reviewed <Nicolas Chisholm - Last Filed: 09/27/22 02:20> Mode of arrival: ambulatory <Nicolas Chisholm Last Filed: 09/27/22 02:20> Limitations: no limitations <Nicolas Chisholm Filed: 09/27/22 02:20> History of Present Illness HPI narrative: 32-year-old male past medical history significant for bipolar disorder, opioid use disorder, PTSD, anxiety presents for evaluation of suicidal ideation. Patient reports that he has been feeling increasingly depressed for the last few months. He reports that he is having increasing thoughts for suicidal ideation Patient plans to overdose on opiates. He reports that he has been sober for 2 years up until 3 days ago Patient reports that he has been using intranasally only, and has not been injecting He denies any fevers, chills. He reports he has been taking his antidepressant medication as prescribed <Nicolas Chisholm Last Filed: 09/27/22 02:20> Related Data Home medications: Home Medications Medication Instructions Recorded Confirmed buspirone 10 mg tablet 10 mg PO TID 09/26/22 09/26/22 clonidine HCl 0.2 mg tablet 0.2 mg PO BEDTIME 09/26/22 09/26/22 mirtazapine 7.5 mg tablet 7.5 mg PO BEDTIME 09/26/22 09/26/22 prazosin 2 mg capsule 6 mg PO BEDTIME 09/26/22 09/26/22 quetiapine 300 mg tablet 300 mg PO BEDTIME 09/26/22 09/26/22 quetiapine 50 mg tablet 50 mg PO BID@0800,1200 09/26/22 09/26/22 sertraline 100 mg tablet 100 mg PO BEDTIME 09/26/22 09/26/22 <Nicolas Chisholm - Last Filed: 09/27/22 02:20> Allergies/adverse reactions: Allergies Allergy/AdvReac Type Severity Reaction Status Date / Time codeine Allergy RESTLESS Verified 09/26/22 22:03 LEG trazodone Allergy Hives Verified 09/26/22 22:03 <Nicolasfrank Rodartey - Last Filed: 09/27/22 02:20> Review of Systems Constitutional: Constitutional: Reports as per HPI, Denies chills, Denies fatigue, Denies fever(s) and Denies headache(s) <Nicolas Sierra - Last Filed: 09/27/22 02:20> ENT: Denies headache(s) <Sierra - Last Filed: 09/27/22 02:20> Cardiovascular: Cardiovascular: Denies chest pain and Denies dyspnea <Anival - Last Filed: 09/27/22 02:20> Respiratory: Respiratory: Denies cough and Denies dyspnea <Nicolas OSierra - Last Filed: 09/27/22 02:20> Gastrointestinal: Gastrointestinal: Denies abdominal pain, Denies constipation and Denies vomiting <Nicolas OSierra - Last Filed: 09/27/22 02:20> Genitourinary: Genitourinary: Denies difficulty urinating and Denies dysuria <Nicolas OSierra - Last Filed: 09/27/22 02:20> Neurologic: Denies headache(s) and Denies focal weakness <Nicolas OSierra - Last Filed: 09/27/22 02:20> Psychiatric: Psychiatric: Reports depression and Reports suicidal ideation <Nicolas OAnival - Last Filed: 09/27/22 02:20> Endocrine: Endocrine: Denies fatigue <Nicolas MerrittSierra - Last Filed: 09/27/22 02:20> [facility] Social History Social History: Social History Household Members: None Do you presently have visiting nurse or other home services: No Unable to assess alcohol history related to: Unknown Patient Tobacco Use Status: Never used Tobacco Tobacco use type: Cigarette e-Cigarette/Vaping Use: Never Used Second Hand Smoke Exposure: No Substance Use Type: Crack/Cocaine, Heroin and Marijuana Advance Directives: No Advance Directives Information Provided: No Healthcare Proxy: No Guardian: No service: No Sexual orientation: Straight/Heterosexual <Nicolas Chisholm - Last Filed: 09/27/22 02:20> Physical Exam ED Vital Signs: Vital Signs - 24 hr 09/26/22 22:00 09/26/22 23:38 Temperature 97.8 F 98.0 F Pulse Rate 92 99 Respiratory Rate 20 17 Blood Pressure 122/83 144/85 H Pulse Oximetry 95 94 Oxygen Delivery Method Room Air Room Air BMI result Body Mass Index 23.6 <Nicolas Chisholm - Last Filed: 09/27/22 02:20> Vital Signs - 24 hr 09/26/22 22:00 09/26/22 23:38 Temperature 97.8 F 98.0 F Pulse Rate 92 99 Respiratory Rate 20 17 Blood Pressure 122/83 144/85 H Pulse Oximetry 95 94 Oxygen Delivery Method Room Air Room Air BMI result Body Mass Index 23.6 <Ana Paula Montes MD - Last Filed: 09/27/22 07:47> Const General: healthy appearing, comfortable, no acute distress, alert and awake <Nicolas Chisholm - Last Filed: 09/27/22 02:20> Nutritional Appearance: well nourished <Nicolas Chisholm - Last Filed: 09/27/22 02:20> Orientation/consciousness: patient oriented x3 <Nicolas Chisholm - Last Filed: 09/27/22 02:20> HENMT Head: Yes normocephalic and Yes atraumatic <Nicolas Chisholm - Last Filed: 09/27/22 02:20> Throat: Yes posterior oropharynx normal <Nicolas Chisholm - Last Filed: 09/27/22 02:20> Eyes Eyelids: Yes eyelids normal <Nicolas Chisholm - Last Filed: 09/27/22 02:20> Conjunctivae: conjunctivae normal <Nicolas Chisholm - Last Filed: 09/27/22 02:20> Sclerae: sclerae normal <Nicolas Chisholm - Last Filed: 09/27/22 02:20> Corneas: corneas normal <Nicolas Chisholm - Last Filed: 09/27/22 02:20> Pupils: Equal, round and reactive pupils present <Nicolas BangAnival - Last Filed: 09/27/22 02:20> EOM: EOMs intact bilaterally <Nicolas OSierra - Last Filed: 09/27/22 02:20> Neck Neck: Yes full ROM <Nicolas OSierra - Last Filed: 09/27/22 02:20> Resp Effort & Inspection: normal respiratory effort, able to speak in complete sentences, no audible wheezes and not labored <Nicoals OAnival - Last Filed: 09/27/22 02:20> Auscultation: clear to auscultation bilaterally <Nicolas OSierra - Last Filed: 09/27/22 02:20> Cardio Rate: regular rate <Nicolas OSierra - Last Filed: 09/27/22 02:20> Rhythm: regular rhythm <Nicolas OSierra - Last Filed: 09/27/22 02:20> GI Inspection: No distended <Nicolas OSierra - Last Filed: 09/27/22 02:20> Palpation (GI): Soft to palpation, not firm, nontender, no guarding and not rigid <Nicolas OSierra - Last Filed: 09/27/22 02:20> Auscultation: normoactive bowel sounds <Nicolas OSierra - Last Filed: 09/27/22 02:20> Skin General skin exam: no rashes or lesions noted and elasticity normal <Nicolas OSierra - Last Filed: 09/27/22 02:20> Neuro General: patient oriented x3 <Nicolas OSierra - Last Filed: 09/27/22 02:20> Cranial nerves: Yes CN's II-XII intact bilaterally, Yes Equal, round and reactive pupils present and Yes Bilaterally intact EOM present <Nicolas OAnival - Last Filed: 09/27/22 02:20> Cognition (Neuro): normal cognition <Nicolas OSierra - Last Filed: 09/27/22 02:20> Extrem Other: Moving all extremities well without any obvious deformities <Nicolas OAnival - Last Filed: 09/27/22 02:20> Psych Appearance: disheveled <Nicolas MerrittAnival - Last Filed: 09/27/22 02:20> Mental Status: mental status grossly normal <Nicolas Rodartey - Last Filed: 09/27/22 02:20> Speech and movement: Normal speech and movement present <Nicolas Chisholm Last Filed: 09/27/22 02:20> Affect: normal affect <Nicolas OSierra - Last Filed: 09/27/22 02:20> Attitude: cooperative <Nicolas OSierra - Last Filed: 09/27/22 02:20> Thought process: Normal thought process present <Nicolas OSierra - Last Filed: 09/27/22 02:20> Thought content: Suicidality present <Nicolas OSierra - Last Filed: 09/27/22 02:20> Course Reevaluation(s) Reevaluation #1: Patient seen by crisis and is a Section 12 bed search for inpatient psychiatric care <Nicolas Rodarte Last Filed: 09/27/22 02:20> Time: 02:19 <Nicolas Chisholm Last Filed: 09/27/22 02:20> Reevaluation #2: Continue with physician observation, no events overnight reported by the nurse, stable vital signs, bed search is underway by care team. <Ana Paula Montes MD - Last Filed: 09/27/22 07:47> Time: 07:45 <Ana Paula Montes MD - Last Filed: 09/27/22 07:47> Medical Decision Making Medical Decision Making MDM Narrative: 32-year-old male presents for evaluation of depression with suicidal ideation. He also reports relapse of opiate abuse. He will require medical clearance and care team evaluation <Nicolas Chisholm - Last Filed: 09/27/22 02:20> Differential Diagnosis Depression Suicidal ideation Homelessness Opiate abuse Substance abuse <Nicolas oRdarte Last Filed: 09/27/22 02:20> Lab Data Result Diagrams: 09/26/22 22:34 09/26/22 22:34 <Nicolas Rodartey - Last Filed: 09/27/22 02:20> Labs: Lab Results 09/26/22 09/26/22 09/26/22 Range/Units 22:14 22:34 22:34 WBC 6.0 (4.8-10.8) X10*3/uL RBC 4.24 L (4.60-5.80) X10*6/uL Hgb 12.6 L (14.0-18.0) g/dl Hct 37.2 L (42.0-52.0) % MCV 87.7 (80.0-98.0) fL MCH 29.7 (27.0-33.0) pg MCHC 33.9 (31.0-36.0) g/dl RDW 12.6 (11.0-16.0) % Plt Count 270 D (160-400) X10*3/uL MPV 8.9 L (9.4-12.4) fL Absolute Nucleated RBC 0.000 (0.0-0.012) X10*3/uL Nucleated RBC % (auto) 0.0 (0.0-0.2) /100WBC Sodium 139 (135-145) mmol/L Potassium 4.1 (3.3-5.1) mmol/L Chloride 104 (96-108) mmol/L Carbon Dioxide 24 (22-29) mmol/L Anion Gap 15 (12-20) BUN 15 (9-16) mg/dL Creatinine 0.96 (0.5-1.4) mg/dL Estim Creat Clear Calc 142.8 Estimated GFR > 60 Random Glucose 128 H (60-115) mg/dL Calcium 9.4 (8.4-10.2) mg/dL Total Bilirubin 0.6 (0.0-1.0) mg/dL AST 105 H (5-37) U/L ALT 128 H (0-40) U/L Alkaline Phosphatase 99 (39-117) U/L Total Protein 7.7 (6.5-8.0) g/dL Albumin 4.6 (3.5-5.0) g/dL Urine Color Urine Appearance Urine pH (5.0-9.0) Ur Specific [place] (1.005-1.025) Urine Protein (Neg-Trace) mg/dL Urine Glucose (UA) (Negative) mg/dL Urine Ketones (Negative) mg/dL Urine Blood (Negative) Urine Nitrite (Negative) Ur Leukocyte Esterase (Negative) Urine RBC (0-2) /HPF Urine WBC (0-5) /HPF Ur Squamous Epith Cells (0-2) /HPF Urine Bacteria (None Seen) Hyaline Casts (0-2) /LPF Urine Opiates Screen (Not Detect) Urine Fentanyl Screen (Not Detect) Ur Barbiturates Screen (Not Detect) Ur Phencyclidine Scrn (Not Detect) Ur Amphetamines Screen (Not Detect) U Benzodiazepines Scrn (Not Detect) Urine Cocaine Screen (Not Detect) U Marijuana (THC) Screen (Not Detect) Ethyl Alcohol < 10 mg/dL COVID-19 ([facility]) Negative (Negative) COVID-19 Clin Com See Note 09/26/22 09/26/22 Range/Units 22:54 22:54 WBC (4.8-10.8) X10*3/uL RBC (4.60-5.80) X10*6/uL Hgb (14.0-18.0) g/dl Hct (42.0-52.0) % MCV (80.0-98.0) fL MCH (27.0-33.0) pg MCHC (31.0-36.0) g/dl RDW (11.0-16.0) % Plt Count (160-400) X10*3/uL MPV (9.4-12.4) fL Absolute Nucleated RBC (0.0-0.012) X10*3/uL Nucleated RBC % (auto) (0.0-0.2) /100WBC Sodium (135-145) mmol/L Potassium (3.3-5.1) mmol/L Chloride (96-108) mmol/L Carbon Dioxide (22-29) mmol/L Anion Gap (12-20) BUN (9-16) mg/dL Creatinine (0.5-1.4) mg/dL Estim Creat Clear Calc Estimated GFR Random Glucose (60-115) mg/dL Calcium (8.4-10.2) mg/dL Total Bilirubin (0.0-1.0) mg/dL AST (5-37) U/L ALT (0-40) U/L Alkaline Phosphatase (39-117) U/L Total Protein (6.5-8.0) g/dL Albumin (3.5-5.0) g/dL Urine Color Dark Yellow Urine Appearance Clear Urine pH 5.5 (5.0-9.0) Ur Specific [place] >= 1.030 H (1.005-1.025) Urine Protein Trace (Neg-Trace) mg/dL Urine Glucose (UA) Negative (Negative) mg/dL Urine Ketones Trace (Negative) mg/dL Urine Blood Negative (Negative) Urine Nitrite Negative (Negative) Ur Leukocyte Esterase Trace H (Negative) Urine RBC 0-2 (0-2) /HPF Urine WBC 0-5 (0-5) /HPF Ur Squamous Epith Cells 0-2 (0-2) /HPF Urine Bacteria None Seen (None Seen) Hyaline Casts 0-2 (0-2) /LPF Urine Opiates Screen POSITIVE H (Not Detect) Urine Fentanyl Screen POSITIVE H (Not Detect) Ur Barbiturates Screen Not Detected (Not Detect) Ur Phencyclidine Scrn Not Detected (Not Detect) Ur Amphetamines Screen POSITIVE H (Not Detect) U Benzodiazepines Scrn Not Detected (Not Detect) Urine Cocaine Screen POSITIVE H (Not Detect) U Marijuana (THC) Screen POSITIVE H (Not Detect) Ethyl Alcohol mg/dL COVID-19 ([facility]) (Negative) COVID-19 Clin Com <Nicolas Chisholm - Last Filed: 09/27/22 02:20> Lab Results 09/26/22 09/26/22 09/26/22 Range/Units 22:14 22:34 22:34 WBC 6.0 (4.8-10.8) X10*3/uL RBC 4.24 L (4.60-5.80) X10*6/uL Hgb 12.6 L (14.0-18.0) g/dl Hct 37.2 L (42.0-52.0) % MCV 87.7 (80.0-98.0) fL MCH 29.7 (27.0-33.0) pg MCHC 33.9 (31.0-36.0) g/dl RDW 12.6 (11.0-16.0) % Plt Count 270 D (160-400) X10*3/uL MPV 8.9 L (9.4-12.4) fL Absolute Nucleated RBC 0.000 (0.0-0.012) X10*3/uL Nucleated RBC % (auto) 0.0 (0.0-0.2) /100WBC Sodium 139 (135-145) mmol/L Potassium 4.1 (3.3-5.1) mmol/L Chloride 104 (96-108) mmol/L Carbon Dioxide 24 (22-29) mmol/L Anion Gap 15 (12-20) BUN 15 (9-16) mg/dL Creatinine 0.96 (0.5-1.4) mg/dL Estim Creat Clear Calc 142.8 Estimated GFR > 60 Random Glucose 128 H (60-115) mg/dL Calcium 9.4 (8.4-10.2) mg/dL Total Bilirubin 0.6 (0.0-1.0) mg/dL AST 105 H (5-37) U/L ALT 128 H (0-40) U/L Alkaline Phosphatase 99 (39-117) U/L Total Protein 7.7 (6.5-8.0) g/dL Albumin 4.6 (3.5-5.0) g/dL Urine Color Urine Appearance Urine pH (5.0-9.0) Ur Specific [place] (1.005-1.025) Urine Protein (Neg-Trace) mg/dL Urine Glucose (UA) (Negative) mg/dL Urine Ketones (Negative) mg/dL Urine Blood (Negative) Urine Nitrite (Negative) Ur Leukocyte Esterase (Negative) Urine RBC (0-2) /HPF Urine WBC (0-5) /HPF Ur Squamous Epith Cells (0-2) /HPF Urine Bacteria (None Seen) Hyaline Casts (0-2) /LPF Urine Opiates Screen (Not Detect) Urine Fentanyl Screen (Not Detect) Ur Barbiturates Screen (Not Detect) Ur Phencyclidine Scrn (Not Detect) Ur Amphetamines Screen (Not Detect) U Benzodiazepines Scrn (Not Detect) Urine Cocaine Screen (Not Detect) U Marijuana (THC) Screen (Not Detect) Ethyl Alcohol < 10 mg/dL COVID-19 ([facility]) Negative (Negative) COVID-19 Clin Com See Note 09/26/22 09/26/22 Range/Units 22:54 22:54 WBC (4.8-10.8) X10*3/uL RBC (4.60-5.80) X10*6/uL Hgb (14.0-18.0) g/dl Hct (42.0-52.0) % MCV (80.0-98.0) fL MCH (27.0-33.0) pg MCHC (31.0-36.0) g/dl RDW (11.0-16.0) % Plt Count (160-400) X10*3/uL MPV (9.4-12.4) fL Absolute Nucleated RBC (0.0-0.012) X10*3/uL Nucleated RBC % (auto) (0.0-0.2) /100WBC Sodium (135-145) mmol/L Potassium (3.3-5.1) mmol/L Chloride (96-108) mmol/L Carbon Dioxide (22-29) mmol/L Anion Gap (12-20) BUN (9-16) mg/dL Creatinine (0.5-1.4) mg/dL Estim Creat Clear Calc Estimated GFR Random Glucose (60-115) mg/dL Calcium (8.4-10.2) mg/dL Total Bilirubin (0.0-1.0) mg/dL AST (5-37) U/L ALT (0-40) U/L Alkaline Phosphatase (39-117) U/L Total Protein (6.5-8.0) g/dL Albumin (3.5-5.0) g/dL Urine Color Dark Yellow Urine Appearance Clear Urine pH 5.5 (5.0-9.0) Ur Specific [place] >= 1.030 H (1.005-1.025) Urine Protein Trace (Neg-Trace) mg/dL Urine Glucose (UA) Negative (Negative) mg/dL Urine Ketones Trace (Negative) mg/dL Urine Blood Negative (Negative) Urine Nitrite Negative (Negative) Ur Leukocyte Esterase Trace H (Negative) Urine RBC 0-2 (0-2) /HPF Urine WBC 0-5 (0-5) /HPF Ur Squamous Epith Cells 0-2 (0-2) /HPF Urine Bacteria None Seen (None Seen) Hyaline Casts 0-2 (0-2) /LPF Urine Opiates Screen POSITIVE H (Not Detect) Urine Fentanyl Screen POSITIVE H (Not Detect) Ur Barbiturates Screen Not Detected (Not Detect) Ur Phencyclidine Scrn Not Detected (Not Detect) Ur Amphetamines Screen POSITIVE H (Not Detect) U Benzodiazepines Scrn Not Detected (Not Detect) Urine Cocaine Screen POSITIVE H (Not Detect) U Marijuana (THC) Screen POSITIVE H (Not Detect) Ethyl Alcohol mg/dL COVID-19 ([facility]) (Negative) COVID-19 Clin Com <Ana Paula Montes MD - Last Filed: 09/27/22 07:47> Discharge Plan Discharge Clinical Impression: Depression with suicidal ideation, Polysubstance abuse <Nicolas Chisholm - Last Filed: 09/27/22 02:20> Patient Disposition: Still a Patient <Nicolas Chisholm - Last Filed: 09/27/22 02:20> Prescriptions: No Action quetiapine 300 mg tablet 300 mg PO BEDTIME sertraline 100 mg tablet 100 mg PO BEDTIME clonidine HCl 0.2 mg tablet 0.2 mg PO BEDTIME buspirone 10 mg tablet 10 mg PO TID prazosin 2 mg capsule 6 mg PO BEDTIME mirtazapine 7.5 mg tablet 7.5 mg PO BEDTIME quetiapine 50 mg tablet 50 mg PO BID@0800,1200 <Nicolas Chisholm - Last Filed: 09/27/22 02:20> Interventions: [place]-Suicide Risk Severity Scale Last Done: 09/27/22 05:36 <Nicolas Chisholm - Last Filed: 09/27/22 02:20>
[2022-09-26 23:38] VITALS: BP 144/85; PULSE 99; RESP 17; TEMP 36.7; O2SAT 94
--- NOTE | 2022-09-27 | ECG_ITS ---
Test Reason : CHECK FOE PROLONG QT Blood Pressure : / mmHG Vent. Rate : 056 BPM Atrial Rate : 056 BPM P-R Int : 142 ms QRS Dur : 092 ms QT Int : 480 ms P-R-T Axes : 023 063 055 degrees QTc Int : 463 ms Sinus bradycardia Otherwise normal ECG When compared with ECG of 17-JUL-2021 17:17, No significant change was found Referred By: Ana Paula Montes Electronically Signed By:Ritchie Cifuentes
--- NOTE | 2022-09-27 05:54 | PC.NURSE ---
Patient slept through the night, no distress observed/reported, engaged well with care team clinician, disposition is section 12 inpatient bed search, med rec completed/pending provider's approval, labs completed/resulted, behavior non concerning, VSS, will continue to monitor.
--- NOTE | 2022-09-27 07:02 | PC.NURSE ---
Resumed care of this patient this morning, currently resting comfortable in bed this morning. Denies SI/HI at this time. Eating breakfast currently.
[2022-09-27 07:58] VITALS: BP 109/59; PULSE 68; TEMP 36.7; O2SAT 98
[2022-09-27] MEDS: Prazosin HCL 1 MG CAPSULE 6 MG PO ×2 (08:03→22:18)
[2022-09-27] MEDS: QUEtiapine Fumarate 300 MG TABLET PO ×2 (08:04→22:18)
[2022-09-27] MEDS: busPIRone HCl 10 MG TABLET PO ×3 (08:04→22:19)
[2022-09-27] MEDS: cloNIDine HCL 0.2 MG TABLET PO ×2 (08:04→22:19)
[2022-09-27] MEDS: QUEtiapine Fumarate 50 MG TABLET PO ×2 (08:04→11:29)
[2022-09-27] MEDS: Mirtazapine 7.5 MG TABLET PO ×2 (08:04→22:19)
--- NOTE | 2022-09-27 08:23 | PC.NURSE ---
this group underwriter called [facility] on [address] to verify methadone dose/ last taken. Per Nursing, pt received 175mg at 0707, made aware.
[2022-09-27] MEDS: methADONE HCl 20 MG/2 ML ORAL.CONC 175 MG PO (09:42)
--- NOTE | 2022-09-27 11:10 | HE.PHANOTE ---
Methadone confirmation form received. 175mg dose last taken 09/26 from N
--- NOTE | 2022-09-27 14:27 | PC.NURSE ---
Report given to JANE Proctor signed and in chart, pt made aware.
[2022-09-27 14:33] VITALS: BP 103/49; PULSE 54; RESP 15; TEMP 36.4; O2SAT 97
[2022-09-27 17:31] VITALS: BP 97/62; PULSE 67; RESP 16; TEMP 36.1; O2SAT 98
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
[2022-09-27 22:16] VITALS: BP 110/60; PULSE 67; TEMP 36.6; O2SAT 95
[2022-09-27] MEDS: Sertraline HCL 100 MG TABLET PO (22:18)
[2022-09-28 08:00] VITALS: BP 100/65; PULSE 60; RESP 18; TEMP 36.7; O2SAT 99
[2022-09-28] MEDS: QUEtiapine Fumarate 50 MG TABLET PO ×2 (09:38→12:31)
[2022-09-28] MEDS: Acetaminophen 325 MG TABLET 650 MG PO (09:38)
[2022-09-28] MEDS: methADONE HCl 20 MG/2 ML ORAL.CONC 175 MG PO (09:39)
[2022-09-28] MEDS: busPIRone HCl 10 MG TABLET PO ×3 (09:39→22:40)
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
[2022-09-28 22:35] VITALS: BP 111/70; PULSE 61; RESP 18; TEMP 36.3; O2SAT 97
[2022-09-28] MEDS: Prazosin HCL 5 MG, Prazosin HCL 1 MG 6 MG PO (22:39)
[2022-09-28] MEDS: Mirtazapine 7.5 MG TABLET PO (22:39)
[2022-09-28] MEDS: QUEtiapine Fumarate 300 MG TABLET PO (22:39)
[2022-09-28] MEDS: cloNIDine HCL 0.2 MG TABLET PO (22:39)
[2022-09-28] MEDS: Sertraline HCL 100 MG TABLET PO (22:39)
[2022-09-29] MEDS: methADONE HCl 20 MG/2 ML ORAL.CONC 175 MG PO (08:55)
[2022-09-29] MEDS: busPIRone HCl 10 MG TABLET PO ×3 (08:56→21:51)
[2022-09-29] MEDS: QUEtiapine Fumarate 50 MG TABLET PO ×2 (08:56→12:04)
[2022-09-29 09:45] VITALS: BP 112/65; PULSE 65; RESP 16; TEMP 36.8; O2SAT 96
--- NOTE | 2022-09-29 14:48 | P.PNPSI_ITS ---
Subjective Subjective Date of Service: 09/29/22 Reason For Visit: SI Interim History: lying in bed, appears comfortable, easily rousable. declines interview. per staff, here for med adjustment. Mental Status Exam Mental Status Exam Narrative: Limited engagement. Self care poor. No withdrawal. terse. No SI/HI/AVH expressed. Insight and judgment fair Diagnostics Vital Signs (24Hr): Vital Signs - 24 hr 09/28/22 22:35 09/29/22 09:45 Temperature 97.3 F 98.2 F Pulse Rate 61 65 Respiratory Rate 18 16 Blood Pressure 111/70 112/65 Pulse Oximetry 97 96 Oxygen Delivery Method Room Air Room Air BMI result Body Mass Index 23.6 Labs 09/26/22 22:34 09/26/22 22:34 Medications Medications Current Medications Acetaminophen (Acetaminophen 325 Mg Tablet) 650 mg PO Q6H PRN PRN Reason: Headache/Pain Mild Scale (1-3) Last Admin: 09/28/22 09:38 Dose: 650 mg Al Hydroxide/Mg Hydroxide (Magnesium Hydrox/Alum Hydrox 30 Ml Oral.Susp) 30 ml PO Q6H PRN PRN Reason: Heartburn/Nausea Buspirone HCl (Buspirone Hcl 10 Mg Tablet) 10 mg PO TID [facility] Last Admin: 09/29/22 14:32 Dose: 10 mg Clonidine HCl (Clonidine Hcl 0.2 Mg Tablet) 0.2 mg PO BEDTIME [facility]SELL; Protocol Last Admin: 09/28/22 22:39 Dose: 0.2 mg Hydroxyzine HCl (Hydroxyzine Hcl 25 Mg Tablet) 25 mg PO Q6H PRN PRN Reason: Anxiety Magnesium Hydroxide (Milk Of Magnesia 30 Ml Oral.Susp) 30 ml PO DAILY PRN PRN Reason: Constipation Methadone HCl (Methadone Hcl 20 Mg/2 Ml Oral.Conc) 175 mg PO DAILY@0700 [facility] Last Admin: 09/29/22 08:55 Dose: 175 mg Mirtazapine (Mirtazapine 7.5 Mg Tablet) 7.5 mg PO BEDTIME [facility] Last Admin: 09/28/22 22:39 Dose: 7.5 mg Prazosin HCl 5 mg/ Prazosin (HCl 1 mg) 6 mg PO BEDTIME [facility] Last Admin: 09/28/22 22:39 Dose: 6 mg Quetiapine Fumarate (Quetiapine Fumarate 50 Mg Tablet) 50 mg PO BID@0800,1200 [facility] Last Admin: 04/10/23 12:04 Dose: 50 mg Quetiapine Fumarate (Quetiapine Fumarate 300 Mg Tablet) 300 mg PO BEDTIME [facility] Last Admin: 09/28/22 22:39 Dose: 300 mg Sertraline HCl (Sertraline Hcl 100 Mg Tablet) 100 mg PO BEDTIME [facility] Last Admin: 09/28/22 22:39 Dose: 100 mg Allergies Allergies Allergy/AdvReac Type Severity Reaction Status Date / Time codeine Allergy RESTLESS Verified 09/26/22 22:03 LEG trazodone Allergy Hives Verified 09/26/22 22:03 Assessment & Plan Assessment & Plan (1) Bipolar disorder: Qualifiers: Active/Remission status: currently active Current bipolar episode type: depressed Current episode severity: severe Psychotic features: with psychotic features Qualified Code(s): F31.5 - Bipolar disorder, current episode depressed, severe, with psychotic features Status: Acute Code(s): F31.9 - Bipolar disorder, unspecified (2) Opioid use disorder: Status: Acute Code(s): F11.90 - Opioid use, unspecified, uncomplicated (3) PTSD (post-traumatic stress disorder): Status: Acute Code(s): F43.10 - Post-traumatic stress disorder, unspecified Plan Presents with substance relapse, depression, PTSD and recent overdose attempts. 09/28: Plan to engage (very minimal now), restart medications, stabilize and treatment plan accordingly. 09/29: declines interview. denies withdrawal. continue current mgmt. Reason for contiued inpatient stay Substantial Risk for: inability to function and rapid decompensation Time Spent With Patient Time: Total time managing care of this patient today ____ minutes.
[2022-09-29 21:40] VITALS: BP 107/63; PULSE 70; RESP 18; O2SAT 98
[2022-09-29] MEDS: QUEtiapine Fumarate 300 MG TABLET PO (21:51)
[2022-09-29] MEDS: Prazosin HCL 5 MG, Prazosin HCL 1 MG 6 MG PO (21:51)
[2022-09-29] MEDS: Sertraline HCL 100 MG TABLET PO (21:51)
[2022-09-29] MEDS: Mirtazapine 7.5 MG TABLET PO (21:51)
[2022-09-29] MEDS: cloNIDine HCL 0.2 MG TABLET PO (21:51)
[2022-09-30] MEDS: busPIRone HCl 10 MG TABLET PO ×3 (08:56→21:25)
[2022-09-30] MEDS: methADONE HCl 20 MG/2 ML ORAL.CONC 175 MG PO (08:56)
[2022-09-30] MEDS: QUEtiapine Fumarate 50 MG TABLET PO ×2 (08:56→12:46)
[2022-09-30 09:00] VITALS: BP 120/77; PULSE 88; RESP 16; TEMP 36.5; O2SAT 99
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
[2022-09-30 21:15] VITALS: BP 108/62; PULSE 68; TEMP 36.6; O2SAT 97
[2022-09-30] MEDS: Sertraline HCL 50 MG TABLET 150 MG PO (21:24)
[2022-09-30] MEDS: Mirtazapine 30 MG TABLET PO (21:24)
[2022-09-30] MEDS: Prazosin HCL 5 MG CAPSULE PO (21:25)
[2022-09-30] MEDS: Prazosin HCL 1 MG CAPSULE 3 MG PO (21:25)
[2022-09-30] MEDS: QUEtiapine Fumarate 300 MG TABLET PO (21:25)
[2022-10-01] MEDS: QUEtiapine Fumarate 50 MG TABLET PO ×2 (09:10→12:26)
[2022-10-01] MEDS: methADONE HCl 20 MG/2 ML ORAL.CONC 175 MG PO (09:10)
[2022-10-01] MEDS: busPIRone HCl 10 MG TABLET PO (09:12)
[2022-10-01 10:19] VITALS: BP 96/60; PULSE 111; TEMP 36.7; O2SAT 97
--- NOTE | 2022-10-01 13:55 | HO.PSYCHPN ---
Subjective Subjective Date of Service: 10/01/22 Reason For Visit: SI Interim History: seen lying in bed in his room. states he is anxious. slept better last night. on zoloft, seroquel, remeron, methadone. agrees to DC buspar as likely not contributing much and 3rd serotonergic agent. planning for discharge thursday, aftercare set up for next week. staying in a nursing home. per staff, pleasant. mod anx/dep. isolative. no SI/HI/AVH. napping. slept most of shift. Mental Status Exam Mental Status Exam Narrative: Patient Appearance:?Appropriate Patient Orientation:?Person, Place, Time and Situation Level of Consciousness:?Alert Patient Behavior: calm,, Cooperative and Good Eye Contact Mood Description:?anxious Affect Description:?constricted Patient Cognition Impaired:?No Ability to Follow Directions:?Good Memory Description:?Intact Hallucinations:?None Delusions:?Not Present Thought Process:?Goal oriented and organized Thought Content:Denies SI or HI Depressive Symptoms:?Increased Anxiety Judgement:?Fair Diagnostics Vital Signs (24Hr): Vital Signs - 24 hr 09/30/22 21:15 10/01/22 10:19 Temperature 97.9 F 98.1 F Pulse Rate 68 111 H Blood Pressure 108/62 96/60 Pulse Oximetry 97 97 Oxygen Delivery Method Room Air Room Air BMI result Body Mass Index 23.6 Labs 09/26/22 22:34 09/26/22 22:34 Medications Medications Current Medications Acetaminophen (Acetaminophen 325 Mg Tablet) 650 mg PO Q6H PRN PRN Reason: Headache/Pain Mild Scale (1-3) Last Admin: 09/28/22 09:38 Dose: 650 mg Al Hydroxide/Mg Hydroxide (Magnesium Hydrox/Alum Hydrox 30 Ml Oral.Susp) 30 ml PO Q6H PRN PRN Reason: Heartburn/Nausea Hydroxyzine HCl (Hydroxyzine Hcl 25 Mg Tablet) 25 mg PO Q6H PRN PRN Reason: Anxiety Magnesium Hydroxide (Milk Of Magnesia 30 Ml Oral.Susp) 30 ml PO DAILY PRN PRN Reason: Constipation Methadone HCl (Methadone Hcl 20 Mg/2 Ml Oral.Conc) 175 mg PO DAILY@0700 [facility] Last Admin: 10/01/22 09:10 Dose: 175 mg Mirtazapine (Mirtazapine 30 Mg Tablet) 30 mg PO BEDTIME [facility] Last Admin: 09/30/22 21:24 Dose: 30 mg Prazosin HCl (Prazosin Hcl 5 Mg Capsule) 5 mg PO BEDTIME [facility] Last Admin: 09/30/22 21:25 Dose: 5 mg Prazosin HCl (Prazosin Hcl 1 Mg Capsule) 3 mg PO BEDTIME [facility] Last Admin: 09/30/22 21:25 Dose: 3 mg Quetiapine Fumarate (Quetiapine Fumarate 50 Mg Tablet) 50 mg PO BID@0800,1200 [facility] Last Admin: 10/01/22 12:26 Dose: 50 mg Quetiapine Fumarate (Quetiapine Fumarate 300 Mg Tablet) 300 mg PO BEDTIME [facility] Last Admin: 09/30/22 21:25 Dose: 300 mg Sertraline HCl (Sertraline Hcl 50 Mg Tablet) 150 mg PO BEDTIME [facility] Last Admin: 09/30/22 21:24 Dose: 150 mg Allergies Allergies Allergy/AdvReac Type Severity Reaction Status Date / Time codeine Allergy RESTLESS Verified 09/26/22 22:03 LEG trazodone Allergy Hives Verified 09/26/22 22:03 Assessment & Plan Assessment & Plan (1) Bipolar disorder: Qualifiers: Active/Remission status: currently active Current bipolar episode type: depressed Current episode severity: severe Psychotic features: with psychotic features Qualified Code(s): F31.5 - Bipolar disorder, current episode depressed, severe, with psychotic features Status: Acute Code(s): F31.9 - Bipolar disorder, unspecified (2) Opioid use disorder: Status: Acute Code(s): F11.90 - Opioid use, unspecified, uncomplicated (3) PTSD (post-traumatic stress disorder): Status: Acute Code(s): F43.10 - Post-traumatic stress disorder, unspecified Plan Presents with substance relapse, depression, PTSD and recent overdose attempts. 09/28: Plan to engage (very minimal now), restart medications, stabilize and treatment plan accordingly. 09/29: declines interview. denies withdrawal. continue current mgmt. 09/30: DC clonidine as redundant to prazosin, increase prazosin by 2 mg tonight to compensate (6 mg to 8 mg). increase zoloft to 150 mg for depression and anxiety. increase remeron to 30 mg for insomnia. otherwise continue current mgmt. pt anticipating having a PACT team at discharge; will coordinate with SW. 10/01: stable. slept better last night. DC buspar as redundant and likely not very effective. low BP, continue current regimen and observe. planning for thursday discharge, [facility] intake scheduled for next week. Reason for contiued inpatient stay Substantial Risk for: inability to function and rapid decompensation Time Spent With Patient Time: Total time managing care of this patient today __25__ minutes.
[2022-10-01 20:27] VITALS: BP 118/65; PULSE 88; TEMP 36.8; O2SAT 97
[2022-10-01] MEDS: Sertraline HCL 50 MG TABLET 150 MG PO (20:29)
[2022-10-01] MEDS: QUEtiapine Fumarate 300 MG TABLET PO (20:29)
[2022-10-01] MEDS: Mirtazapine 30 MG TABLET PO (20:29)
[2022-10-01] MEDS: Prazosin HCL 5 MG CAPSULE PO (20:29)
[2022-10-01] MEDS: Prazosin HCL 1 MG CAPSULE 3 MG PO (20:29)
[2022-10-02 07:00] VITALS: BMI 22.4
[2022-10-02] MEDS: methADONE HCl 20 MG/2 ML ORAL.CONC 175 MG PO (08:11)
[2022-10-02] MEDS: QUEtiapine Fumarate 50 MG TABLET PO ×2 (08:12→13:04)
[2022-10-02 08:17] VITALS: BP 115/76; PULSE 79; TEMP 36.6; O2SAT 97
[2022-10-02] MEDS: Nicotine 21 MG PATCH.TD24 TRANSDERMA (09:58)
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
[2022-10-02] MEDS: QUEtiapine Fumarate 300 MG TABLET PO (20:13)
[2022-10-02] MEDS: Sertraline HCL 50 MG TABLET 150 MG PO (20:13)
[2022-10-02] MEDS: Prazosin HCL 5 MG CAPSULE 10 MG PO (20:14)
[2022-10-02] MEDS: Mirtazapine 30 MG TABLET PO (20:14)
[2022-10-02 20:20] VITALS: BP 139/75; PULSE 77; RESP 16; TEMP 36.8; O2SAT 98
[2022-10-03] MEDS: methADONE HCl 20 MG/2 ML ORAL.CONC 175 MG PO (06:29)
[2022-10-03 07:55] VITALS: BP 113/67; PULSE 66; RESP 16; TEMP 35.6; O2SAT 96
[2022-10-03] MEDS: QUEtiapine Fumarate 50 MG TABLET PO (08:31)
[2022-10-03] MEDS: Nicotine 21 MG PATCH.TD24 TRANSDERMA (08:32)
== END 2022-10-03 10:39 | disposition home or self-care (01) | DRG 753 ==
LOC: HO.ED 09-27 02:20 → HO.PADLT16 09-27 14:23
PROVIDERS: Admitting Provider Psychiatry & Neurology Psychiatry; Emergency Provider Student in an Organized Health Care Education/Training Program; Visit Provider Psychiatry & Neurology Psychiatry
DX: F31.5 Bipolar disorder, current episode depressed, severe, with psychotic features (principal); R45.851 Suicidal ideations; F43.10 Post-traumatic stress disorder, unspecified; Z20.822 Contact with and (suspected) exposure to COVID-19; Z91.51 Personal history of suicidal behavior; Z88.5 Allergy status to narcotic agent; Z79.899 Other long term (current) drug therapy
CPT/HCPCS: 36415; 80053; 80307; 81001; 81003; 82077; 85027; 87635; 93005; 99285; S9485

== ENCOUNTER 2023-01-12 21:43 | Inpatient (IN) | payer OTHER, SELFPAY ==
[2023-01-12 21:48] VITALS: BP 117/81; PULSE 97; RESP 18; TEMP 36; O2SAT 97; BMI 25.4
--- NOTE | 2023-01-12 22:16 | ED_ITS ---
HPI - Psych General Chief Complaint: Psychiatric Symptoms Stated Complaint: SI/Crisis Time Seen by Provider: 01/12/23 22:14 Source: patient Mode of arrival: ambulatory Limitations: no limitations History of Present Illness HPI Narrative: Patient with history of depression with history of SI for last few months with a plan to borrow firearm or of jumping over the bypass had a head since feeling worse hearing voices Related Data Home Medications Medication Instructions Recorded Confirmed clonazepam 0.5 mg tablet 0.5 mg PO TID 01/12/23 01/12/23 clonidine HCl 0.1 mg tablet 0.1 mg PO BEDTIME 01/12/23 01/12/23 hydroxyzine pamoate 50 mg capsule 50 mg PO TID PRN Anxiety 01/12/23 01/12/23 melatonin 3 mg tablet 3 mg PO BEDTIME PRN Insomnia 01/12/23 01/12/23 prazosin 2 mg capsule 8 mg PO BEDTIME 01/12/23 01/12/23 quetiapine 400 mg tablet 400 mg PO BEDTIME 01/12/23 01/12/23 venlafaxine 150 mg 150 mg PO DAILY 01/12/23 01/12/23 capsule,extended release 24 hr Previous Rx's Medication Instructions Recorded nicotine 21 mg/24 hr daily 21 mg transdermal DAILY 28 days 10/02/22 transdermal patch #28 ea Allergies Allergy/AdvReac Type Severity Reaction Status Date / Time codeine Allergy RESTLESS Verified 01/12/23 21:47 LEG trazodone Allergy Hives Verified 01/12/23 21:47 Review of Systems Review of Systems: Yes all other systems are reviewed and are negative PMFSH Past Medical History Medical History Bipolar disorder Depression with suicidal ideation Social History Social History Household Members: None Do you presently have visiting nurse or other home services: No Unable to assess alcohol history related to: Unknown Patient Tobacco Use Status: Never used Tobacco Tobacco use type: Cigarette e-Cigarette/Vaping Use: Never Used Second Hand Smoke Exposure: No Substance Use Type: Amphetamines, Crack/Cocaine, Marijuana and Opiates Advance Directives: No Advance Directives Information Provided: No service: No Sexual orientation: Straight/Heterosexual Physical Exam Vital Signs: Vital Signs: Last Vital Signs Temp 98.4 F 01/13/23 06:28 Pulse 98 01/13/23 06:28 Resp 18 01/13/23 06:28 BP 124/82 01/13/23 06:28 Pulse Ox 95 01/13/23 06:28 O2 Del Method Room Air 01/13/23 06:28 BMI result Body Mass Index 25.4 Appearance: Alert. Oriented X3. No acute distress. Eyes: PERRLA, No Nystagmus ENT: Pharynx normal. Oral Mucosa moist Neck: Normal inspection. Neck supple. CVS: Normal heart rate and rhythm. Pulses normal. Respiratory: No respiratory distress. Equal air entry bilateral, no wheezing/rales/rhonchi Abdomen: Soft and nontender. Bowel sounds are present, no mass palpable, no CVA tenderness Skin: Skin warm and dry. Normal skin color. Normal skin turgor. Extremities: No lower extremity edema. No calf tenderness Neuro: Oriented X 3. No motor deficit. No sensory deficit.No cerebellar signs , cranial nerves II-XII intact Medications Administered Generic Name Dose Route Start Last Admin Trade Name Freq PRN Reason Stop Dose Admin Clonazepam 0.5 mg 01/13/23 00:15 01/13/23 01:31 Clonazepam 0.5 Mg Tablet PO Not Given TID [facility] Clonidine HCl 0.1 mg 01/13/23 00:15 01/13/23 01:32 Clonidine Hcl 0.1 Mg Tablet PO Not Given BEDTIME [facility] Protocol Prazosin HCl 3 mg 01/13/23 00:30 01/13/23 01:32 Prazosin Hcl 1 Mg Capsule PO Not Given BEDTIME [facility] Protocol Prazosin HCl 5 mg 01/13/23 00:30 01/13/23 01:32 Prazosin Hcl 5 Mg Capsule PO Not Given BEDTIME [facility] Protocol Quetiapine Fumarate 400 mg 01/13/23 00:15 01/13/23 01:32 Quetiapine Fumarate 400 Mg Tablet PO Not Given BEDTIME [facility] Medical Decision Making Lab Data 01/12/23 22:16 01/12/23 22:16 Labs: Lab Results 01/12/23 01/12/23 01/12/23 Range/Units 22:16 22:16 22:34 WBC 6.3 (4.8-10.8) X10*3/uL RBC 4.50 L (4.60-5.80) X10*6/uL Hgb 13.0 L (14.0-18.0) g/dl Hct 38.9 L (42.0-52.0) % MCV 86.4 (80.0-98.0) fL MCH 28.9 (27.0-33.0) pg MCHC 33.4 (31.0-36.0) g/dl RDW 12.9 (11.0-16.0) % Plt Count 227 (160-400) X10*3/uL MPV 9.2 L (9.4-12.4) fL Immature Gran % (Auto) 0.5 H (0.0-0.4) % Neut % (Auto) 52.6 (45-73) % Lymph % (Auto) 34.4 (20-40) % [place] % (Auto) 9.9 (2-11) % Eos % (Auto) 2.1 (0-4) % Baso % (Auto) 0.5 (0-2) % Lymph # (Auto) 2.2 (1.2-4.9) X10*3/uL [place] # (Auto) 0.6 (0.1-1.2) X10*3/uL Eos # (Auto) 0.1 (0.0-0.4) X10*3/uL Baso # (Auto) 0.0 (0.0-0.2) X10*3/uL Abs Immat Gran (auto) 0.03 (0.00-0.03) X10*3/uL Absolute Neuts (auto) 3.3 (2.0-8.3) x10*3/uL Absolute Nucleated RBC 0.000 (0.0-0.012) X10*3/uL Nucleated RBC % (auto) 0.0 (0.0-0.2) /100WBC Sodium 137 (135-145) mmol/L Potassium 3.6 (3.3-5.1) mmol/L Chloride 99 (96-108) mmol/L Carbon Dioxide 28 (22-29) mmol/L Anion Gap 14 (12-20) BUN 13 (9-16) mg/dL Creatinine 0.91 (0.5-1.4) mg/dL Estim Creat Clear Calc 150.6 Estimated GFR > 60 Random Glucose 116 H (60-115) mg/dL Calcium 9.8 (8.4-10.2) mg/dL Total Bilirubin 0.4 (0.0-1.0) mg/dL AST 155 H (5-37) U/L ALT 435 H (0-40) U/L Alkaline Phosphatase 115 (39-117) U/L Total Protein 8.0 (6.5-8.0) g/dL Albumin 4.4 (3.5-5.0) g/dL Urine Color Urine Appearance Urine pH (5.0-9.0) Ur Specific [place] (1.005-1.025) Urine Protein (Neg-Trace) mg/dL Urine Glucose (UA) (Negative) mg/dL Urine Ketones (Negative) mg/dL Urine Blood (Negative) Urine Nitrite (Negative) Ur Leukocyte Esterase (Negative) Urine RBC (0-2) /HPF Urine WBC (0-5) /HPF Ur Squamous Epith Cells (0-2) /HPF Urine Bacteria (None Seen) Hyaline Casts (0-2) /LPF Urine Opiates Screen Not Detected (Not Detect) Urine Fentanyl Screen POSITIVE H (Not Detect) Ur Barbiturates Screen Not Detected (Not Detect) Ur Phencyclidine Scrn Not Detected (Not Detect) Ur Amphetamines Screen Not Detected (Not Detect) U Benzodiazepines Scrn Not Detected (Not Detect) Urine Cocaine Screen Not Detected (Not Detect) U Marijuana (THC) Screen POSITIVE H (Not Detect) Ethyl Alcohol < 10 mg/dL 01/12/23 Range/Units 22:34 WBC (4.8-10.8) X10*3/uL RBC (4.60-5.80) X10*6/uL Hgb (14.0-18.0) g/dl Hct (42.0-52.0) % MCV (80.0-98.0) fL MCH (27.0-33.0) pg MCHC (31.0-36.0) g/dl RDW (11.0-16.0) % Plt Count (160-400) X10*3/uL MPV (9.4-12.4) fL Immature Gran % (Auto) (0.0-0.4) % Neut % (Auto) (45-73) % Lymph % (Auto) (20-40) % [place] % (Auto) (2-11) % Eos % (Auto) (0-4) % Baso % (Auto) (0-2) % Lymph # (Auto) (1.2-4.9) X10*3/uL [place] # (Auto) (0.1-1.2) X10*3/uL Eos # (Auto) (0.0-0.4) X10*3/uL Baso # (Auto) (0.0-0.2) X10*3/uL Abs Immat Gran (auto) (0.00-0.03) X10*3/uL Absolute Neuts (auto) (2.0-8.3) x10*3/uL Absolute Nucleated RBC (0.0-0.012) X10*3/uL Nucleated RBC % (auto) (0.0-0.2) /100WBC Sodium (135-145) mmol/L Potassium (3.3-5.1) mmol/L Chloride (96-108) mmol/L Carbon Dioxide (22-29) mmol/L Anion Gap (12-20) BUN (9-16) mg/dL Creatinine (0.5-1.4) mg/dL Estim Creat Clear Calc Estimated GFR Random Glucose (60-115) mg/dL Calcium (8.4-10.2) mg/dL Total Bilirubin (0.0-1.0) mg/dL AST (5-37) U/L ALT (0-40) U/L Alkaline Phosphatase (39-117) U/L Total Protein (6.5-8.0) g/dL Albumin (3.5-5.0) g/dL Urine Color Yellow Urine Appearance Clear Urine pH 5.5 (5.0-9.0) Ur Specific [place] 1.015 (1.005-1.025) Urine Protein Negative (Neg-Trace) mg/dL Urine Glucose (UA) Negative (Negative) mg/dL Urine Ketones Negative (Negative) mg/dL Urine Blood Negative (Negative) Urine Nitrite Negative (Negative) Ur Leukocyte Esterase Trace H (Negative) Urine RBC 0-2 (0-2) /HPF Urine WBC 0-5 (0-5) /HPF Ur Squamous Epith Cells 0-2 (0-2) /HPF Urine Bacteria None Seen (None Seen) Hyaline Casts 0-2 (0-2) /LPF Urine Opiates Screen (Not Detect) Urine Fentanyl Screen (Not Detect) Ur Barbiturates Screen (Not Detect) Ur Phencyclidine Scrn (Not Detect) Ur Amphetamines Screen (Not Detect) U Benzodiazepines Scrn (Not Detect) Urine Cocaine Screen (Not Detect) U Marijuana (THC) Screen (Not Detect) Ethyl Alcohol mg/dL Discharge Plan Discharge Clinical Impression: Depression, Chronic schizophrenia, Suicidal ideation Patient Disposition: Still a Patient Prescriptions: No Action nicotine 21 mg/24 hr Patch 24 Hour 21 mg transdermal DAILY 28 Days Qty: 28 0RF prazosin 2 mg Capsule 8 mg PO BEDTIME hydroxyzine pamoate 50 mg Capsule 50 mg PO TID PRN (Reason: Anxiety) melatonin 3 mg Tablet 3 mg PO BEDTIME PRN (Reason: Insomnia) clonidine HCl 0.1 mg Tablet 0.1 mg PO BEDTIME clonazepam 0.5 mg tablet 0.5 mg PO TID venlafaxine 150 mg Capsule,Extended Release 24hr 150 mg PO DAILY quetiapine 400 mg Tablet 400 mg PO BEDTIME Interventions: Chana-Suicide Risk Severity Scale Last Done: 01/13/23 00:14
[2023-01-12 22:21] LABS: MANUAL DIFF FLAG NO
[2023-01-12 22:25] LABS: Basophils Percent Auto 0.5 % (0-2); Eosinophils Absolute Auto 0.1 X10*3/uL (0.0-0.4); Eosinophils Percent Auto 2.1 % (0-4); Hematocrit 38.9 % (42.0-52.0); Imm Gran Abs Auto 0.03 X10*3/uL (0.00-0.03); Imm Gran Pct Auto 0.5 % (0.0-0.4); Lymphocytes Absolute Auto 2.2 X10*3/uL (1.2-4.9); Lymphocytes Percent Auto 34.4 % (20-40); Mean Corpuscular HGB Conc 33.4 g/dl (31.0-36.0); Mean Corpuscular Hemoglobin 28.9 pg (27.0-33.0); Mean Corpuscular Volume 86.4 fL (80.0-98.0); Mean Platelet Volume 9.2 fL (9.4-12.4); Monocytes Absolute Auto 0.6 X10*3/uL (0.1-1.2); Monocytes Percent Auto 9.9 % (2-11); Neutrophils Absolute Auto 3.3 x10*3/uL (2.0-8.3); Neutrophils Percent Auto 52.6 % (45-73); Platelet Count 227 X10*3/uL (160-400); Red Cell Distribution Width 12.9 % (11.0-16.0); White Blood Count 6.3 X10*3/uL (4.8-10.8)
[2023-01-12 22:40] LABS: Alanine Aminotransferase 435 U/L (0-40); Albumin Level 4.4 g/dL (3.5-5.0); Alkaline Phosphatase 115 U/L (39-117); Anion Gap 14 (12-20); Aspartate Amino Transferase 155 U/L (5-37); Bilirubin Total 0.4 mg/dL (0.0-1.0); Blood Urea Nitrogen 13 mg/dL (9-16); Calcium 9.8 mg/dL (8.4-10.2); Carbon Dioxide 28 mmol/L (22-29); Chloride 99 mmol/L (96-108); Creatinine Clr Calc Pharmacy 150.6; Estimated Glomerular Filt Rate > 60; Ethanol < 10 mg/dL; Glucose Random 116 mg/dL (60-115); Potassium 3.6 mmol/L (3.3-5.1); Sodium 137 mmol/L (135-145)
[2023-01-12 22:45] LABS: Appearance Urine Clear; Color Urine Yellow; Glucose Urine UA Negative (Negative); Leukocyte Esterase Urine Trace (Negative); Nitrite Urine Negative (Negative); PH 5.5 (5.0-9.0); Specific Gravity - Urine 1.015 (1.005-1.025); UMIC TRIGGER UA YES; Urine Blood Negative (Negative); Urine Ketones Negative (Negative); Urine Protein Negative (Neg-Trace)
[2023-01-12 22:49] LABS: Bacteria Urine None Seen (None Seen); Hyaline Casts Urine 0-2 /LPF (0-2); RBC Urine 0-2 /HPF (0-2); Squamous Epithelial Cell Urine 0-2 /HPF (0-2); WBC Urine 0-5 /HPF (0-5)
[2023-01-12 22:55] LABS: Amphetamine Screen Urine Not Detected (Not Detect); Barbiturates, Urine Not Detected (Not Detect); Benzodiazepines Screen Urine Not Detected (Not Detect); Cannabinoid Screen Urine POSITIVE (Not Detect); Cocaine Screen Urine Not Detected (Not Detect); Fentanyl, urine POSITIVE (Not Detect); Opiate Screen Urine Not Detected (Not Detect); Phencyclidine Screen Urine Not Detected (Not Detect)
--- NOTE | 2023-01-13 06:02 | PC.NURSE ---
Patient slept through the night, no distress observed/reported, behavior non concerning, care consult ordered for suicidal ideation, pending care team evaluation, med rec completed/ approved by providers, med was held due to patient asleep. Patient was found with his prescribed Klonopin on him, it was removed away immediately and placed it with rest of medication he came with, VSS, will continue to monitor
[2023-01-13 06:28] VITALS: BP 124/82; PULSE 98; RESP 18; TEMP 36.9; O2SAT 95
[2023-01-13] MEDS: Nicotine 21 MG PATCH.TD24 TRANSDERMA ×2 (07:58→13:52)
[2023-01-13] MEDS: Venlafaxine HCl ER 150 MG CAP.ER.24H PO (08:00)
[2023-01-13] MEDS: clonazePAM 0.5 MG TABLET PO ×3 (08:00→20:42)
--- NOTE | 2023-01-13 10:33 | MHC.CARE ---
[facility] [email or web address]: , , [address] [place] [address]. [phone] [address], peer art therapy specialist, [email or web address]: , , [email or web address]. [id number]
--- NOTE | 2023-01-13 12:04 | HE.PHANOTE ---
RE: METHADONE Pharmacy recieved patients methadone verification form. Confirmed with Sharri Donovan, patient is on 175 mg, last dosed 01/12/23
[2023-01-13 12:08] LABS: COVID-19 Test Negative (Negative); IDNOW Serial# 9DB6401D
[2023-01-13] MEDS: Milk of Magnesia 30 ML ORAL.SUSP PO (12:09)
[2023-01-13] MEDS: methADONE HCl 20 MG/2 ML ORAL.CONC 175 MG PO (12:15)
[2023-01-13 17:04] VITALS: BP 123/87; PULSE 82; RESP 18; TEMP 36.8; O2SAT 92
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
[2023-01-13] MEDS: cloNIDine HCL 0.1 MG TABLET PO (20:41)
[2023-01-13] MEDS: Prazosin HCL 1 MG CAPSULE 3 MG PO (20:41)
[2023-01-13] MEDS: QUEtiapine Fumarate 400 MG TABLET PO (20:42)
[2023-01-13] MEDS: traZODone HCL 50 MG TABLET PO (20:42)
[2023-01-13] MEDS: Melatonin 3 MG TABLET PO (20:42)
[2023-01-13 21:14] VITALS: BP 112/73; PULSE 80; RESP 18; TEMP 36.7; O2SAT 96
[2023-01-13] MEDS: Prazosin HCL 5 MG CAPSULE PO (23:22)
[2023-01-14] MEDS: Milk of Magnesia 30 ML ORAL.SUSP PO (09:55)
[2023-01-14] MEDS: Nicotine 21 MG PATCH.TD24 TRANSDERMA (09:55)
[2023-01-14] MEDS: Venlafaxine HCl ER 150 MG CAP.ER.24H PO (09:56)
[2023-01-14] MEDS: clonazePAM 0.5 MG TABLET PO ×3 (09:56→21:51)
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
[2023-01-14 10:09] VITALS: BP 111/71; PULSE 86; RESP 18; TEMP 36.4; O2SAT 96
[2023-01-14] MEDS: methADONE HCl 20 MG/2 ML ORAL.CONC 175 MG PO (10:37)
[2023-01-14 11:25] LABS: Alanine Aminotransferase 330 U/L (0-40); Albumin Level 4.3 g/dL (3.5-5.0); Alkaline Phosphatase 112 U/L (39-117); Anion Gap 13 (12-20); Aspartate Amino Transferase 111 U/L (5-37); Bilirubin Total 0.6 mg/dL (0.0-1.0); Blood Urea Nitrogen 12 mg/dL (9-16); Calcium 9.7 mg/dL (8.4-10.2); Carbon Dioxide 28 mmol/L (22-29); Chloride 101 mmol/L (96-108); Cholesterol 165 mg/dL; Creatinine Clr Calc Pharmacy 157.5; Estimated Glomerular Filt Rate > 60; Free T4 (Free Thyroxine) 0.67 ng/dL (0.71-1.85); Glucose Fasting 92 mg/dL (60-99); HDL Cholesterol 38 mg/dL; LDL Cholesterol Calculated 63 mg/dl; Potassium 4.3 mmol/L (3.3-5.1); Sodium 138 mmol/L (135-145); Thyroid Stimulating Hormone 1.45 uIU/mL (0.32-4.0); Triglycerides 320 mg/dL
[2023-01-14 11:29] LABS: Estimated Average Glucose 91 mg/dL; Hemoglobin A1c % 4.8 %
[2023-01-14 11:38] LABS: Folate 14.7 ng/mL (> or = 4.0); Vitamin B12 355 pg/mL (200-900)
[2023-01-14 21:35] VITALS: BP 122/72; PULSE 64; RESP 18; TEMP 36.4; O2SAT 95
[2023-01-14] MEDS: Sennosides 8.6 MG TABLET PO (21:51)
[2023-01-14] MEDS: cloNIDine HCL 0.1 MG TABLET PO (21:51)
[2023-01-14] MEDS: Docusate Sodium 100 MG CAPSULE PO (21:51)
[2023-01-14] MEDS: Prazosin HCL 5 MG CAPSULE PO (21:51)
[2023-01-14] MEDS: Prazosin HCL 1 MG CAPSULE 3 MG PO (21:51)
[2023-01-14] MEDS: hydrOXYzine HCL 50 MG TABLET PO (21:52)
[2023-01-14] MEDS: QUEtiapine Fumarate 400 MG TABLET PO (21:52)
[2023-01-14] MEDS: Melatonin 3 MG TABLET PO (21:52)
[2023-01-15 06:00] VITALS: BP 128/80; PULSE 66; RESP 16; TEMP 36.8; O2SAT 96
[2023-01-15] MEDS: clonazePAM 0.5 MG TABLET PO ×3 (09:21→21:40)
[2023-01-15] MEDS: Nicotine 21 MG PATCH.TD24 TRANSDERMA (09:21)
[2023-01-15] MEDS: methADONE HCl 20 MG/2 ML ORAL.CONC 175 MG PO (09:21)
[2023-01-15] MEDS: Venlafaxine HCl ER 150 MG CAP.ER.24H PO (09:21)
[2023-01-15] MEDS: hydrOXYzine HCL 50 MG TABLET PO ×3 (09:21→21:40)
--- NOTE | 2023-01-15 10:14 | P.PNPSI_ITS ---
Subjective Subjective Date of Service: 01/15/23 Reason For Visit: SI Subjective Notes: Conditional Voluntary Interim History: Reviewed with team and Dr. Mullins. Patient presents calm and cooperative during 1:1. Pt reports his depression decreasing but anxiety remaining high. States he did not go to groups because they make him anxious; will attempt to attend 1 group today. Pt reports SI comes and goes throughout the day. Patient stated, I'm trying to get a handle on not acting on those thoughts . Medication Compliance: Yes Side effects from medications: No Attending Groups: No Review of Systems Review of Systems Yes all other systems are reviewed and are negative Constitutional: Reports as per HPI Eyes: Reports as per HPI Reports as per HPI Cardiovascular: Reports as per HPI Respiratory: Reports as per HPI Gastrointestinal: Reports as per HPI Genitourinary: Reports as per HPI Musculoskeletal: Reports as per HPI Skin/Breast: Reports as per HPI Reports as per HPI Psychiatric: Reports as per HPI Endocrine: Reports as per HPI Hematologic/Lymphatic: Reports as per HPI Allergic/Immunologic: Reports as per HPI Mental Status Exam Mental Status Exam Narrative: Pt is alert and oriented; behavior is cooperative and calm; patient is not in distress; dressed in casual attire; mood is described as depressed ; eye contact appropriate; Speech is normal rate, volume and prosody and not pressured; no psychomotor agitation/retardation present; thought process is organized and goal directed; Thought content is on tx; otherwise pertinent to r elevant topics and without any delusional content, paranoid ideations or grandiosity; denies any HI. Pt reports suicidal ideation on and off throughout the day. There is no evidence of perceptual disturbance. Patients insight and judgment are poor. Diagnostics Vital Signs (24Hr): Vital Signs - 24 hr 01/14/23 21:35 01/15/23 06:00 Temperature 97.6 F 98.2 F Pulse Rate 64 66 Respiratory Rate 18 16 Blood Pressure 122/72 128/80 Pulse Oximetry 95 96 Oxygen Delivery Method Room Air BMI result Body Mass Index 25.4 Labs 01/12/23 22:16 01/14/23 10:19 Labs: Laboratory Results - last 48 hr 01/13/23 01/14/23 01/14/23 11:43 10:19 10:19 Sodium 138 Potassium 4.3 Chloride 101 Carbon Dioxide 28 Anion Gap 13 BUN 12 Creatinine 0.87 Estim Creat Clear Calc 157.5 Estimated GFR > 60 Fasting Glucose 92 Estimat Average Glucose 91 Hemoglobin A1c % 4.8 Calcium 9.7 Total Bilirubin 0.6 AST 111 H ALT 330 H Alkaline Phosphatase 112 Total Protein 8.0 Albumin 4.3 Triglycerides 320 Cholesterol 165 LDL Cholesterol, Calc 63 HDL Cholesterol 38 Vitamin B12 Folate TSH 1.45 Free T4 0.67 L COVID-19 ([facility]) Negative COVID-19 Clin Com See Note 01/14/23 10:19 Sodium Potassium Chloride Carbon Dioxide Anion Gap BUN Creatinine Estim Creat Clear Calc Estimated GFR Fasting Glucose Estimat Average Glucose Hemoglobin A1c % Calcium Total Bilirubin AST ALT Alkaline Phosphatase Total Protein Albumin Triglycerides Cholesterol LDL Cholesterol, Calc HDL Cholesterol Vitamin B12 355 Folate 14.7 TSH Free T4 COVID-19 ([facility]) COVID-19 Clin Com Medications Medications Current Medications Acetaminophen (Acetaminophen 325 Mg Tablet) 650 mg PO Q6H PRN PRN Reason: Headache/Pain Mild Scale (1-3) Al Hydroxide/Mg Hydroxide (Magnesium Hydrox/Alum Hydrox 30 Ml Oral.Susp) 30 ml PO Q6H PRN PRN Reason: Heartburn/Nausea Clonazepam (Clonazepam 0.5 Mg Tablet) 0.5 mg PO TID RUSSELL Last Admin: 01/15/23 09:21 Dose: 0.5 mg Clonidine HCl (Clonidine Hcl 0.1 Mg Tablet) 0.1 mg PO BEDTIME RUSSELL; Protocol Last Admin: 01/14/23 21:51 Dose: 0.1 mg Docusate Sodium (Docusate Sodium 100 Mg Capsule) 100 mg PO BEDTIME RUSSELL Last Admin: 01/14/23 21:51 Dose: 100 mg Hydroxyzine HCl (Hydroxyzine Hcl 50 Mg Tablet) 50 mg PO TID PRN PRN Reason: Anxiety Last Admin: 01/15/23 09:21 Dose: 50 mg Magnesium Hydroxide (Milk Of Magnesia 30 Ml Oral.Susp) 30 ml PO DAILY PRN PRN Reason: Constipation Last Admin: 01/14/23 09:55 Dose: 30 ml Melatonin (Melatonin 3 Mg Tablet) 3 mg PO BEDTIME PRN PRN Reason: Insomnia Last Admin: 01/14/23 21:52 Dose: 3 mg Methadone HCl (Methadone Hcl 20 Mg/2 Ml Oral.Conc) 175 mg PO DAILY [facility] Last Admin: 01/15/23 09:21 Dose: 175 mg Nicotine (Nicotine 21 Mg Patch.Td24) 21 mg TRANSDERMA DAILY RUSSELL Last Admin: 01/15/23 09:21 Dose: 21 mg Nicotine Polacrilex (Nicotine Polacrilex 2 Mg Gum) 4 mg BUCCAL Q2H PRN PRN Reason: Nicotine Cravings Prazosin HCl (Prazosin Hcl 1 Mg Capsule) 3 mg PO BEDTIME RUSSELL; Protocol Last Admin: 01/14/23 21:51 Dose: 3 mg Prazosin HCl (Prazosin Hcl 5 Mg Capsule) 5 mg PO BEDTIME RUSSELL; Protocol Last Admin: 01/14/23 21:51 Dose: 5 mg Quetiapine Fumarate (Quetiapine Fumarate 400 Mg Tablet) 400 mg PO BEDTIME RUSSELL Last Admin: 01/14/23 21:52 Dose: 400 mg Senna (Sennosides 8.6 Mg Tablet) 8.6 mg PO BEDTIME RUSSELL Last Admin: 01/14/23 21:51 Dose: 8.6 mg Trazodone HCl (Trazodone Hcl 50 Mg Tablet) 50 mg PO BEDTIME MRX1 PRN PRN Reason: Insomnia Last Admin: 01/13/23 20:42 Dose: 50 mg Venlafaxine HCl (Venlafaxine Hcl Er 150 Mg Cap.Er.24h) 150 mg PO DAILY RUSSELL Last Admin: 01/15/23 09:21 Dose: 150 mg Allergies Allergies Allergy/AdvReac Type Severity Reaction Status Date / Time codeine Allergy RESTLESS Verified 01/12/23 21:47 LEG trazodone Allergy Hives Verified 01/12/23 21:47 Assessment & Plan Assessment & Plan (1) Depression with suicidal ideation: Status: Inactive Code(s): F32.A - Depression, unspecified; R45.851 - Suicidal ideations (2) PTSD (post-traumatic stress disorder): Status: Acute Code(s): F43.10 - Post-traumatic stress disorder, unspecified (3) Opioid use disorder: Status: Acute Code(s): F11.90 - Opioid use, unspecified, uncomplicated Plan Patient is a 32 year old male with hx of MDD, PTSD and polysubstance abuse who self presented to [facility] d/t suicidal ideation with plan to shoot himself or leap from overpass secondary to increased depressive symptoms. Plan: CV 15 minute safety checks Continue home medications Refer for outpatient therapy Possibly refer to [facility] 01/15: Pt reports his depression decreasing but anxiety remaining high. States he did not go to groups because they make him anxious; will attempt to attend 1 group today. Pt reports SI comes and goes throughout the day. Continue with current tx plan. Patient educated on: diagnosis, medication risk/benefits, substance abuse and therapeutic strategies Informed Consent: understands Reason for continued inpatient stay Substantial Risk for: harm to self and med/psych decompensation Time Spent With Patient Time: Total time managing care of this patient today _30___ minutes.
[2023-01-15] MEDS: Milk of Magnesia 30 ML ORAL.SUSP PO (15:23)
[2023-01-15] MEDS: Acetaminophen 325 MG TABLET 650 MG PO (15:23)
[2023-01-15 21:35] VITALS: BP 126/79; PULSE 64; RESP 18; TEMP 36.4; O2SAT 96
[2023-01-15] MEDS: Prazosin HCL 5 MG CAPSULE PO (21:39)
[2023-01-15] MEDS: Prazosin HCL 1 MG CAPSULE 3 MG PO (21:39)
[2023-01-15] MEDS: QUEtiapine Fumarate 400 MG TABLET PO (21:40)
[2023-01-15] MEDS: Melatonin 3 MG TABLET PO (21:40)
[2023-01-15] MEDS: Docusate Sodium 100 MG CAPSULE PO (21:40)
[2023-01-15] MEDS: Sennosides 8.6 MG TABLET PO (21:40)
[2023-01-15] MEDS: cloNIDine HCL 0.1 MG TABLET PO (21:40)
[2023-01-16 09:00] VITALS: BP 114/63; PULSE 70; RESP 18; TEMP 36.6; O2SAT 95
[2023-01-16] MEDS: Nicotine 21 MG PATCH.TD24 TRANSDERMA (09:07)
[2023-01-16] MEDS: Venlafaxine HCl ER 150 MG CAP.ER.24H PO (09:08)
[2023-01-16] MEDS: methADONE HCl 20 MG/2 ML ORAL.CONC 175 MG PO (09:09)
[2023-01-16] MEDS: clonazePAM 0.5 MG TABLET PO ×3 (09:14→20:32)
--- NOTE | 2023-01-16 10:00 | HO.PSYCHPN ---
Subjective Subjective Date of Service: 01/16/23 Reason For Visit: SI Subjective Notes: Conditional Voluntary Interim History: Reviewed with team and Dr. Mullins. Patient presents calm and cooperative during 1:1. Pt feeling a bit better today. Denies SI, pt stated, I want to stay alive for my daughter and remain sober to get custody . Would like referral to [facility]. hospitality workers notified. Pt has an outpatient appointment at [facility] on Thursday. Plans on going to [facility] after discharge. Pt is requesting to be discharged Thursday morning to be able to attend appointment. If pt is able to remain in behavioral and safety control, pt will be discharged Thursday. Medication Compliance: Yes Side effects from medications: No Attending Groups: No Review of Systems Review of Systems Yes all other systems are reviewed and are negative Constitutional: Reports as per HPI Eyes: Reports as per HPI Reports as per HPI Cardiovascular: Reports as per HPI Respiratory: Reports as per HPI Gastrointestinal: Reports as per HPI Genitourinary: Reports as per HPI Musculoskeletal: Reports as per HPI Skin/Breast: Reports as per HPI Reports as per HPI Psychiatric: Reports as per HPI Endocrine: Reports as per HPI Hematologic/Lymphatic: Reports as per HPI Allergic/Immunologic: Reports as per HPI Mental Status Exam Mental Status Exam Narrative: Pt is alert and oriented; behavior is cooperative and calm; patient is not in distress; dressed in casual attire; mood is described as better ; eye contact appropriate; Speech is normal rate, volume and prosody and not pressured; no psychomotor agitation/retardation present; thought process is organized and goal directed; Thought content is on tx; otherwise pertinent to relevant topics and without any delusional content, paranoid ideations or grandiosity; denies any HI/SI. There is no evidence of perceptual disturbance. Patients insight and judgment are poor but improving. Diagnostics Vital Signs (24Hr): Vital Signs - 24 hr 01/15/23 21:35 01/16/23 09:00 Temperature 97.6 F 97.8 F Pulse Rate 64 70 Respiratory Rate 18 18 Blood Pressure 126/79 114/63 Pulse Oximetry 96 95 Oxygen Delivery Method Room Air Room Air BMI result Body Mass Index 25.4 Labs 01/12/23 22:16 01/14/23 10:19 Labs: Laboratory Results - last 48 hr 07/26/23 07/26/23 07/26/23 10:19 10:19 10:19 Sodium 138 Potassium 4.3 Chloride 101 Carbon Dioxide 28 Anion Gap 13 BUN 12 Creatinine 0.87 Estim Creat Clear Calc 157.5 Estimated GFR > 60 Fasting Glucose 92 Estimat Average Glucose 91 Hemoglobin A1c % 4.8 Calcium 9.7 Total Bilirubin 0.6 AST 111 H ALT 330 H Alkaline Phosphatase 112 Total Protein 8.0 Albumin 4.3 Triglycerides 320 Cholesterol 165 LDL Cholesterol, Calc 63 HDL Cholesterol 38 Vitamin B12 355 Folate 14.7 TSH 1.45 Free T4 0.67 L Medications Medications Current Medications Acetaminophen (Acetaminophen 325 Mg Tablet) 650 mg PO Q6H PRN PRN Reason: Headache/Pain Mild Scale (1-3) Last Admin: 01/15/23 15:23 Dose: 650 mg Al Hydroxide/Mg Hydroxide (Magnesium Hydrox/Alum Hydrox 30 Ml Oral.Susp) 30 ml PO Q6H PRN PRN Reason: Heartburn/Nausea Clonazepam (Clonazepam 0.5 Mg Tablet) 0.5 mg PO TID RUSSELL Last Admin: 01/16/23 09:14 Dose: 0.5 mg Clonidine HCl (Clonidine Hcl 0.1 Mg Tablet) 0.1 mg PO BEDTIME RUSSELL; Protocol Last Admin: 01/15/23 21:40 Dose: 0.1 mg Docusate Sodium (Docusate Sodium 100 Mg Capsule) 100 mg PO BEDTIME RUSSELL Last Admin: 01/15/23 21:40 Dose: 100 mg Hydroxyzine HCl (Hydroxyzine Hcl 50 Mg Tablet) 50 mg PO TID PRN PRN Reason: Anxiety Last Admin: 01/15/23 21:40 Dose: 50 mg Magnesium Hydroxide (Milk Of Magnesia 30 Ml Oral.Susp) 30 ml PO DAILY PRN PRN Reason: Constipation Last Admin: 01/15/23 15:23 Dose: 30 ml Melatonin (Melatonin 3 Mg Tablet) 3 mg PO BEDTIME PRN PRN Reason: Insomnia Last Admin: 01/15/23 21:40 Dose: 3 mg Methadone HCl (Methadone Hcl 20 Mg/2 Ml Oral.Conc) 175 mg PO DAILY [facility] Last Admin: 01/16/23 09:09 Dose: 175 mg Nicotine (Nicotine 21 Mg Patch.Td24) 21 mg TRANSDERMA DAILY [facility] Last Admin: 01/16/23 09:07 Dose: 21 mg Nicotine Polacrilex (Nicotine Polacrilex 2 Mg Gum) 4 mg BUCCAL Q2H PRN PRN Reason: Nicotine Cravings Prazosin HCl (Prazosin Hcl 1 Mg Capsule) 3 mg PO BEDTIME RUSSELL; Protocol Last Admin: 01/15/23 21:39 Dose: 3 mg Prazosin HCl (Prazosin Hcl 5 Mg Capsule) 5 mg PO BEDTIME RUSSELL; Protocol Last Admin: 01/15/23 21:39 Dose: 5 mg Quetiapine Fumarate (Quetiapine Fumarate 400 Mg Tablet) 400 mg PO BEDTIME RUSSELL Last Admin: 01/15/23 21:40 Dose: 400 mg Senna (Sennosides 8.6 Mg Tablet) 8.6 mg PO BEDTIME RUSSELL Last Admin: 01/15/23 21:40 Dose: 8.6 mg Trazodone HCl (Trazodone Hcl 50 Mg Tablet) 50 mg PO BEDTIME MRX1 PRN PRN Reason: Insomnia Last Admin: 01/13/23 20:42 Dose: 50 mg Venlafaxine HCl (Venlafaxine Hcl Er 150 Mg Cap.Er.24h) 150 mg PO DAILY RUSSELL Last Admin: 01/16/23 09:08 Dose: 150 mg Allergies Allergies Allergy/AdvReac Type Severity Reaction Status Date / Time codeine Allergy RESTLESS Verified 01/12/23 21:47 LEG trazodone Allergy Hives Verified 01/12/23 21:47 Assessment & Plan Assessment & Plan (1) Depression with suicidal ideation: Status: Inactive Code(s): F32.A - Depression, unspecified; R45.851 - Suicidal ideations (2) PTSD (post-traumatic stress disorder): Status: Acute Code(s): F43.10 - Post-traumatic stress disorder, unspecified (3) Opioid use disorder: Status: Acute Code(s): F11.90 - Opioid use, unspecified, uncomplicated Plan Patient is a 32 year old male with hx of MDD, PTSD and polysubstance abuse who self presented to [facility] [place] [place] d/t suicidal ideation with plan to shoot himself or leap from overpass secondary to increased depressive symptoms. Plan: CV 15 minute safety checks Continue home medications Refer for outpatient therapy Possibly refer to [facility] 01/15: Pt reports his depression decreasing but anxiety remaining high. States he did not go to groups because they make him anxious; will attempt to attend 1 group today. Pt reports SI comes and goes throughout the day. Continue with current tx plan. 01/16: Pt feeling a bit better today. Denies SI, pt stated, I want to stay alive for my daughter and remain sober to get custody . Would like referral to [facility]. hospitality workers notified. Pt has an outpatient appointment at [facility] on Thursday. Plans on going to [facility] after discharge. Pt is requesting to be discharged Thursday morning to be able to attend appointment. If pt is able to remain in behavioral and safety control, pt will be discharged Thursday. Continue current tx plan. Patient educated on: diagnosis, medication risk/benefits, substance abuse and therapeutic strategies Informed Consent: understands Reason for continued inpatient stay Substantial Risk for: harm to self and med/psych decompensation Time Spent With Patient Time: Total time managing care of this patient today _30___ minutes.
[2023-01-16] MEDS: hydrOXYzine HCL 50 MG TABLET PO (14:52)
[2023-01-16 20:30] VITALS: BP 115/70; PULSE 64; RESP 16; TEMP 36.4; O2SAT 95
[2023-01-16] MEDS: QUEtiapine Fumarate 400 MG TABLET PO (20:32)
[2023-01-16] MEDS: Melatonin 3 MG TABLET PO (20:33)
[2023-01-16] MEDS: Prazosin HCL 5 MG CAPSULE PO (20:33)
[2023-01-16] MEDS: Sennosides 8.6 MG TABLET PO (20:34)
[2023-01-16] MEDS: Prazosin HCL 1 MG CAPSULE 3 MG PO (20:34)
[2023-01-16] MEDS: Docusate Sodium 100 MG CAPSULE PO (20:34)
[2023-01-16] MEDS: cloNIDine HCL 0.1 MG TABLET PO (20:34)
[2023-01-17] MEDS: clonazePAM 0.5 MG TABLET PO ×3 (08:43→20:20)
[2023-01-17] MEDS: methADONE HCl 20 MG/2 ML ORAL.CONC 175 MG PO (08:43)
[2023-01-17] MEDS: Nicotine 21 MG PATCH.TD24 TRANSDERMA (08:43)
[2023-01-17] MEDS: Venlafaxine HCl ER 150 MG CAP.ER.24H PO (08:43)
[2023-01-17 09:13] VITALS: BP 113/75; PULSE 67; RESP 18; TEMP 36.4; O2SAT 96
--- NOTE | 2023-01-17 13:32 | HO.PSYCHPN ---
Subjective Subjective Date of Service: 01/17/23 Reason For Visit: SI Subjective Notes: Conditional Voluntary Healthcare Proxy: No Guardianship: No Medical Problems Affecting Mental Status: No Interim History: Patient was seen and discussed in rounds today. Records and plans were reviewed. He continues to be somewhat improved but still isolative. No hallucinations. No SI. He is complaining of severe constipation. Mag citrate is unavailable so I will order lactulose. No other changes were made today Review of Systems Review of Systems Constipation Yes all other systems are reviewed and are negative Mental Status Exam Mental Status Exam Narrative: In today's visit he is alert, oriented and pleasant. Normal speech. Good eye contact. Affect is appropriate and varied in. Moderate dysphoria present. No signs of psychosis. No SI. Cognitively intact. Judgment is intact Diagnostics Vital Signs (24Hr): Vital Signs - 24 hr 01/16/23 20:30 01/17/23 09:13 Temperature 97.6 F 97.5 F Pulse Rate 64 67 Respiratory Rate 16 18 Blood Pressure 115/70 113/75 Pulse Oximetry 95 96 Oxygen Delivery Method Room Air Room Air BMI result Body Mass Index 25.4 Labs 01/12/23 22:16 01/14/23 10:19 Medications Medications Current Medications Acetaminophen (Acetaminophen 325 Mg Tablet) 650 mg PO Q6H PRN PRN Reason: Headache/Pain Mild Scale (1-3) Last Admin: 01/15/23 15:23 Dose: 650 mg Al Hydroxide/Mg Hydroxide (Magnesium Hydrox/Alum Hydrox 30 Ml Oral.Susp) 30 ml PO Q6H PRN PRN Reason: Heartburn/Nausea Clonazepam (Clonazepam 0.5 Mg Tablet) 0.5 mg PO TID RUSSELL Last Admin: 01/17/23 08:43 Dose: 0.5 mg Clonidine HCl (Clonidine Hcl 0.1 Mg Tablet) 0.1 mg PO BEDTIME RUSSELL; Protocol Last Admin: 01/16/23 20:34 Dose: 0.1 mg Docusate Sodium (Docusate Sodium 100 Mg Capsule) 100 mg PO BEDTIME RUSSELL Last Admin: 01/16/23 20:34 Dose: 100 mg Hydroxyzine HCl (Hydroxyzine Hcl 50 Mg Tablet) 50 mg PO TID PRN PRN Reason: Anxiety Last Admin: 01/16/23 14:52 Dose: 50 mg Magnesium Hydroxide (Milk Of Magnesia 30 Ml Oral.Susp) 30 ml PO DAILY PRN PRN Reason: Constipation Last Admin: 01/15/23 15:23 Dose: 30 ml Melatonin (Melatonin 3 Mg Tablet) 3 mg PO BEDTIME PRN PRN Reason: Insomnia Last Admin: 01/16/23 20:33 Dose: 3 mg Methadone HCl (Methadone Hcl 20 Mg/2 Ml Oral.Conc) 175 mg PO DAILY RUSSELL Last Admin: 01/17/23 08:43 Dose: 175 mg Nicotine (Nicotine 21 Mg Patch.Td24) 21 mg TRANSDERMA DAILY RUSSELL Last Admin: 01/17/23 08:43 Dose: 21 mg Nicotine Polacrilex (Nicotine Polacrilex 2 Mg Gum) 4 mg BUCCAL Q2H PRN PRN Reason: Nicotine Cravings Prazosin HCl (Prazosin Hcl 1 Mg Capsule) 3 mg PO BEDTIME RUSSELL; Protocol Last Admin: 01/16/23 20:34 Dose: 3 mg Prazosin HCl (Prazosin Hcl 5 Mg Capsule) 5 mg PO BEDTIME RUSSELL; Protocol Last Admin: 01/16/23 20:33 Dose: 5 mg Quetiapine Fumarate (Quetiapine Fumarate 400 Mg Tablet) 400 mg PO BEDTIME RUSSELL Last Admin: 01/16/23 20:32 Dose: 400 mg Senna (Sennosides 8.6 Mg Tablet) 8.6 mg PO BEDTIME RUSSELL Last Admin: 01/16/23 20:34 Dose: 8.6 mg Trazodone HCl (Trazodone Hcl 50 Mg Tablet) 50 mg PO BEDTIME MRX1 PRN PRN Reason: Insomnia Last Admin: 01/13/23 20:42 Dose: 50 mg Venlafaxine HCl (Venlafaxine Hcl Er 150 Mg Cap.Er.24h) 150 mg PO DAILY RUSSELL Last Admin: 01/17/23 08:43 Dose: 150 mg Allergies Allergies Allergy/AdvReac Type Severity Reaction Status Date / Time codeine Allergy RESTLESS Verified 01/12/23 21:47 LEG trazodone Allergy Hives Verified 01/12/23 21:47 Assessment & Plan Assessment & Plan (1) Depression with suicidal ideation: Status: Inactive Code(s): F32.A - Depression, unspecified; R45.851 - Suicidal ideations (2) PTSD (post-traumatic stress disorder): Status: Acute Code(s): F43.10 - Post-traumatic stress disorder, unspecified (3) Opioid use disorder: Status: Acute Code(s): F11.90 - Opioid use, unspecified, uncomplicated Plan Patient is a 32 year old male with hx of MDD, PTSD and polysubstance abuse who self presented to [facility] [place] ER d/t suicidal ideation with plan to shoot himself or leap from overpass secondary to increased depressive symptoms. Plan: CV 15 minute safety checks Continue home medications Refer for outpatient therapy Possibly refer to PHP 01/15: Pt reports his depression decreasing but anxiety remaining high. States he did not go to groups because they make him anxious; will attempt to attend 1 group today. Pt reports SI comes and goes throughout the day. Continue with current tx plan. 01/16: Pt feeling a bit better today. Denies SI, pt stated, I want to stay alive for my daughter and remain sober to get custody . Would like referral to [facility]. harness worker notified. Pt has an outpatient appointment at [facility] on Thursday. Plans on going to [facility] after discharge. Pt is requesting to be discharged Thursday morning to be able to attend appointment. If pt is able to remain in behavioral and safety control, pt will be discharged Thursday. Continue current tx plan. 01/17: Continue current regimen and plans. Add lactulose Reason for continued inpatient stay Substantial Risk for: med/psych decompensation Time Spent With Patient Time: Total time managing care of this patient today ____ minutes.
[2023-01-17] MEDS: hydrOXYzine HCL 50 MG TABLET PO (14:38)
[2023-01-17] MEDS: Lactulose 20 GM/30 ML SOLUTION 30 GM PO ×2 (15:12→20:22)
[2023-01-17 20:00] VITALS: BP 116/72; PULSE 67; RESP 16; TEMP 36.4; O2SAT 96
[2023-01-17] MEDS: Docusate Sodium 100 MG CAPSULE PO (20:20)
[2023-01-17] MEDS: QUEtiapine Fumarate 400 MG TABLET PO (20:20)
[2023-01-17] MEDS: Melatonin 3 MG TABLET PO (20:21)
[2023-01-17] MEDS: cloNIDine HCL 0.1 MG TABLET PO (20:21)
[2023-01-17] MEDS: Sennosides 8.6 MG TABLET PO (20:21)
[2023-01-17] MEDS: Prazosin HCL 5 MG CAPSULE PO (20:21)
[2023-01-17] MEDS: Prazosin HCL 1 MG CAPSULE 3 MG PO (20:22)
[2023-01-18] MEDS: Lactulose 20 GM/30 ML SOLUTION 30 GM PO (08:50)
[2023-01-18] MEDS: Venlafaxine HCl ER 150 MG CAP.ER.24H PO (08:50)
[2023-01-18] MEDS: Nicotine 21 MG PATCH.TD24 TRANSDERMA (08:50)
[2023-01-18] MEDS: methADONE HCl 20 MG/2 ML ORAL.CONC 175 MG PO (08:52)
[2023-01-18 10:07] VITALS: BP 109/60; PULSE 101; RESP 20; TEMP 36.4; O2SAT 93
[2023-01-18] MEDS: clonazePAM 0.5 MG TABLET PO ×3 (10:19→20:51)
--- NOTE | 2023-01-18 11:22 | HO.PSYCHPN ---
Subjective Subjective Date of Service: 01/18/23 Reason For Visit: SI Subjective Notes: Conditional Voluntary Healthcare Proxy: No Guardianship: No Medical Problems Affecting Mental Status: No Interim History: Patient was seen and discussed in rounds today. Records and plans were reviewed. He has been stable and is doing better. He did have a bowel movement and I will keep him on the lactulose for now. He is less depressed. He does have limited one-to-one interactions. Sleeping mostly adequately. No changes were made today Medication Compliance: Yes Side effects from medications: No Attending Groups: Yes Review of Systems Review of Systems Yes all other systems are reviewed and are negative Mental Status Exam Mental Status Exam Narrative: In today's visit he is alert, oriented and pleasant. Normal speech. Good eye contact. Affect is appropriate and varied in. Moderate dysphoria present. No signs of psychosis. No SI. Cognitively intact. Judgment is intact Diagnostics Vital Signs (24Hr): Vital Signs - 24 hr 01/17/23 20:00 01/18/23 10:07 Temperature 97.6 F 97.5 F Pulse Rate 67 101 H Respiratory Rate 16 20 Blood Pressure 116/72 109/60 Pulse Oximetry 96 93 Oxygen Delivery Method Room Air Room Air BMI result Body Mass Index 25.4 Labs 01/12/23 22:16 01/14/23 10:19 Medications Medications Current Medications Acetaminophen (Acetaminophen 325 Mg Tablet) 650 mg PO Q6H PRN PRN Reason: Headache/Pain Mild Scale (1-3) Last Admin: 01/15/23 15:23 Dose: 650 mg Al Hydroxide/Mg Hydroxide (Magnesium Hydrox/Alum Hydrox 30 Ml Oral.Susp) 30 ml PO Q6H PRN PRN Reason: Heartburn/Nausea Clonazepam (Clonazepam 0.5 Mg Tablet) 0.5 mg PO TID RUSSELL Clonidine HCl (Clonidine Hcl 0.1 Mg Tablet) 0.1 mg PO BEDTIME RUSSELL; Protocol Last Admin: 01/17/23 20:21 Dose: 0.1 mg Docusate Sodium (Docusate Sodium 100 Mg Capsule) 100 mg PO BEDTIME RUSSELL Last Admin: 01/17/23 20:20 Dose: 100 mg Hydroxyzine HCl (Hydroxyzine Hcl 50 Mg Tablet) 50 mg PO TID PRN PRN Reason: Anxiety Last Admin: 01/17/23 14:38 Dose: 50 mg Lactulose (Lactulose 20 Gm/30 Ml Solution) 30 gm PO BID RUSSELL Last Admin: 01/18/23 08:50 Dose: 30 gm Magnesium Hydroxide (Milk Of Magnesia 30 Ml Oral.Susp) 30 ml PO DAILY PRN PRN Reason: Constipation Last Admin: 01/15/23 15:23 Dose: 30 ml Melatonin (Melatonin 3 Mg Tablet) 3 mg PO BEDTIME PRN PRN Reason: Insomnia Last Admin: 01/17/23 20:21 Dose: 3 mg Methadone HCl (Methadone Hcl 20 Mg/2 Ml Oral.Conc) 175 mg PO DAILY RUSSELL Last Admin: 01/18/23 08:52 Dose: 175 mg Nicotine (Nicotine 21 Mg Patch.Td24) 21 mg TRANSDERMA DAILY RUSSELL Last Admin: 01/18/23 08:50 Dose: 21 mg Nicotine Polacrilex (Nicotine Polacrilex 2 Mg Gum) 4 mg BUCCAL Q2H PRN PRN Reason: Nicotine Cravings Prazosin HCl (Prazosin Hcl 1 Mg Capsule) 3 mg PO BEDTIME RUSSELL; Protocol Last Admin: 01/17/23 20:22 Dose: 3 mg Prazosin HCl (Prazosin Hcl 5 Mg Capsule) 5 mg PO BEDTIME RUSSELL; Protocol Last Admin: 01/17/23 20:21 Dose: 5 mg Quetiapine Fumarate (Quetiapine Fumarate 400 Mg Tablet) 400 mg PO BEDTIME RUSSELL Last Admin: 01/17/23 20:20 Dose: 400 mg Senna (Sennosides 8.6 Mg Tablet) 8.6 mg PO BEDTIME RUSSELL Last Admin: 01/17/23 20:21 Dose: 8.6 mg Trazodone HCl (Trazodone Hcl 50 Mg Tablet) 50 mg PO BEDTIME MRX1 PRN PRN Reason: Insomnia Last Admin: 01/13/23 20:42 Dose: 50 mg Venlafaxine HCl (Venlafaxine Hcl Er 150 Mg Cap.Er.24h) 150 mg PO DAILY RUSSELL Last Admin: 01/18/23 08:50 Dose: 150 mg Allergies Allergies Allergy/AdvReac Type Severity Reaction Status Date / Time codeine Allergy RESTLESS Verified 01/12/23 21:47 LEG trazodone Allergy Hives Verified 01/12/23 21:47 Assessment & Plan Assessment & Plan (1) Depression with suicidal ideation: Status: Inactive Code(s): F32.A - Depression, unspecified; R45.851 - Suicidal ideations (2) PTSD (post-traumatic stress disorder): Status: Acute Code(s): F43.10 - Post-traumatic stress disorder, unspecified (3) Opioid use disorder: Status: Acute Code(s): F11.90 - Opioid use, unspecified, uncomplicated Plan Patient is a 32 year old male with hx of MDD, PTSD and polysubstance abuse who self presented to [facility] [place] ER d/t suicidal ideation with plan to shoot himself or leap from overpass secondary to increased depressive symptoms. Plan: CV 15 minute safety checks Continue home medications Refer for outpatient therapy Possibly refer to PHP 01/15: Pt reports his depression decreasing but anxiety remaining high. States he did not go to groups because they make him anxious; will attempt to attend 1 group today. Pt reports SI comes and goes throughout the day. Continue with current tx plan. 01/16: Pt feeling a bit better today. Denies SI, pt stated, I want to stay alive for my daughter and remain sober to get custody . Would like referral to [facility]. final assembly worker notified. Pt has an outpatient appointment at [facility] on Thursday. Plans on going to [facility] after discharge. Pt is requesting to be discharged Thursday morning to be able to attend appointment. If pt is able to remain in behavioral and safety control, pt will be discharged Thursday. Continue current tx plan. 01/17: Continue current regimen and plans. Add lactulose 01/18: Continue current plans and regimen Reason for continued inpatient stay Substantial Risk for: med/psych decompensation Time Spent With Patient Time: Total time managing care of this patient today ____ minutes.
[2023-01-18 20:15] VITALS: BP 143/77; PULSE 70; RESP 18; TEMP 36.4; O2SAT 97
[2023-01-18] MEDS: Prazosin HCL 1 MG CAPSULE 3 MG PO (20:51)
[2023-01-18] MEDS: QUEtiapine Fumarate 400 MG TABLET PO (20:52)
[2023-01-18] MEDS: Prazosin HCL 5 MG CAPSULE PO (20:52)
[2023-01-18] MEDS: cloNIDine HCL 0.1 MG TABLET PO (20:52)
[2023-01-19] MEDS: Venlafaxine HCl ER 150 MG CAP.ER.24H PO (08:23)
[2023-01-19] MEDS: clonazePAM 0.5 MG TABLET PO (08:23)
[2023-01-19] MEDS: Nicotine 21 MG PATCH.TD24 TRANSDERMA (08:24)
[2023-01-19] MEDS: methADONE HCl 20 MG/2 ML ORAL.CONC 175 MG PO (08:32)
--- NOTE | 2023-01-19 08:36 | PM.PSYDC ---
DS: Providers Provider Date of Service: 01/19/23 Date of admission: 01/13/23 14:32 Date of discharge: 01/19/23 Primary care physician: Unknown Physician Admitting clinician: Estefani Story Attending physician on admission: Jamie Mullins Attending physician on discharge: Jamie Mullins Discharging clinician: Estefani Story DS: Diagnosis Discharge Diagnosis (1) Depression with suicidal ideation: Status: Inactive (2) PTSD (post-traumatic stress disorder): Status: Acute (3) Opioid use disorder: Status: Acute DS: Medications Discharge Medications Home Medications: Home Medications Medication Instructions Recorded Confirmed clonazepam 0.5 mg tablet 0.5 mg PO TID 01/12/23 01/12/23 clonidine HCl 0.1 mg tablet 0.1 mg PO BEDTIME 01/12/23 01/12/23 hydroxyzine pamoate 50 mg capsule 50 mg PO TID PRN Anxiety 01/12/23 01/12/23 melatonin 3 mg tablet 3 mg PO BEDTIME PRN Insomnia 01/12/23 01/12/23 prazosin 2 mg capsule 8 mg PO BEDTIME 01/12/23 01/12/23 quetiapine 400 mg tablet 400 mg PO BEDTIME 01/12/23 01/12/23 venlafaxine 150 mg 150 mg PO DAILY 01/12/23 01/12/23 capsule,extended release 24 hr Mental Status Exam Mental Status Exam Narrative: Pt is alert and oriented; behavior is cooperative, friendly and calm; patient is not in distress; dressed in casual attire; mood is described as good ; eye contact appropriate; Speech is normal rate, volume and prosody and not pressured; no psychomotor agitation/retardation present; thought process is organized and goal directed; Thought content is on tx; otherwise pertinent to relevant topics and without any delusional content, paranoid ideations or grandiosity; denies any SI/HI. There is no evidence of perceptual disturbance. Patients insight and judgment are fair. Data Data Completed and Pending Completed studies during hospitalization [Text1]: 01/12/23 01/12/23 01/12/23 22:16 22:16 22:34 WBC 6.3 RBC 4.50 L Hgb 13.0 L Hct 38.9 L MCV 86.4 MCH 28.9 MCHC 33.4 RDW 12.9 Plt Count 227 MPV 9.2 L Immature Gran % (Auto) 0.5 H Neut % (Auto) 52.6 Lymph % (Auto) 34.4 [place] % (Auto) 9.9 Eos % (Auto) 2.1 Baso % (Auto) 0.5 Lymph # (Auto) 2.2 [place] # (Auto) 0.6 Eos # (Auto) 0.1 Baso # (Auto) 0.0 Abs Immat Gran (auto) 0.03 Absolute Neuts (auto) 3.3 Absolute Nucleated RBC 0.000 Nucleated RBC % (auto) 0.0 Sodium 137 Potassium 3.6 Chloride 99 Carbon Dioxide 28 Anion Gap 14 BUN 13 Creatinine 0.91 Estim Creat Clear Calc 150.6 Estimated GFR > 60 Random Glucose 116 H Fasting Glucose Estimat Average Glucose Hemoglobin A1c % Calcium 9.8 Total Bilirubin 0.4 AST 155 H ALT 435 H Alkaline Phosphatase 115 Total Protein 8.0 Albumin 4.4 Triglycerides Cholesterol LDL Cholesterol, Calc HDL Cholesterol Vitamin B12 Folate TSH Free T4 Urine Color Urine Appearance Urine pH Ur Specific [place] Urine Protein Urine Glucose (UA) Urine Ketones Urine Blood Urine Nitrite Ur Leukocyte Esterase Urine RBC Urine WBC Ur Squamous Epith Cells Urine Bacteria Hyaline Casts Urine Opiates Screen Not Detected Urine Fentanyl Screen POSITIVE H Ur Barbiturates Screen Not Detected Ur Phencyclidine Scrn Not Detected Ur Amphetamines Screen Not Detected U Benzodiazepines Scrn Not Detected Urine Cocaine Screen Not Detected U Marijuana (THC) Screen POSITIVE H Ethyl Alcohol < 10 COVID-19 ([facility]) COVID-19 Clin Com 01/12/23 01/13/23 01/14/23 22:34 11:43 10:19 WBC RBC Hgb Hct MCV MCH MCHC RDW Plt Count MPV Immature Gran % (Auto) Neut % (Auto) Lymph % (Auto) [place] % (Auto) Eos % (Auto) Baso % (Auto) Lymph # (Auto) [place] # (Auto) Eos # (Auto) Baso # (Auto) Abs Immat Gran (auto) Absolute Neuts (auto) Absolute Nucleated RBC Nucleated RBC % (auto) Sodium 138 Potassium 4.3 Chloride 101 Carbon Dioxide 28 Anion Gap 13 BUN 12 Creatinine 0.87 Estim Creat Clear Calc 157.5 Estimated GFR > 60 Random Glucose Fasting Glucose 92 Estimat Average Glucose Hemoglobin A1c % Calcium 9.7 Total Bilirubin 0.6 AST 111 H ALT 330 H Alkaline Phosphatase 112 Total Protein 8.0 Albumin 4.3 Triglycerides 320 Cholesterol 165 LDL Cholesterol, Calc 63 HDL Cholesterol 38 Vitamin B12 Folate TSH 1.45 Free T4 0.67 L Urine Color Yellow Urine Appearance Clear Urine pH 5.5 Ur Specific [place] 1.015 Urine Protein Negative Urine Glucose (UA) Negative Urine Ketones Negative Urine Blood Negative Urine Nitrite Negative Ur Leukocyte Esterase Trace H Urine RBC 0-2 Urine WBC 0-5 Ur Squamous Epith Cells 0-2 Urine Bacteria None Seen Hyaline Casts 0-2 Urine Opiates Screen Urine Fentanyl Screen Ur Barbiturates Screen Ur Phencyclidine Scrn Ur Amphetamines Screen U Benzodiazepines Scrn Urine Cocaine Screen U Marijuana (THC) Screen Ethyl Alcohol COVID-19 ([facility]) Negative COVID-19 Clin Com See Note 01/14/23 01/14/23 10:19 10:19 WBC RBC Hgb Hct MCV MCH MCHC RDW Plt Count MPV Immature Gran % (Auto) Neut % (Auto) Lymph % (Auto) [place] % (Auto) Eos % (Auto) Baso % (Auto) Lymph # (Auto) [place] # (Auto) Eos # (Auto) Baso # (Auto) Abs Immat Gran (auto) Absolute Neuts (auto) Absolute Nucleated RBC Nucleated RBC % (auto) Sodium Potassium Chloride Carbon Dioxide Anion Gap BUN Creatinine Estim Creat Clear Calc Estimated GFR Random Glucose Fasting Glucose Estimat Average Glucose 91 Hemoglobin A1c % 4.8 Calcium Total Bilirubin AST ALT Alkaline Phosphatase Total Protein Albumin Triglycerides Cholesterol LDL Cholesterol, Calc HDL Cholesterol Vitamin B12 355 Folate 14.7 TSH Free T4 Urine Color Urine Appearance Urine pH Ur Specific [place] Urine Protein Urine Glucose (UA) Urine Ketones Urine Blood Urine Nitrite Ur Leukocyte Esterase Urine RBC Urine WBC Ur Squamous Epith Cells Urine Bacteria Hyaline Casts Urine Opiates Screen Urine Fentanyl Screen Ur Barbiturates Screen Ur Phencyclidine Scrn Ur Amphetamines Screen U Benzodiazepines Scrn Urine Cocaine Screen U Marijuana (THC) Screen Ethyl Alcohol COVID-19 ([facility]) COVID-19 Clin Com DS: Summary Hospital Course Hospital Course: Patient is a 32 year old male with hx of MDD, PTSD and polysubstance abuse who self presented to [facility] [place] [facility] d/t suicidal ideation with plan to shoot himself or leap from overpass secondary to increased depressive symptoms. Per crisis report, patient was admitted to [facility] a couple of days ago but asked to be discharged as he believed they were not helping him. During admission assessment patient presents as calm, cooperative and pleasant. Patient reports increased in depressive symptoms and suicidal ideation to walk into traffic or borrow a gun from his friend and shoot myself . Pt stated, I'm depressed because I can't see my daughter and I haven't seen my grandmother because I don't want her to see me like this and worry . Patient reports feeling safe on the unit. Patient stated he has been going from psych tanner to psych tanner for the past 4 months . Patient reports he has not been using substances for the past 4 months, however, his UTOX was positive for fentanyl and marijuana. During hospital stay, Pt reports his depression decreasing but anxiety remaining high. States he did not go to groups because they make him anxious; will attempt to attend 1 group today. Pt reports SI comes and goes throughout the day. Pt mood improved after a few days. Denies SI, pt stated, I want to stay alive for my daughter and remain sober to get custody . Would like referral to [facility]. cheese factory worker notified. Pt has an outpatient appointment at [facility] on Thursday. Plans on going to [facility] after discharge. Pt is requesting to be discharged Thursday morning to be able to attend appointment. On discharge patient denies SI, future oriented, states he is in a better mood . Pt reports looking forward to outpatient appointment and plans on continuing sobriety. Time spent discussing smoking cessation with patient: 3 to 10 minutes Status at Discharge Cognitive/behavioral status at discharge: Patient was interviewed prior to discharge and found to be fully oriented and without any SI or HI. Patient has insight and demonstrates good judgment in terms of wanting to pursue treatment. Patient is not in imminent risk of harm to self or others and has a safety plan that includes presenting to the closest ER or calling 911 if feeling unsafe. Patient has been observed closely by nursing and unit staff throughout admission; patient has not engaged in any behaviors that suggest dangerousness to self or others and has demonstrated appropriate behaviors and impulse control. Functional status at discharge: independent ambulation Overall status at discharge: patient is back to baseline Time Spent with Patient Time attestation: Total time managing care of this patient today _30___ minutes. Time spent: Less than 30 minutes Discharge Plan Discharge Anticipated Discharge Date/Time: 01/19/23 09:00 Patient Disposition: [facility] Discharge Diagnosis: MDD, PTSD, Opioid use D/O Referrals: Mary Thompson (Psychiatry) [Other] - 01/19/23 10:00 am (IN OFFICE APPOINTMENT) Partial Hospitalization Program (PHP) [Other] - 1 Week (You have been referred to the partial program through [facility]. Please reach out to them at the phone number listed above for an intake appointment) Physician,Unknown J [Primary Care Provider] - 1 Week Discharge Medications: Continued prazosin 2 mg Capsule 8 mg PO BEDTIME hydroxyzine pamoate 50 mg Capsule 50 mg PO TID PRN (Reason: Anxiety) melatonin 3 mg Tablet 3 mg PO BEDTIME PRN (Reason: Insomnia) clonidine HCl 0.1 mg Tablet 0.1 mg PO BEDTIME clonazepam 0.5 mg tablet 0.5 mg PO TID venlafaxine 150 mg Capsule,Extended Release 24hr 150 mg PO DAILY quetiapine 400 mg Tablet 400 mg PO BEDTIME Discontinued nicotine 21 mg/24 hr Patch 24 Hour 21 mg transdermal DAILY 28 Days Qty: 28 0RF Discharge Orders: Discharge Order (Routine); Ordered 01/19/23 Ordered By: Estefani Story Diet: Regular diet Activity on Discharge: As tolerated Stand Alone Forms: Patient Portal Discharge page, Community Support Care Plan Goals: Maintain mood and safe behaviors Take medications as prescribed Continue to pursue sobriety Practice coping skills Continue with outpatient providers and reach out to them as needed Health Concerns: Mood stability and behaviors Sobriety Plan of Treatment: Follow up with your PCP, psychiatric provider and other outpatient providers regarding above concerns Take medications as prescribed Assessment: Patient was interviewed prior to discharge and found to be fully oriented and without any SI or HI. Patient has insight and demonstrates good judgment in terms of wanting to pursue treatment. Patient is not in imminent risk of harm to self or others and has a safety plan that includes presenting to the closest ER or calling 911 if feeling unsafe. Patient has been observed closely by nursing and unit staff throughout admission; patient has not engaged in any behaviors that suggest dangerousness to self or others and has demonstrated appropriate behaviors and impulse control. Discharge Date/Time: 01/19/23 09:28
[2023-01-19] MEDS: Naloxone HCl Nasal TAKE HOME 4 MG SPRAY 8 MG NOSTRILALT (08:41)
--- NOTE | 2023-01-23 23:16 | PC.NURSE ---
This writer editor created a medication error on this patient on 01/18/23. Clonazapam 0.5 mg was ordered. I mistakenly read the order as 0.25mg. I wasted 0.25mg and administered 0.25mg.
== END 2023-01-19 09:28 | disposition home or self-care (01) | DRG 754 ==
LOC: HO.ED 01-13 13:36 → HO.PADLT16 01-13 14:47
PROVIDERS: Internal Medicine; Admitting Provider Psychiatry & Neurology Psychiatry; Emergency Provider Emergency Medicine; Responsible Provider Registered Nurse; Visit Provider Psychiatry & Neurology Psychiatry
DX: F32.9 Major depressive disorder, single episode, unspecified (principal); R45.851 Suicidal ideations; F19.10 Other psychoactive substance abuse, uncomplicated; F11.10 Opioid abuse, uncomplicated; Z20.822 Contact with and (suspected) exposure to COVID-19; Z79.899 Other long term (current) drug therapy
CPT/HCPCS: 36415; 80053; 80061; 80307; 81001; 82607; 82746; 83036; 84439; 84443; 85025; 87635; 99285; S9485

== ENCOUNTER → 2023-01-13 14:32 | Outpatient (BNV) | payer OTHER, SELFPAY | PROVIDERS: Admitting Provider Psychiatry & Neurology Psychiatry; Emergency Provider Emergency Medicine; Responsible Provider Registered Nurse; Visit Provider Registered Nurse | DX: F33.2 Major depressive disorder, recurrent severe without psychotic features (principal); R45.851 Suicidal ideations; F43.11 Post-traumatic stress disorder, acute; F11.90 Opioid use, unspecified, uncomplicated | CPT/HCPCS: 90792; 99231; 99238 ==

== ENCOUNTER 2023-03-16 13:46 | Emergency (ER) | payer OTHER, SELFPAY ==
--- NOTE | 2023-03-16 14:08 | ED.GENADULT ---
HPI - General Adult General Chief complaint: Psychiatric Symptoms Stated complaint: si crisis Time Seen by Provider: 03/16/23 14:33 Source: patient Mode of arrival: ambulatory Limitations: no limitations History of Present Illness HPI narrative: Patient comes to the emergency room complaining of suicidal ideation, depression. Patient states he has not had any drugs or alcohol. Patient does have the recurrent thought of overdosing with street drugs. Related Data Home Medications Medication Instructions Recorded Confirmed hydroxyzine pamoate 50 mg capsule 50 mg PO TID PRN Anxiety 01/12/23 03/16/23 melatonin 3 mg tablet 6 mg PO BEDTIME PRN Insomnia 01/12/23 03/16/23 prazosin 2 mg capsule 2 mg PO BEDTIME 01/12/23 03/16/23 quetiapine 400 mg tablet 400 mg PO BEDTIME 01/12/23 03/16/23 venlafaxine 150 mg 150 mg PO DAILY 01/12/23 03/16/23 capsule,extended release 24 hr clonazepam 2 mg tablet 2 mg PO TID PRN Anxiety 03/16/23 03/16/23 clonidine HCl 0.2 mg tablet 0.2 mg PO BEDTIME 03/16/23 03/16/23 prazosin 5 mg capsule (Minipress) 10 mg PO BEDTIME insomnia 03/16/23 03/16/23 quetiapine 100 mg tablet 100 mg PO BID 03/16/23 03/16/23 venlafaxine 75 mg capsule,extended 75 mg PO DAILY 03/16/23 03/16/23 release 24 hr Allergies Allergy/AdvReac Type Severity Reaction Status Date / Time codeine Allergy RESTLESS Verified 01/12/23 21:47 LEG trazodone Allergy Hives Verified 01/12/23 21:47 Review of Systems Review of Systems: Constitutional : No Weight loss, No Fever, No Chills, No Night Sweats, No Fatigue, No Malaise ENT/Mouth : No Hearing loss, No Ear Pain, No Nasal Congestion, No Sinus Pain, No Hoarseness, No sore throat, No Rhinorrhea, No Swallowing Difficulty Eyes: No Eye Pain, No Swelling, No Redness, No Foreign Body, No Discharge, No Vision Changes Cardiovascular : No Chest Pain, No SOB, No Dyspnea on Exertion, No Orthopnea, No Edema, No Palpitations Respiratory : No Cough, No Sputum, No Wheezing, No Smoke Exposure, No Dyspnea Gastrointestinal : No Nausea, No Vomiting, No Diarrhea, No Constipation, No abdominal Pain, No Hematochezia, No Melena Genitourinary : no irregular bleeding, No Dysuria, No Urinary Frequency, No Hematuria, No Urinary Incontinence, No Urgency, No Flank Pain, No Urinary Flow Changes, No Hesitancy Musculoskeletal : No joint pain, No Myalgias, No Joint Swelling Skin : No Skin Lesions, No rash Neuro : No Weakness, No Numbness, No Paresthesias, No Loss of Consciousness, No Dizziness, No Headache Psych : No Anxiety/Panic, No Depression, complaining of SI , no HI Heme/Lymph: No Bruising, No Bleeding,No Lymphadenopathy Endocrine : No Polyuria, No Polydipsia, No Temperature Intolerance [facility] Past Medical History Medical History Chronic schizophrenia Depression with suicidal ideation Bipolar disorder Social History Social History Household Members: None Housing: Homeless Do you presently have visiting nurse or other home services: No Unable to assess alcohol history related to: Unknown Patient Tobacco Use Status: Never used Tobacco Tobacco use type: Cigarette Cigarette Packs Per Day: 1.5 Cigarettes Per Day: 30.0 Years Smoked: over 10 e-Cigarette/Vaping Use: Never Used Second Hand Smoke Exposure: Yes Substance Use Type: Club/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 Oriented X3. No acute distress. Eyes: Pupils equal, round and reactive to light. ENT: Pharynx normal. Neck: Normal inspection. Neck supple. No lymph nodes noted. No crepitus CVS: Normal heart rate and rhythm. Pulses normal. Normal S1 and S2 Respiratory: No respiratory distress. Breath sounds normal. No Wheezing. No rales Abdomen: Soft and nontender. No rigidity. No distention. Skin: Skin warm and dry. Normal skin color. Normal skin turgor. Extremities: No lower extremity edema. No Lacerations. No Rash Neuro: Oriented X 3. No motor deficit. No sensory deficit. Moving all extremities. No slurred speech. CN 2 through 12 grossly intact Psych: calm, cooperative, normal affect Course Course Course Narrative: RME performed by Candie Shepherd PA-C. Patient is a 33 year old assigned male at presenting to the emergency department with suicidal ideation. Labs ordered. Patient placed back in the waiting room pending room availability and results. Medical Decision Making Medical Decision Making [facility] Narrative: -patient picked up all of his medications 5 days ago at the pharmacy. It was noted that all of the tablets of clonazepam are missing. Patient states that he put all of his clonazepam in his old bottles and is at his aunt's house in a safe. Patient states that last time that she went to crisis in [facility], they lost his backpack with all of his medications, he was able to replace all of his medications except the Klonopin and does not want to go through this again. Patient states that he did not overdose, and is taking his medications as prescribed. -all of patient's labs pending -care team consult pending -physician observation started at 14:45 -15:37, I was informed by the patient's nurse that the patient stated that the real reason he is here is because he missed his methadone dose. Patient's nurse confirm his dose, patient takes 175 mg, did miss his dose. Also, patient requested four turkey sandwiches Differential Diagnosis Differential Diagnoses: The differential diagnosis associated with the presentation includes (Anxiety, depression, substance abuse, missed methadone dose and wants it now) Admission/Observation Consideration of admission/observation: Escalation of care including admission/observation considered (Patient waiting to be seen by the care team and disposition) Lab Data 03/16/23 14:47 03/16/23 14:47 Labs: Lab Results 03/16/23 03/16/23 Range/Units 14:47 14:50 WBC 4.5 L (4.8-10.8) X10*3/uL RBC 4.30 L (4.60-5.80) X10*6/uL Hgb 12.7 L (14.0-18.0) g/dl Hct 37.8 L (42.0-52.0) % MCV 87.9 (80.0-98.0) fL MCH 29.5 (27.0-33.0) pg MCHC 33.6 (31.0-36.0) g/dl RDW 12.4 (11.0-16.0) % Plt Count 243 (160-400) X10*3/uL MPV 9.5 (9.4-12.4) fL Immature Gran % (Auto) 0.2 (0.0-0.4) % Neut % (Auto) 51.6 (45-73) % Lymph % (Auto) 35.7 (20-40) % [place] % (Auto) 8.5 (2-11) % Eos % (Auto) 3.6 (0-4) % Baso % (Auto) 0.4 (0-2) % Lymph # (Auto) 1.6 (1.2-4.9) X10*3/uL [place] # (Auto) 0.4 (0.1-1.2) X10*3/uL Eos # (Auto) 0.2 (0.0-0.4) X10*3/uL Baso # (Auto) 0.0 (0.0-0.2) X10*3/uL Abs Immat Gran (auto) 0.01 (0.00-0.03) X10*3/uL Absolute Neuts (auto) 2.3 (2.0-8.3) x10*3/uL Absolute Nucleated RBC 0.000 (0.0-0.012) X10*3/uL Nucleated RBC % (auto) 0.0 (0.0-0.2) /100WBC Sodium 139 (135-145) mmol/L Potassium 3.9 (3.3-5.1) mmol/L Chloride 106 (96-108) mmol/L Carbon Dioxide 24 (22-29) mmol/L Anion Gap 13 (12-20) BUN 7 L (9-16) mg/dL Creatinine 0.93 (0.5-1.4) mg/dL Estim Creat Clear Calc 146.0 Estimated GFR > 60 Random Glucose 149 H (60-115) mg/dL Calcium 9.0 D (8.4-10.2) mg/dL Total Bilirubin 0.3 (0.0-1.0) mg/dL AST 16 (5-37) U/L ALT 14 (0-40) U/L Alkaline Phosphatase 82 (39-117) U/L Total Protein 7.3 (6.5-8.0) g/dL Albumin 4.0 (3.5-5.0) g/dL Urine Color Yellow Urine Appearance Clear Urine pH 8.0 (5.0-9.0) Ur Specific [place] 1.015 (1.005-1.025) Urine Protein Negative (Neg-Trace) mg/dL Urine Glucose (UA) Negative (Negative) mg/dL Urine Ketones Negative (Negative) mg/dL Urine Blood Negative (Negative) Urine Nitrite Negative (Negative) Ur Leukocyte Esterase Negative (Negative) Salicylates < 5.0 L (15-30) mg/dL Urine Opiates Screen Not Detected (Not Detect) Urine Fentanyl Screen POSITIVE H (Not Detect) Acetaminophen < 17 (<30) mcg/mL Ur Barbiturates Screen Not Detected (Not Detect) Ur Phencyclidine Scrn Not Detected (Not Detect) Ur Amphetamines Screen Not Detected (Not Detect) U Benzodiazepines Scrn POSITIVE H (Not Detect) Urine Cocaine Screen POSITIVE H (Not Detect) U Marijuana (THC) Screen POSITIVE H (Not Detect) Ethyl Alcohol < 10 mg/dL COVID-19 ([facility]) Negative (Negative) COVID-19 Clin Com See Note Discharge Plan Discharge Clinical Impression: Suicidal ideation Patient Disposition: Still a Patient Prescriptions: No Action prazosin 2 mg Capsule 2 mg PO BEDTIME Rx Instructions: Take with 10mg for total dose of 12mg Prazosin at QHS hydroxyzine pamoate 50 mg Capsule 50 mg PO TID PRN (Reason: Anxiety) melatonin 3 mg Tablet 6 mg PO BEDTIME PRN (Reason: Insomnia) venlafaxine 150 mg Capsule,Extended Release 24hr 150 mg PO DAILY Rx Instructions: Take one capsule PO once daily with a 75mg for total dose 225mg quetiapine 400 mg Tablet 400 mg PO BEDTIME venlafaxine 75 mg capsule,extended release 24hr 75 mg PO DAILY Rx Instructions: Take one 75mg capsule with one 150mg capsule for a total dose of 225mg quetiapine 100 mg tablet 100 mg PO BID prazosin [Minipress] 5 mg capsule 10 mg PO BEDTIME Rx Instructions: Take two 5mg Capsules with a 2mg capsule for total dose 12mg at bedtime. clonidine HCl 0.2 mg tablet 0.2 mg PO BEDTIME clonazepam 2 mg tablet 2 mg PO TID PRN (Reason: Anxiety) Rx Instructions: Prescription filled on 03/10 for 90 Tablets. Bottle is empty upon arrival to hospital 03/16 Interventions: [place]-Suicide Risk Severity Scale Last Done: 03/16/23 14:56
[2023-03-16 14:09] VITALS: BP 108/70; PULSE 70; RESP 19; TEMP 36.6; O2SAT 95; BMI 26.6
--- NOTE | 2023-03-16 14:11 | ECG_ITS ---
Test Reason : QTC INTERVAL Blood Pressure : / mmHG Vent. Rate : 061 BPM Atrial Rate : 061 BPM P-R Int : 162 ms QRS Dur : 088 ms QT Int : 424 ms P-R-T Axes : 145 135 164 degrees QTc Int : 426 ms Suspect limb lead reversal, interpretation assumes no reversal Unusual P axis, possible ectopic atrial rhythm Lateral infarct , age undetermined Abnormal ECG When compared with ECG of 27-SEP-2022 09:46, Ectopic atrial rhythm has replaced Sinus rhythm Lateral infarct is now Present Nonspecific T wave abnormality now evident in Inferior leads T wave inversion now evident in Lateral leads Referred By: Candie Shepherd Electronically Signed By:PAO GARSIA
[2023-03-16 14:52] LABS: MANUAL DIFF FLAG NO
[2023-03-16 14:58] LABS: Basophils Percent Auto 0.4 % (0-2); Eosinophils Absolute Auto 0.2 X10*3/uL (0.0-0.4); Eosinophils Percent Auto 3.6 % (0-4); Hematocrit 37.8 % (42.0-52.0); Hemoglobin 12.7 g/dl (14.0-18.0); Imm Gran Abs Auto 0.01 X10*3/uL (0.00-0.03); Imm Gran Pct Auto 0.2 % (0.0-0.4); Lymphocytes Absolute Auto 1.6 X10*3/uL (1.2-4.9); Lymphocytes Percent Auto 35.7 % (20-40); Mean Corpuscular HGB Conc 33.6 g/dl (31.0-36.0); Mean Corpuscular Hemoglobin 29.5 pg (27.0-33.0); Mean Corpuscular Volume 87.9 fL (80.0-98.0); Mean Platelet Volume 9.5 fL (9.4-12.4); Monocytes Absolute Auto 0.4 X10*3/uL (0.1-1.2); Monocytes Percent Auto 8.5 % (2-11); Neutrophils Absolute Auto 2.3 x10*3/uL (2.0-8.3); Neutrophils Percent Auto 51.6 % (45-73); Platelet Count 243 X10*3/uL (160-400); Red Cell Distribution Width 12.4 % (11.0-16.0); White Blood Count 4.5 X10*3/uL (4.8-10.8)
[2023-03-16 15:07] LABS: COVID-19 Test Negative (Negative); IDNOW Serial# BCCEAD1C
[2023-03-16 15:08] LABS: Alanine Aminotransferase 14 U/L (0-40); Alkaline Phosphatase 82 U/L (39-117); Anion Gap 13 (12-20); Aspartate Amino Transferase 16 U/L (5-37); Bilirubin Total 0.3 mg/dL (0.0-1.0); Blood Urea Nitrogen 7 mg/dL (9-16); Carbon Dioxide 24 mmol/L (22-29); Chloride 106 mmol/L (96-108); Estimated Glomerular Filt Rate > 60; Ethanol < 10 mg/dL; Glucose Random 149 mg/dL (60-115); Potassium 3.9 mmol/L (3.3-5.1); Sodium 139 mmol/L (135-145); Total Protein 7.3 g/dL (6.5-8.0)
[2023-03-16 15:09] LABS: Acetaminophen LAB < 17 mcg/mL (<30); Salicylate < 5.0 mg/dL (15-30)
[2023-03-16 15:12] LABS: Appearance Urine Clear; Color Urine Yellow; Glucose Urine UA Negative (Negative); Leukocyte Esterase Urine Negative (Negative); Nitrite Urine Negative (Negative); Specific Gravity - Urine 1.015 (1.005-1.025); Urine Blood Negative (Negative); Urine Ketones Negative (Negative); Urine Protein Negative (Neg-Trace)
[2023-03-16 15:16] LABS: Amphetamine Screen Urine Not Detected (Not Detect); Barbiturates, Urine Not Detected (Not Detect); Benzodiazepines Screen Urine POSITIVE (Not Detect); Cannabinoid Screen Urine POSITIVE (Not Detect); Cocaine Screen Urine POSITIVE (Not Detect); Fentanyl, urine POSITIVE (Not Detect); Opiate Screen Urine Not Detected (Not Detect); Phencyclidine Screen Urine Not Detected (Not Detect)
--- NOTE | 2023-03-16 15:49 | HE.PHANOTE ---
RE: methadone Last dose verification from [address], 175mg on 03/15/23 @[id number]
[2023-03-16] MEDS: methADONE HCl 20 MG/2 ML ORAL.CONC 175 MG PO (15:53)
--- NOTE | 2023-03-16 17:30 | PC.NURSE ---
Harish arrived at the emergency dept as a walk in reporting increased depression and SI. Harish stated he had missed his methadone clinic today and asked to be dosed once he was settled in a bed. [facility] confirmed he last took 175mg on 03/15/23. Harish was given his dose today. Appetite excellent as Harish has had quite a few sandwiches and snacks since arriving he verbalized he has not had much to eat in a few days. Harish had a number of pill bottles in his belongings on admission all of them were mostly full as he had picked them up on 03/10. His Clonazepam bottle however was empty, he had just picked up 90 tablets and when asked reported he removed them from the bottle and put them at his aunts house to keep them safe . Harish has been watching TV resting in the back since arriving.
[2023-03-16 18:00] VITALS: BP 102/62; PULSE 51; RESP 14; TEMP 36.5; O2SAT 95
[2023-03-17 00:26] VITALS: BP 110/74; PULSE 74; RESP 16; TEMP 36.4; O2SAT 98
--- NOTE | 2023-03-17 06:15 | PC.NURSE ---
Patient slept through the night, no distress observed/reported, med rec completed/pending provider's approval, patient was assessed by care team disposition pending psych consult, labs completed/resulted, vss, will continue to monitor.
--- NOTE | 2023-03-17 08:12 | HE.PHANOTE ---
RE: METHADONE Patients methadone verification has been received, patients last dose was 175 [address] was 03/15/23 confirmed with joyce
[2023-03-17] MEDS: Venlafaxine HCl ER 150 MG CAP.ER.24H PO (08:20)
[2023-03-17] MEDS: QUEtiapine Fumarate 100 MG TABLET PO (08:36)
[2023-03-17] MEDS: Venlafaxine HCl ER 75 MG CAP.ER.24H PO (08:36)
[2023-03-17] MEDS: methADONE HCl 20 MG/2 ML ORAL.CONC 175 MG PO (08:36)
[2023-03-17] MEDS: clonazePAM 1 MG TABLET 2 MG PO (08:47)
--- NOTE | 2023-03-17 11:44 | MHC.CARE ---
Patient reevaluated by the CARE Team this morning and is cleared for discharge, see Patient Care for written assessment. Dr. Carlson in agreement with plan.
== END 2023-03-17 14:07 | disposition home or self-care (01) ==
PROVIDERS: Physician Assistant Medical; Emergency Provider Emergency Medicine
DX: R45.851 Suicidal ideations (principal); Z20.822 Contact with and (suspected) exposure to COVID-19; F32.A Depression, unspecified; F20.9 Schizophrenia, unspecified; F43.10 Post-traumatic stress disorder, unspecified; F41.1 Generalized anxiety disorder; F19.10 Other psychoactive substance abuse, uncomplicated; F17.210 Nicotine dependence, cigarettes, uncomplicated; F11.20 Opioid dependence, uncomplicated; Z79.899 Other long term (current) drug therapy
CPT/HCPCS: 80053; 80143; 80179; 80307; 81003; 85025; 87635; 93005; 99284; S9485

== ENCOUNTER 2023-04-01 15:45 | Emergency (ER) | payer OTHER, SELFPAY ==
[2023-04-01 15:51] VITALS: BP 110/73; PULSE 98; RESP 18; TEMP 36.7; O2SAT 97; BMI 26.6
--- NOTE | 2023-04-01 15:52 | ED_ITS ---
HPI - General Adult General Chief complaint: Psychiatric Symptoms Stated complaint: SI/ crisis Time Seen by Provider: 04/01/23 16:20 Source: patient Mode of arrival: ambulatory Limitations: no limitations History of Present Illness HPI narrative: Patient comes emergency room complaining of suicidal ideation, PTSD. Patient states that he did not harm himself in any way prior to arrival. However, patient states that he is hearing voices, patient states that he is hearing his younger self telling himself that he is a loser and should kill himself. Patient states that he considered jumping on owned of a train. Related Data Home Medications Medication Instructions Recorded Confirmed hydroxyzine pamoate 50 mg capsule 50 mg PO TID PRN Anxiety 01/12/23 04/01/23 melatonin 3 mg tablet 6 mg PO BEDTIME PRN Insomnia 01/12/23 04/01/23 prazosin 2 mg capsule 2 mg PO BEDTIME 01/12/23 04/01/23 quetiapine 400 mg tablet 400 mg PO BEDTIME 01/12/23 04/01/23 venlafaxine 150 mg 150 mg PO DAILY 01/12/23 04/01/23 capsule,extended release 24 hr clonazepam 2 mg tablet 2 mg PO TID PRN Anxiety 03/16/23 04/01/23 clonidine HCl 0.2 mg tablet 0.2 mg PO BEDTIME 03/16/23 04/01/23 methadone 10 mg/mL oral concentrate 175 mg PO DAILY 03/16/23 04/01/23 prazosin 5 mg capsule (Minipress) 10 mg PO BEDTIME insomnia 03/16/23 04/01/23 quetiapine 100 mg tablet 100 mg PO BID 03/16/23 04/01/23 venlafaxine 75 mg capsule,extended 75 mg PO DAILY 03/16/23 04/01/23 release 24 hr Allergies Allergy/AdvReac Type Severity Reaction Status Date / Time codeine Allergy RESTLESS Verified 01/12/23 21:47 LEG trazodone Allergy Hives Verified 01/12/23 21:47 Review of Systems 2 Review of Systems: Constitutional : No Weight loss, No Fever, No Chills, No Night Sweats, No Fatigue, No Malaise ENT/Mouth : No Hearing loss, No Ear Pain, No Nasal Congestion, No Sinus Pain, No Hoarseness, No sore throat, No Rhinorrhea, No Swallowing Difficulty Eyes: No Eye Pain, No Swelling, No Redness, No Foreign Body, No Discharge, No Vision Changes Cardiovascular : No Chest Pain, No SOB, No Dyspnea on Exertion, No Orthopnea, No Edema, No Palpitations Respiratory : No Cough, No Sputum, No Wheezing, No Smoke Exposure, No Dyspnea Gastrointestinal : No Nausea, No Vomiting, No Diarrhea, No Constipation, No abdominal Pain, No Hematochezia, No Melena Genitourinary : no irregular bleeding, No Dysuria, No Urinary Frequency, No Hematuria, No Urinary Incontinence, No Urgency, No Flank Pain, No Urinary Flow Changes, No Hesitancy Musculoskeletal : No joint pain, No Myalgias, No Joint Swelling Skin : No Skin Lesions, No rash Neuro : No Weakness, No Numbness, No Paresthesias, No Loss of Consciousness, No Dizziness, No Headache Psych : Complaining of anxiety, depression, SI, no HI Heme/Lymph: No Bruising, No Bleeding,No Lymphadenopathy Endocrine : No Polyuria, No Polydipsia, No Temperature Intolerance [facility] Past Medical History Medical History Chronic schizophrenia Depression with suicidal ideation Bipolar disorder Social History Social History Household Members: None Housing: Homeless Do you presently have visiting nurse or other home services: No Unable to assess alcohol history related to: Unknown Patient Tobacco Use Status: Never used Tobacco Tobacco use type: Cigarette Cigarette Packs Per Day: 1.5 Cigarettes Per Day: 30.0 Years Smoked: over 10 e-Cigarette/Vaping Use: Never Used Second Hand Smoke Exposure: Yes 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 Use 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 Advance Directives: No Advance Directives Information Provided: No Healthcare Proxy: No Guardian: No service: No Sexual orientation: Straight/Heterosexual Physical Exam ED Vital Signs: Vital Signs - 24 hr 04/01/23 15:51 04/01/23 18:22 04/02/23 03:26 Temperature 98.1 F 97.6 F Pulse Rate 98 104 H Respiratory Rate 18 18 17 Blood Pressure 110/73 119/91 H Pulse Oximetry 97 99 Oxygen Delivery Method Room Air Room Air 04/02/23 09:13 Temperature 97.4 F Pulse Rate 65 Respiratory Rate 16 Blood Pressure 121/76 Pulse Oximetry 97 Oxygen Delivery Method Room Air BMI result Body Mass Index 26.6 Const Other: -patient is on a Section 12 -care team consult pending -physician observation started at 16:40 Course Course Course Narrative: This is an RME: Additional HPI, ROS, PE not included below will be deferred to primary provider. This is a [id number]-male, with a hx of PTSD, FLORY, polysubstance abuse on methadone, and depression, presenting to the ER with complaints of suicidal ideations. Pt reporting plan to jump in front of a train. He states that has auditory hallucinations - stating that he is hearing his childhood self telling him that he is a loser and to kill himself. Pt calm, cooperative. Plan: Labs, UA, care team Reevaluation(s) Reevaluation #1: Patient has been evaluated by pre have all health team. Patient has been arranged to have a partial hospitalization program. He will be discharged at this time. Patient appears to be no threat to self or others at this time Medications Administered Generic Name Dose Route Start Last Admin Trade Name Freq PRN Reason Stop Dose Admin Clonazepam 2 mg 04/02/23 01:02 04/02/23 03:28 Clonazepam 1 Mg Tablet PO 2 mg TID PRN Administration Anxiety Clonidine HCl 0.2 mg 04/02/23 01:15 04/02/23 02:42 Clonidine Hcl 0.2 Mg Tablet PO Not Given BEDTIME RUSSELL Protocol Methadone HCl 175 mg 04/02/23 09:00 04/02/23 09:54 Methadone Hcl 20 Mg/2 Ml Oral.Conc PO 175 mg DAILY RUSSELL Administration Prazosin HCl 10 mg 04/02/23 01:15 04/02/23 02:42 Prazosin Hcl 5 Mg Capsule PO Not Given BEDTIME RUSSELL Protocol Prazosin HCl 2 mg 04/02/23 01:15 04/02/23 02:42 Prazosin Hcl 1 Mg Capsule PO Not Given BEDTIME RUSSELL Protocol Quetiapine Fumarate 100 mg 04/02/23 09:00 04/02/23 09:55 Quetiapine Fumarate 100 Mg Tablet PO 100 mg BID@0900,1500 RUSSELL Administration Quetiapine Fumarate 400 mg 04/02/23 01:15 04/02/23 02:42 Quetiapine Fumarate 400 Mg Tablet PO Not Given BEDTIME RUSSELL Venlafaxine HCl 75 mg 04/02/23 09:00 04/02/23 09:55 Venlafaxine Hcl Er 75 Mg Cap.Er.24h PO 75 mg DAILY RUSSELL Administration Venlafaxine HCl 150 mg 04/02/23 09:00 04/02/23 09:55 Venlafaxine Hcl Er 150 Mg Cap.Er.24h PO 150 mg DAILY RUSSELL Administration Medical Decision Making Medical Decision Making [facility] Narrative: -my interpretation of labs: Mental a gin chemistry at baseline, negative for UTI, urine toxicology positive for fentanyl cocaine and marijuana -patient is on a Section 12, care team consult pending -20:09: Patient was evaluated by the care team. Patient is low risk for SI. Plan: In the morning referral for partial hospitalization. Patient will spend the night in the emergency room. Initially, a Section 12 was started. Per care team, they feel comfortable removing the Section 12, patient likely to stay, if patient decides to leave, he may do so. Differential Diagnosis Differential Diagnoses: The differential diagnosis associated with the presentation includes (Anxiety, depression, schizophrenia) Admission/Observation Consideration of admission/observation: Escalation of care including admission/observation considered (Patient is on a Section 12, patient waiting to be seen by the care team, disposition to be determined by the care team) Lab Data 04/01/23 16:10 04/01/23 16:10 Labs: Lab Results 04/01/23 Range/Units 16:10 WBC 5.1 (4.8-10.8) X10*3/uL RBC 4.62 (4.60-5.80) X10*6/uL Hgb 13.3 L (14.0-18.0) g/dl Hct 39.8 L (42.0-52.0) % MCV 86.1 (80.0-98.0) fL MCH 28.8 (27.0-33.0) pg MCHC 33.4 (31.0-36.0) g/dl RDW 12.3 (11.0-16.0) % Plt Count 253 (160-400) X10*3/uL MPV 9.1 L (9.4-12.4) fL Immature Gran % (Auto) 0.2 (0.0-0.4) % Neut % (Auto) 45.5 (45-73) % Lymph % (Auto) 43.0 H (20-40) % [place] % (Auto) 8.2 (2-11) % Eos % (Auto) 2.5 (0-4) % Baso % (Auto) 0.6 (0-2) % Lymph # (Auto) 2.2 (1.2-4.9) X10*3/uL [place] # (Auto) 0.4 (0.1-1.2) X10*3/uL Eos # (Auto) 0.1 (0.0-0.4) X10*3/uL Baso # (Auto) 0.0 (0.0-0.2) X10*3/uL Abs Immat Gran (auto) 0.01 (0.00-0.03) X10*3/uL Absolute Neuts (auto) 2.3 (2.0-8.3) x10*3/uL Absolute Nucleated RBC 0.000 (0.0-0.012) X10*3/uL Nucleated RBC % (auto) 0.0 (0.0-0.2) /100WBC Sodium 138 (135-145) mmol/L Potassium 4.1 (3.3-5.1) mmol/L Chloride 106 (96-108) mmol/L Carbon Dioxide 21 L (22-29) mmol/L Anion Gap 15 (12-20) BUN 8 L (9-16) mg/dL Creatinine 1.06 (0.5-1.4) mg/dL Estim Creat Clear Calc 128.1 Estimated GFR > 60 Random Glucose 113 (60-115) mg/dL Calcium 9.5 (8.4-10.2) mg/dL Total Bilirubin 0.2 (0.0-1.0) mg/dL Direct Bilirubin < 0.2 (0.0-0.5) mg/dL AST 34 (5-37) U/L ALT 46 H (0-40) U/L Alkaline Phosphatase 92 (39-117) U/L Total Protein 7.8 (6.5-8.0) g/dL Albumin 4.3 (3.5-5.0) g/dL Urine Color Yellow Urine Appearance Clear Urine pH 6.5 (5.0-9.0) Ur Specific [place] 1.010 (1.005-1.025) Urine Protein Negative (Neg-Trace) mg/dL Urine Glucose (UA) Negative (Negative) mg/dL Urine Ketones Negative (Negative) mg/dL Urine Blood Negative (Negative) Urine Nitrite Negative (Negative) Ur Leukocyte Esterase Negative (Negative) Urine Opiates Screen Not Detected (Not Detect) Urine Fentanyl Screen POSITIVE H (Not Detect) Ur Barbiturates Screen Not Detected (Not Detect) Ur Phencyclidine Scrn Not Detected (Not Detect) Ur Amphetamines Screen Not Detected (Not Detect) U Benzodiazepines Scrn Not Detected (Not Detect) Urine Cocaine Screen POSITIVE H (Not Detect) U Marijuana (THC) Screen POSITIVE H (Not Detect) Ethyl Alcohol < 10 mg/dL Critical Care Time Critical Care Time Critical Care Time: Yes Total Critical Care Time: 30 Attestation: I have personally provided critical care time. Time includes review of lab data, radiology results, discussion with consultants, and monitoring for potential decompensation. Intervention performed as documented. Discharge Plan Discharge Clinical Impression: Suicidal ideation, Polysubstance abuse Patient Disposition: Home, Self-Care Instructions: Polysubstance Abuse (ED), Help Prevent Suicide (ED) Prescriptions: No Action prazosin 2 mg Capsule 2 mg PO BEDTIME Rx Instructions: Take with 10mg for total dose of 12mg Prazosin at HS hydroxyzine pamoate 50 mg Capsule 50 mg PO TID PRN (Reason: Anxiety) melatonin 3 mg Tablet 6 mg PO BEDTIME PRN (Reason: Insomnia) venlafaxine 150 mg Capsule,Extended Release 24hr 150 mg PO DAILY Rx Instructions: Take one capsule PO once daily with a 75mg for total dose 225mg quetiapine 400 mg Tablet 400 mg PO BEDTIME venlafaxine 75 mg capsule,extended release 24hr 75 mg PO DAILY Rx Instructions: Take one 75mg capsule with one 150mg capsule for a total dose of 225mg quetiapine 100 mg tablet 100 mg PO BID prazosin [Minipress] 5 mg capsule 10 mg PO BEDTIME Rx Instructions: Take two 5mg Capsules with a 2mg capsule for total dose 12mg at bedtime. clonidine HCl 0.2 mg tablet 0.2 mg PO BEDTIME clonazepam 2 mg tablet 2 mg PO TID PRN (Reason: Anxiety) Rx Instructions: Prescription filled on 03/10 for 90 Tablets. Bottle is empty upon arrival to hospital 03/16 PT still presenting empty bottle from 03/10. methadone 10 mg/mL Concentrate 175 mg PO DAILY Referrals: Physician,Unknown J [Primary Care Provider] - (Partial hospitalization program as recommended) Interventions: [place]-Suicide Risk Severity Scale Last Done: 04/02/23 06:49
[2023-04-01 16:16] LABS: MANUAL DIFF FLAG NO
[2023-04-01 16:19] LABS: Appearance Urine Clear; Color Urine Yellow; Glucose Urine UA Negative (Negative); Leukocyte Esterase Urine Negative (Negative); Nitrite Urine Negative (Negative); PH 6.5 (5.0-9.0); Urine Blood Negative (Negative); Urine Ketones Negative (Negative); Urine Protein Negative (Neg-Trace)
[2023-04-01 16:25] LABS: Amphetamine Screen Urine Not Detected (Not Detect); Barbiturates, Urine Not Detected (Not Detect); Benzodiazepines Screen Urine Not Detected (Not Detect); Cannabinoid Screen Urine POSITIVE (Not Detect); Cocaine Screen Urine POSITIVE (Not Detect); Fentanyl, urine POSITIVE (Not Detect); Opiate Screen Urine Not Detected (Not Detect); Phencyclidine Screen Urine Not Detected (Not Detect)
[2023-04-01 16:30] LABS: Basophils Percent Auto 0.6 % (0-2); Eosinophils Absolute Auto 0.1 X10*3/uL (0.0-0.4); Eosinophils Percent Auto 2.5 % (0-4); Hematocrit 39.8 % (42.0-52.0); Hemoglobin 13.3 g/dl (14.0-18.0); Imm Gran Abs Auto 0.01 X10*3/uL (0.00-0.03); Imm Gran Pct Auto 0.2 % (0.0-0.4); Lymphocytes Absolute Auto 2.2 X10*3/uL (1.2-4.9); Mean Corpuscular HGB Conc 33.4 g/dl (31.0-36.0); Mean Corpuscular Hemoglobin 28.8 pg (27.0-33.0); Mean Corpuscular Volume 86.1 fL (80.0-98.0); Mean Platelet Volume 9.1 fL (9.4-12.4); Monocytes Absolute Auto 0.4 X10*3/uL (0.1-1.2); Monocytes Percent Auto 8.2 % (2-11); Neutrophils Absolute Auto 2.3 x10*3/uL (2.0-8.3); Neutrophils Percent Auto 45.5 % (45-73); Platelet Count 253 X10*3/uL (160-400); Red Blood Count 4.62 X10*6/uL (4.60-5.80); Red Cell Distribution Width 12.3 % (11.0-16.0); White Blood Count 5.1 X10*3/uL (4.8-10.8)
[2023-04-01 16:38] LABS: Alanine Aminotransferase 46 U/L (0-40); Albumin Level 4.3 g/dL (3.5-5.0); Alkaline Phosphatase 92 U/L (39-117); Anion Gap 15 (12-20); Aspartate Amino Transferase 34 U/L (5-37); Bilirubin Direct < 0.2 mg/dL (0.0-0.5); Bilirubin Total 0.2 mg/dL (0.0-1.0); Blood Urea Nitrogen 8 mg/dL (9-16); Calcium 9.5 mg/dL (8.4-10.2); Carbon Dioxide 21 mmol/L (22-29); Chloride 106 mmol/L (96-108); Creatinine Clr Calc Pharmacy 128.1; Estimated Glomerular Filt Rate > 60; Ethanol < 10 mg/dL; Glucose Random 113 mg/dL (60-115); Potassium 4.1 mmol/L (3.3-5.1); Sodium 138 mmol/L (135-145); Total Protein 7.8 g/dL (6.5-8.0)
--- NOTE | 2023-04-01 16:43 | PC.NURSE ---
Called SUKH. PT last dosed in [place] at 0910 today 04/01/23 at 175mg's methadone. This was confirmed by MAMTA Small
[2023-04-01 18:22] VITALS: RESP 18
--- NOTE | 2023-04-01 18:23 | PC.NURSE ---
aHrish arrived to the emergency room with SI. Reports he is not feeling safe and would like admission. Harish states his medications are still the same as his last admission. Methadone verified with N. No behavioral concerns. Appetite good. Harish does endorse SI but is denying HI/AVH.
[2023-04-02 03:26] VITALS: BP 119/91; PULSE 104; RESP 17; TEMP 36.4; O2SAT 99
[2023-04-02] MEDS: clonazePAM 1 MG TABLET 2 MG PO (03:28)
--- NOTE | 2023-04-02 06:17 | HE.PHANOTE ---
RE: METHADONE Pharmacy received patients methadone verification sheet.Patients last dose was with SUKH ghosh, 175 mg last dosed 04/01/23 @0979
--- NOTE | 2023-04-02 07:21 | SUR.OPER ---
Patient slept through the night, no distress observed/reported, klonopin 2 mg administered at 0328 with + effect, medication compliant, HS med was approved late, not administered due to patient sleeping, disposition per care team is partial hospitalization program, VSS, behavior non concerning, will continue to monitor.
[2023-04-02 09:13] VITALS: BP 121/76; PULSE 65; RESP 16; TEMP 36.3; O2SAT 97
[2023-04-02] MEDS: methADONE HCl 20 MG/2 ML ORAL.CONC 175 MG PO (09:54)
[2023-04-02] MEDS: Venlafaxine HCl ER 150 MG CAP.ER.24H PO (09:55)
[2023-04-02] MEDS: QUEtiapine Fumarate 100 MG TABLET PO (09:55)
[2023-04-02] MEDS: Venlafaxine HCl ER 75 MG CAP.ER.24H PO (09:55)
--- NOTE | 2023-04-02 10:02 | MHC.CARE ---
The RAD Team made a referral to [facility]. The completed referral form and the CARE Team assessment were faxed to [phone]. T/w will document for a follow up call to be made tomorrow.
--- NOTE | 2023-04-02 10:36 | PC.NURSE ---
Harish was OOB this morning and req his AM medications which were given. Methadone 175mg given as well. Clinic notified as Harish is discharging and will be getting a lyft ride to the living room in [place]. Harish is denying SI/HI/AVH
--- NOTE | 2023-04-02 11:14 | MHC.CARE ---
CARE Team followed up with patient this morning and provided him with LYFT to [address] [place] [address] at his request. ED provider, Dr. Chisholm updated
== END 2023-04-02 10:42 | disposition home or self-care (01) ==
PROVIDERS: Physician Assistant Medical; Emergency Provider Emergency Medicine
DX: R45.851 Suicidal ideations (principal); F43.10 Post-traumatic stress disorder, unspecified; F11.10 Opioid abuse, uncomplicated; F14.10 Cocaine abuse, uncomplicated; F12.10 Cannabis abuse, uncomplicated; Z79.899 Other long term (current) drug therapy; F17.210 Nicotine dependence, cigarettes, uncomplicated; Z71.6 Tobacco abuse counseling
CPT/HCPCS: 36415; 80048; 80076; 80307; 81003; 85025; 99284; S9485

== ENCOUNTER 2023-10-07 17:42 | Inpatient (IN) | payer MEDICAID, SELFPAY ==
--- NOTE | ~2023-10-07 | XR_ITS ---
EXAMINATION: XR ABDOMEN KUB CLINICAL INDICATION: Constipation. Abdominal pain. COMPARISON: None available. TECHNIQUE: AP view of the abdomen. FINDINGS: Stool throughout the colon suggestive of constipation. No dilated loops of bowel to suggest obstruction. No free air. Surgical staple line seen in the left mid abdomen. No calcifications. Bony structures unremarkable. XR/XR KUB IMPRESSION: Stool throughout the colon suggestive of constipation.
[2023-10-07 18:01] VITALS: BP 110/68; PULSE 85; RESP 18; TEMP 36.6; O2SAT 95; BMI 22.7
--- NOTE | 2023-10-07 18:01 | ED.PSYCH ---
HPI - Psych General Chief Complaint: Psychiatric Symptoms Stated Complaint: needs psych med refill Time Seen by Provider: 10/07/23 18:20 Source: patient Mode of arrival: ambulatory Limitations: no limitations History of Present Illness HPI Narrative: 33-year-old male with a history of depression, PTSD and anxiety. Patient states that his depression anxiety is ?through the roof?. Patient states that he was incarcerated for 24 days for violating parole and was released proximally 9 days prior. He states that while he was incarcerated he was on different medications for his depression and anxiety then his outpatient regimen. He states he was not given any of his medicines and has not been taking his medications for 9 days. Patient is in a methadone program he states that he has been getting his methadone daily. He states that he was given methadone 190 mg today by his clinic. Patient told the provider in triage that he has not been able to pass flatus for 1 week. Related Data Home Medications ?Medication ?Instructions ?Recorded ?Confirmed hydroxyzine pamoate 50 mg capsule 50 mg PO TID PRN Anxiety 01/12/23 10/08/23 melatonin 3 mg tablet 6 mg PO BEDTIME PRN Insomnia 01/12/23 10/08/23 quetiapine 400 mg tablet 400 mg PO BEDTIME 01/12/23 10/08/23 venlafaxine 150 mg 150 mg PO DAILY 01/12/23 10/08/23 capsule,extended release 24 hr clonazepam 2 mg tablet 2 mg PO TID PRN Anxiety 03/16/23 10/08/23 methadone 10 mg/mL oral concentrate 190 mg PO DAILY 03/16/23 10/08/23 prazosin 5 mg capsule (Minipress) 5 mg PO BEDTIME insomnia 03/16/23 10/08/23 quetiapine 100 mg tablet 100 mg PO BID 03/16/23 10/08/23 venlafaxine 75 mg capsule,extended 75 mg PO DAILY 03/16/23 10/08/23 release 24 hr Allergies Allergy/AdvReac Type Severity Reaction Status Date / Time codeine Allergy RESTLESS Verified 10/07/23 18:07 LEG trazodone Allergy Hives Verified 10/07/23 18:07 Review of Systems Review of Systems: Yes all other systems are reviewed and are negative PMFSH Past Medical History PMFSH Narrative: Social history: Patient occasionally vapes tobacco products. Denies alcohol. He does use injection drugs he did use heroin several days ago Medical History Chronic schizophrenia Depression with suicidal ideation Bipolar disorder Social History Social History Household Members: None Housing: Homeless Do you presently have visiting nurse or other home services: No Unable to assess alcohol history related to: Unknown Alcohol intake: never Patient Tobacco Use Status: Never used Tobacco Tobacco use type: Cigarette Cigarette Packs Per Day: 1.5 Cigarettes Per Day: 30.0 Years Smoked: over 10 Smoked in Last 30 Days: Yes e-Cigarette/Vaping Use: Never Used Second Hand Smoke Exposure: Yes Use of substances other than those prescribed or required for medical reasons: Yes Substance Use Type: Marijuana and Opiates Substance Use Frequency: Chronic Longstanding Last Used Substance: Days (ago) Any prior treatment program specific to substance use: Yes Advance Directives: No Advance Directives Information Provided: No service: No Sexual orientation: Straight/Heterosexual Physical Exam Vital Signs: Vital Signs: Last Vital Signs Temp 98.1 F 10/08/23 08:12 Pulse 71 10/08/23 08:12 Resp 18 10/08/23 08:12 BP 129/84 10/08/23 08:12 Pulse Ox 100 10/08/23 08:12 O2 Del Method Room Air 10/08/23 08:12 BMI result Body Mass Index 22.7 Vital signs were normal Exam: General: Awake, alert in no distress Head: Normocephalic, atraumatic EENT: PERRL, Lids normal, sclera normal, conjunctiva normal, nose normal , ears normal, throat without erythema or exudates Neck: Supple, no adenopathy Lung: breath sounds symmetric, no wheezing, rales or rhonchi Chest: symmetric movement, nontender Heart: regular rate and rhythm, normal S1, S2 no murmurs or rubs Abdomen: soft, non-tender, nondistended, normal bowel sounds Back: no vertebral tenderness, no CVAT Extremities: no deformities, moves all extremities symmetrically Neuro: Awake, alert, oriented, normal speech, cranial nerves intact, moves all extremities symmetrically Psych: Pleasant, cooperative Course Course Course Narrative: RME:?33 yo male w/ hx of depression, FLORY, PTSD, polysubstance use, opioid use disorder on methadone here requesting refill on medications. he was released from longterm on 09/28/23 and none of his medications were refilled for him. he presented to the court today and upon hearing his situation, the household appliances salesperson advised him to come to the ED. endorses insomnia. feels like he is withdrawing from these medications. admits to marijuana use and using a couple bags of heroin to try and help him go to sleep. Denies SI/HI. additionally admits he has not been able to pass a BM in over 1 wk. passing flatus. labs, ua, uds, KUB ordered. Full HPI, ROS and PE to be performed by the primary ED provider. Current medications- clonazepam, clonidine, hydroxyzine, prazosin, quetiapine, venlafaxine. he has however been taking his methadone daily. Reevaluation(s) Reevaluation #1: Physician observation continued. VS stable, no acute events overnight, pending CARE team evaluation TRACY 717am 10/08/23 Reevaluation #2: observation care revealed that the patient does meet inpatient psychiatric necessity for hospitalization. final disposition discussed with the patient. The patient completed observation care at 3pm. Total time in observation care was 11 hours. Medications Administered Generic Name Dose Route Start Last Admin Trade Name Freq PRN Reason Stop Dose Admin Clonazepam 2 mg 10/08/23 08:50 10/08/23 10:07 Clonazepam 1 Mg Tablet PO 2 mg TID PRN Administration Anxiety Methadone HCl 190 mg 10/08/23 09:00 10/08/23 10:02 Methadone Hcl 20 Mg/2 Ml Oral.Conc PO 190 mg DAILY RUSSELL Administration Quetiapine Fumarate 100 mg 10/08/23 09:00 10/08/23 10:02 Quetiapine Fumarate 100 Mg Tablet PO 100 mg BID RUSSELL Administration Venlafaxine HCl 75 mg 10/08/23 09:00 10/08/23 10:02 Venlafaxine Hcl Er 75 Mg Cap.Er.24h PO 75 mg DAILY RUSSELL Administration Venlafaxine HCl 150 mg 10/08/23 09:00 10/08/23 10:02 Venlafaxine Hcl Er 150 Mg Cap.Er.24h PO 150 mg DAILY RUSSELL Administration Medical Decision Making Medical Decision Making MDM Narrative: 33-year-old male with a history of opiate use disorder, depression, PTSD and anxiety who presents emergency department for evaluation of increased depression and anxiety since being off his medications for approximately 9 days. The patient was incarcerated for 24 days after violating conditions of his parole. Patient states while he was incarcerated he was on different medications and [facility] was [facility] he was not given any medications. Patient is in a methadone program for his opiate use disorder but he did use heroin several days prior. He denied being suicidal or homicidal. Physical examination was unremarkable. Differential diagnosis: ?Includes but is not limited to depression, anxiety, suicidal ideation, homicidal ideation, noncompliance with medications, electrolyte abnormalities, anemia, alcohol intoxication, opiate intoxication Following evaluation was ordered: CBC, CMP, lipase, magnesium, salicylates, ethanol, drug screen urine, KUB Course: My independent interpretation patient's laboratory evaluation is as follows: Normocytic anemia with an H&H of 12 and 35.2-similar anemia in the past. Elevated bicarb 32. Elevated AST, ALT. Lipase normal. Urinalysis was negative. U tox positive for fentanyl, benzodiazepines, cocaine, marijuana. Alcohol was below detectable limits. COVID negative. 02:22 Start physician observation Patient is medically cleared for evaluation by the care team. Patient will remain in the emergency department Behavioral Health Unit until disposition can be determined or until patient's symptoms improve over time. At the end of my shift, patient's care was turned over to my colleague, Dr. Montes Admission/Observation Consideration of admission/observation: Escalation of care including admission/observation considered Lab Data MDM Lab Attestation statement: I reviewed the patient's lab results. 10/07/23 20:53 10/07/23 20:53 Labs: Lab Results 10/07/23 10/08/23 Range/Units 20:53 00:08 WBC 6.5 (4.8-10.8) X10*3/uL RBC 4.09 L (4.60-5.80) X10*6/uL Hgb 12.0 L (14.0-18.0) g/dl Hct 35.2 L (42.0-52.0) % MCV 86.1 (80.0-98.0) fL MCH 29.3 (27.0-33.0) pg MCHC 34.1 (31.0-36.0) g/dl RDW 13.2 (11.0-16.0) % Plt Count 203 (160-400) X10*3/uL MPV 9.3 L (9.4-12.4) fL Immature Gran % (Auto) 0.3 (0.0-0.4) % Neut % (Auto) 53.2 (45-73) % Lymph % (Auto) 36.0 (20-40) % [place] % (Auto) 7.5 (2-11) % Eos % (Auto) 2.5 (0-4) % Baso % (Auto) 0.5 (0-2) % Lymph # (Auto) 2.4 (1.2-4.9) X10*3/uL [place] # (Auto) 0.5 (0.1-1.2) X10*3/uL Eos # (Auto) 0.2 (0.0-0.4) X10*3/uL Baso # (Auto) 0.0 (0.0-0.2) X10*3/uL Abs Immat Gran (auto) 0.02 (0.00-0.03) X10*3/uL Absolute Neuts (auto) 3.5 (2.0-8.3) x10*3/uL Absolute Nucleated RBC 0.000 (0.0-0.012) X10*3/uL Nucleated RBC % (auto) 0.0 (0.0-0.2) /100WBC Sodium 140 (135-145) mmol/L Potassium 3.6 (3.3-5.1) mmol/L Chloride 104 (96-108) mmol/L Carbon Dioxide 32 H (22-29) mmol/L Anion Gap 8 L (12-20) BUN 5 L (9-16) mg/dL Creatinine 0.73 (0.5-1.4) mg/dL Estim Creat Clear Calc 181.5 Estimated GFR > 60 Random Glucose 83 (60-115) mg/dL Calcium 8.7 D (8.4-10.2) mg/dL Magnesium 2.6 (1.6-2.6) mg/dL Total Bilirubin 0.3 (0.0-1.0) mg/dL AST 54 H (5-37) U/L ALT 99 H (0-40) U/L Alkaline Phosphatase 80 (39-117) U/L Total Protein 6.2 L (6.5-8.0) g/dL Albumin 3.6 (3.5-5.0) g/dL Lipase 12 (8-78) U/L Urine Color Yellow Urine Appearance Clear Urine pH 6.5 (5.0-9.0) Ur Specific [place] <= 1.005 (1.005-1.025) Urine Protein Negative (Neg-Trace) mg/dL Urine Glucose (UA) Negative (Negative) mg/dL Urine Ketones Negative (Negative) mg/dL Urine Blood Negative (Negative) Urine Nitrite Negative (Negative) Ur Leukocyte Esterase Negative (Negative) Salicylates < 5.0 L (15-30) mg/dL Urine Opiates Screen Not Detected (Not Detect) Ur Buprenorphine Scrn Not Detected (Not Detect) ng/mL Ur Oxycodone Screen Not Detected (Not Detect) ng/mL Urine Methadone Screen Positive (Not Detect) ng/mL Urine Fentanyl Screen POSITIVE H (Not Detect) Ur Barbiturates Screen Not Detected (Not Detect) Ur Phencyclidine Scrn Not Detected (Not Detect) Ur Amphetamines Screen Not Detected (Not Detect) U Benzodiazepines Scrn POSITIVE H (Not Detect) Urine Cocaine Screen POSITIVE H (Not Detect) U Marijuana (THC) Screen POSITIVE H (Not Detect) Ethyl Alcohol < 10 mg/dL COVID-19 ([facility]) Negative (Negative) COVID-19 Clin Com See Note Independent Interpretation I performed an independent interpretation of an: Plain X-Ray Interpretation: My independent interpretation the patient's one-view KUB is as follows: Stool throughout the colon, no obvious obstructive pattern Radiology Impression Discussion of test interpretation with radiology: I have reviewed the radiologist's reading. Radiologist Impression: XR KUB IMPRESSION: Stool throughout the colon suggestive of constipation. Dictated By: Michelle Sutton MD Chronic Conditions Patient?s care impacted by: Other (Polysubstance use disorder, depression, anxiety) Discharge Plan Discharge Clinical Impression: Depression, FLORY (generalized anxiety disorder), Polysubstance abuse Patient Disposition: Admitted As Inpatient Interventions: [place]-Suicide Risk Severity Scale Last Done: 10/07/23 18:49
[2023-10-07 18:47] VITALS: BP 110/68; PULSE 85; RESP 18; TEMP 36.6; O2SAT 95
--- NOTE | 2023-10-07 19:19 | PC.NURSE ---
patient appears to remain at rest at present periodically approached nurses station and asks about snacks, wanting to chat w t/w. appears in no distress.
[2023-10-07 20:59] VITALS: BP 97/55; PULSE 52; RESP 16; O2SAT 96
[2023-10-07 21:01] LABS: MANUAL DIFF FLAG NO
[2023-10-07 21:05] LABS: Basophils Percent Auto 0.5 % (0-2); Eosinophils Absolute Auto 0.2 X10*3/uL (0.0-0.4); Eosinophils Percent Auto 2.5 % (0-4); Hematocrit 35.2 % (42.0-52.0); Imm Gran Abs Auto 0.02 X10*3/uL (0.00-0.03); Imm Gran Pct Auto 0.3 % (0.0-0.4); Lymphocytes Absolute Auto 2.4 X10*3/uL (1.2-4.9); Mean Corpuscular HGB Conc 34.1 g/dl (31.0-36.0); Mean Corpuscular Hemoglobin 29.3 pg (27.0-33.0); Mean Corpuscular Volume 86.1 fL (80.0-98.0); Mean Platelet Volume 9.3 fL (9.4-12.4); Monocytes Absolute Auto 0.5 X10*3/uL (0.1-1.2); Monocytes Percent Auto 7.5 % (2-11); Neutrophils Absolute Auto 3.5 x10*3/uL (2.0-8.3); Neutrophils Percent Auto 53.2 % (45-73); Platelet Count 203 X10*3/uL (160-400); Red Blood Count 4.09 X10*6/uL (4.60-5.80); Red Cell Distribution Width 13.2 % (11.0-16.0); White Blood Count 6.5 X10*3/uL (4.8-10.8)
[2023-10-07 21:20] LABS: Alanine Aminotransferase 99 U/L (0-40); Albumin Level 3.6 g/dL (3.5-5.0); Alkaline Phosphatase 80 U/L (39-117); Anion Gap 8 (12-20); Aspartate Amino Transferase 54 U/L (5-37); Bilirubin Total 0.3 mg/dL (0.0-1.0); Blood Urea Nitrogen 5 mg/dL (9-16); COVID-19 Test Negative (Negative); Calcium 8.7 mg/dL (8.4-10.2); Carbon Dioxide 32 mmol/L (22-29); Chloride 104 mmol/L (96-108); Creatinine Clr Calc Pharmacy 181.5; Estimated Glomerular Filt Rate > 60; Glucose Random 83 mg/dL (60-115); IDNOW Serial# 55D5AD1C; Lipase 12 U/L (8-78); Magnesium 2.6 mg/dL (1.6-2.6); Potassium 3.6 mmol/L (3.3-5.1); Sodium 140 mmol/L (135-145); Total Protein 6.2 g/dL (6.5-8.0)
[2023-10-07 21:21] LABS: Ethanol < 10 mg/dL
[2023-10-07 21:25] LABS: Salicylate < 5.0 mg/dL (15-30)
[2023-10-08 00:14] LABS: Appearance Urine Clear; Color Urine Yellow; Glucose Urine UA Negative (Negative); Leukocyte Esterase Urine Negative (Negative); Nitrite Urine Negative (Negative); PH 6.5 (5.0-9.0); Specific Gravity - Urine <= 1.005 (1.005-1.025); Urine Blood Negative (Negative); Urine Ketones Negative (Negative); Urine Protein Negative (Neg-Trace)
[2023-10-08 00:25] LABS: Amphetamine Screen Urine Not Detected (Not Detect); Barbiturates, Urine Not Detected (Not Detect); Benzodiazepines Screen Urine POSITIVE (Not Detect); Buprenorphine Scr Not Detected (Not Detect); Cannabinoid Screen Urine POSITIVE (Not Detect); Cocaine Screen Urine POSITIVE (Not Detect); Fentanyl, urine POSITIVE (Not Detect); Methadone Screen, Urine Positive (Not Detect); Opiate Screen Urine Not Detected (Not Detect); Oxycodone Screen Urine Not Detected (Not Detect); Phencyclidine Screen Urine Not Detected (Not Detect)
--- NOTE | 2023-10-08 03:42 | PC.NURSE ---
Took of care from Kalina, pt sleeping at this time, no sign of distress.
[2023-10-08 05:40] VITALS: BP 123/66; PULSE 69; RESP 18; TEMP 36.6; O2SAT 98
[2023-10-08 08:12] VITALS: BP 129/84; PULSE 71; RESP 18; TEMP 36.7; O2SAT 100
--- NOTE | 2023-10-08 08:25 | HE.PHANOTE ---
RE: METHADONE DOSING Last dose of methadone 190 mg was given on 10/07/23 @1057 with take home until 10/09/23...per Micha VEGAS.
[2023-10-08] MEDS: Venlafaxine HCl ER 150 MG CAP.ER.24H PO (10:02)
[2023-10-08] MEDS: QUEtiapine Fumarate 100 MG TABLET PO (10:02)
[2023-10-08] MEDS: Venlafaxine HCl ER 75 MG CAP.ER.24H PO (10:02)
[2023-10-08] MEDS: methADONE HCl 20 MG/2 ML ORAL.CONC 190 MG PO (10:02)
[2023-10-08] MEDS: clonazePAM 1 MG TABLET 2 MG PO ×2 (10:07→20:53)
--- NOTE | 2023-10-08 10:08 | PC.NURSE ---
pt reported anxiety, given PRN for anxiety
--- NOTE | 2023-10-08 11:02 | ECG_ITS ---
Test Reason : CHECK PROLONGED QT Blood Pressure : / mmHG Vent. Rate : 052 BPM Atrial Rate : 052 BPM P-R Int : 174 ms QRS Dur : 086 ms QT Int : 474 ms P-R-T Axes : 016 055 048 degrees QTc Int : 440 ms Sinus bradycardia Otherwise normal ECG When compared with ECG of 16-MAR-2023 14:53, Criteria for Lateral infarct are no longer Present Referred By: Bran Emery Electronically Signed By:MELISSA OSCAR
--- NOTE | 2023-10-08 18:38 | PC.ADMIT ---
Colin. admit from POD @ 1514 for increased ANX. Pt. extensive hx of polysubstance abuse and ANX/DEP. Pt. states he was released from correctional institution 9-kelsie days prior after 24days in for parole violation. +tox screen polysubstance. Pt. d/c'ed from correctional institute w/o medications. Pt. endorses increased ANX through the roof . States he is looking to get back on his meds and get back to normal . States he has not slept in 5 days and wants to sleep. Very tired and somnolent during interview. Pt. allowed to sleep after attempting to sign ETELVINA's. Pt. refused to participate in most of interview until he was allowed sleep. Pt. denies HI/SI/AVH. Placed on 15min checks.
[2023-10-08 20:00] VITALS: BP 116/68; PULSE 57; RESP 17; TEMP 36.3; O2SAT 95
[2023-10-08 20:50] VITALS: BP 116/68
[2023-10-08] MEDS: Prazosin HCL 5 MG CAPSULE PO (20:50)
[2023-10-08] MEDS: QUEtiapine Fumarate 400 MG TABLET PO (20:51)
--- NOTE | 2023-10-08 22:16 | PC.NURSE ---
The patient arrived at the unit at 1545. During the initial skin assessment of the patient at that time, the patient appeared sedated. The appeared to drop a vape that he had appeared to conceal in his palm.
--- NOTE | 2023-10-08 22:36 | PC.NURSE ---
Pt arrived at 1545. Pt came with two clear plastic bags and a backpack. The bags and the backpack each had two demographic stickers for different patients.?
[2023-10-09 08:00] VITALS: BP 113/59; PULSE 87; RESP 16; TEMP 37.9; O2SAT 93
[2023-10-09] MEDS: Venlafaxine HCl ER 150 MG CAP.ER.24H PO (09:03)
[2023-10-09] MEDS: Multivitamin TABLET 1 TAB PO (09:04)
[2023-10-09] MEDS: Folic Acid 1 MG TABLET PO (09:04)
[2023-10-09] MEDS: QUEtiapine Fumarate 100 MG TABLET PO ×2 (09:04→21:19)
[2023-10-09] MEDS: Thiamine HCL 100 MG TABLET PO (09:04)
[2023-10-09] MEDS: Venlafaxine HCl ER 75 MG CAP.ER.24H PO (09:38)
[2023-10-09] MEDS: methADONE HCl 20 MG/2 ML ORAL.CONC 190 MG PO (09:38)
[2023-10-09] MEDS: clonazePAM 1 MG TABLET 2 MG PO (09:38)
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
[2023-10-09 15:51] VITALS: BP 103/57; PULSE 63; RESP 16; TEMP 36.6; O2SAT 93
[2023-10-09] MEDS: clonazePAM 0.5 MG TABLET PO (21:19)
[2023-10-09] MEDS: Prazosin HCL 5 MG CAPSULE PO (21:19)
[2023-10-09] MEDS: QUEtiapine Fumarate 400 MG TABLET PO (21:19)
[2023-10-09] MEDS: cloNIDine HCL 0.1 MG TABLET PO (21:19)
[2023-10-10 08:00] VITALS: BP 92/54; PULSE 61; RESP 16; TEMP 36.8; O2SAT 95
[2023-10-10] MEDS: Thiamine HCL 100 MG TABLET PO (08:44)
[2023-10-10] MEDS: Folic Acid 1 MG TABLET PO (08:44)
[2023-10-10] MEDS: Venlafaxine HCl ER 75 MG CAP.ER.24H PO (08:44)
[2023-10-10] MEDS: Multivitamin TABLET 1 TAB PO (08:44)
[2023-10-10] MEDS: QUEtiapine Fumarate 100 MG TABLET PO ×2 (08:44→21:27)
[2023-10-10] MEDS: Venlafaxine HCl ER 150 MG CAP.ER.24H PO (08:44)
[2023-10-10] MEDS: methADONE HCl 20 MG/2 ML ORAL.CONC 190 MG PO (09:28)
[2023-10-10] MEDS: clonazePAM 0.5 MG TABLET PO ×2 (09:34→21:26)
--- NOTE | 2023-10-10 10:23 | HO.PSYCHPN ---
Subjective Subjective Date of Service: 10/10/23 Reason For Visit: PTSD, major depression,polysubstance use disorder Interim History: Met with patient; discussed with team Patient seems groggy but said he does not think so. He reports that he still depressed but a little less. He says still with SI but it is starting to clear up. Patient had nightmares last night. He wants prazosin left only 5 mg saying at higher doses it makes nightmares worse. Patient asked for clonazepam to be scheduled instead of p.r.n. and says he gets a prescription for it. Take Away Attendant however explained that there is no prescriptions in the [facility] since 2022; patient accepted current dose and that it will remain at a p.r.n.. So that he does not take it unnecessarily Mental Status Exam Mental Status Exam Narrative: Pt is alert and oriented; behavior is tired, but friendly and cooperative, calm; patient is not in distress; shirtless, tattooed arms; scruffy calero, marginal hygiene; mood is described as depressed and affect blunted; eye contact appropriate; Speech is spontaneous, soft; psychomotor retardation present; thought process is goal directed; Thought content is on waning SI, treatment; otherwise pertinent to relevant topics and without any delusional content, paranoid ideations or grandiosity; passive SI which is waning; no HI. There is no evidence of perceptual disturbance. Patients insight and judgment impaired. Diagnostics Vital Signs (24Hr): Vital Signs - 24 hr 10/09/23 15:51 10/10/23 08:00 Temperature 98 F 98.2 F Pulse Rate 63 61 Respiratory Rate 16 16 Blood Pressure 103/57 L 92/54 L Pulse Oximetry 93 95 Oxygen Delivery Method Room Air Room Air BMI result Body Mass Index 22.7 Labs 10/07/23 20:53 10/07/23 20:53 Imaging Radiology Impressions: ITS Impressions KUB X-Ray 10/07/23 18:28 IMPRESSION: Stool throughout the colon suggestive of constipation. Medications Medications Current Medications Acetaminophen (Acetaminophen 325 Mg Tablet) 650 mg PO Q6H PRN PRN Reason: Headache/Pain Mild Scale (1-3) Al Hydroxide/Mg Hydroxide (Magnesium Hydrox/Alum Hydrox 30 Ml Oral.Susp) 30 ml PO Q6H PRN PRN Reason: Heartburn/Nausea Clonazepam (Clonazepam 0.5 Mg Tablet) 0.5 mg PO TID PRN PRN Reason: Anxiety Last Admin: 10/10/23 09:34 Dose: 0.5 mg Clonidine HCl (Clonidine Hcl 0.1 Mg Tablet) 0.1 mg PO BID PRN; Protocol PRN Reason: anxiety, withdrawal Last Admin: 10/09/23 21:19 Dose: 0.1 mg Folic Acid (Folic Acid 1 Mg Tablet) 1 mg PO DAILY [facility] Last Admin: 10/10/23 08:44 Dose: 1 mg Hydroxyzine HCl (Hydroxyzine Hcl 50 Mg Tablet) 50 mg PO TID PRN PRN Reason: Anxiety Hydroxyzine HCl (Hydroxyzine Hcl 25 Mg Tablet) 25 mg PO Q6H PRN PRN Reason: Anxiety Magnesium Hydroxide (Milk Of Magnesia 30 Ml Oral.Susp) 30 ml PO DAILY PRN PRN Reason: Constipation Melatonin (Melatonin 3 Mg Tablet) 6 mg PO BEDTIME PRN PRN Reason: Insomnia Methadone HCl (Methadone Hcl 20 Mg/2 Ml Oral.Conc) 190 mg PO DAILY [facility] Last Admin: 10/10/23 09:28 Dose: 190 mg Multivitamins/Vitamin C (Multivitamin Tablet) 1 tab PO DAILY [facility] Last Admin: 10/10/23 08:44 Dose: 1 tab Prazosin HCl (Prazosin Hcl 5 Mg Capsule) 5 mg PO BEDTIME [facility]; Protocol Last Admin: 10/09/23 21:19 Dose: 5 mg Quetiapine Fumarate (Quetiapine Fumarate 100 Mg Tablet) 100 mg PO BID [facility] Last Admin: 10/10/23 08:44 Dose: 100 mg Quetiapine Fumarate (Quetiapine Fumarate 400 Mg Tablet) 400 mg PO BEDTIME [facility] Last Admin: 10/09/23 21:19 Dose: 400 mg Thiamine HCl (Thiamine Hcl 100 Mg Tablet) 100 mg PO DAILY [facility] Last Admin: 10/10/23 08:44 Dose: 100 mg Venlafaxine HCl (Venlafaxine Hcl Er 75 Mg Cap.Er.24h) 75 mg PO DAILY [facility] Last Admin: 10/10/23 08:44 Dose: 75 mg Venlafaxine HCl (Venlafaxine Hcl Er 150 Mg Cap.Er.24h) 150 mg PO DAILY [facility] Last Admin: 10/10/23 08:44 Dose: 150 mg Allergies Allergies Allergy/AdvReac Type Severity Reaction Status Date / Time codeine Allergy RESTLESS Verified 10/07/23 18:07 LEG trazodone Allergy Hives Verified 10/07/23 18:07 Assessment & Plan Assessment & Plan (1) Depression: Status: Acute Code(s): F32.A - Depression, unspecified (2) PTSD (post-traumatic stress disorder): Status: Acute Code(s): F43.10 - Post-traumatic stress disorder, unspecified (3) Opioid use disorder: Status: Acute Code(s): F11.90 - Opioid use, unspecified, uncomplicated (4) Polysubstance abuse: Status: Acute Code(s): F19.10 - Other psychoactive substance abuse, uncomplicated Plan pt is a 33 yo male with hx of depression, ptsd, opiate and polysubstance abuse, on methadone, who presents, recently released from assisted for parole violation, off meds for 10 days, w/drawing from opiates/cocaine/meth and reporting Depression and SI. Pt is a limited historian, tired and difficult with which to engage. He said he was getting his medications [facility], but once released he was not given scripts. He quickly relapsed, became depressed and had vague thoughts of suicide. He wants to get back on home meds now. -denies alcohol use; received high dose of benzos in the ED, 2 mg t.i.d. hospital course: 10/09 Patient seems groggy but said he does not think so. He reports that he still depressed but a little less. He says still with SI but it is starting to clear up. Patient had nightmares last night. He wants prazosin left only 5 mg saying at higher doses it makes nightmares worse. Patient asked for clonazepam to be scheduled instead of p.r.n. and says he gets a prescription for it. Take Away Attendant however explained that there is no prescriptions in the [facility] since 2022; patient accepted current dose and that it will remain at a p.r.n.. So that he does not take it unnecessarily plan: CV q15 continue home meds started in ed seroquel 100mg BID seroquel 400mg qhs effexor 225mg daily LOWERED Clonazepam to 0.5mg TID (ED had her on 2mg TID; he has no scripts for past year) Patient educated on: diagnosis, medication risk/benefits and substance abuse Informed Consent: understands Reason for continued inpatient stay Substantial Risk for: rapid decompensation Time Spent With Patient Time: Total time managing care of this patient today ____ minutes.
[2023-10-10] MEDS: hydrOXYzine HCL 50 MG TABLET PO ×2 (13:16→21:27)
[2023-10-10 20:00] VITALS: BP 113/67; PULSE 75; RESP 18; TEMP 36.9; O2SAT 97
[2023-10-10] MEDS: Prazosin HCL 5 MG CAPSULE PO (21:26)
[2023-10-10] MEDS: QUEtiapine Fumarate 400 MG TABLET PO (21:26)
[2023-10-10] MEDS: Melatonin 3 MG TABLET 6 MG PO (21:26)
[2023-10-11] MEDS: Multivitamin TABLET 1 TAB PO (08:34)
[2023-10-11] MEDS: Venlafaxine HCl ER 75 MG CAP.ER.24H PO (08:34)
[2023-10-11] MEDS: Venlafaxine HCl ER 150 MG CAP.ER.24H PO (08:34)
[2023-10-11] MEDS: Thiamine HCL 100 MG TABLET PO (08:34)
[2023-10-11] MEDS: QUEtiapine Fumarate 100 MG TABLET PO ×2 (08:34→21:30)
[2023-10-11] MEDS: Folic Acid 1 MG TABLET PO (08:34)
[2023-10-11] MEDS: methADONE HCl 20 MG/2 ML ORAL.CONC 190 MG PO (08:35)
[2023-10-11 08:53] VITALS: BP 99/60; PULSE 91; TEMP 36.2; O2SAT 97
[2023-10-11 09:18] LABS: Estimated Average Glucose 100 mg/dL; Hemoglobin A1c % 5.1 % (<6.0)
[2023-10-11 09:24] LABS: Cholesterol 182 mg/dL (<200); HDL Cholesterol 41 mg/dL (>40); LDL Cholesterol Calculated 110 mg/dL (<100); Magnesium 2.4 mg/dL (1.6-2.6); Triglycerides 158 mg/dL (<150)
[2023-10-11] MEDS: Nicotine 21 MG PATCH.TD24 TRANSDERMA ×2 (09:24→16:19)
[2023-10-11 09:49] LABS: Free T4 (Free Thyroxine) 0.75 ng/dL (0.71-1.85); Thyroid Stimulating Hormone 0.22 uIU/mL (0.32-4.0)
[2023-10-11 10:01] LABS: Folate 4.5 ng/mL (> or = 4.0); Vitamin B12 277 pg/mL (200-900)
--- NOTE | 2023-10-11 10:29 | P.PNPSI_ITS ---
Subjective Subjective Date of Service: 10/11/23 Reason For Visit: PTSD, major depression,polysubstance use disorder Interim History: Met with patient; discussed with team Patient more awake and alert today and came out of his room to talk. Says he is still depressed but feeling better; SI comes and goes but passive. Patient complained of nightmares last night which he said were very vivid and content contained a lot of historically traumatic events, which he says does affect his day. Has intermittent AH which he says is primarily only present when he is alone lying down in his room, but not limited to that. Patient said that he has a good apartment to return to with furniture and which he really likes and is grateful for. Patient said that after released from custodial and prior to this admission he only relapsed 1 time. He again asked about clonazepam saying he was prescribed 2 mg t.i.d. however script writer again explained that no prescription for this amount or any amount could be found by this script writer Mental Status Exam Mental Status Exam Narrative: Pt is alert and oriented; behavior is tired, but friendly and cooperative, calm; patient is not in distress; shirtless, tattooed arms; scruffy calero, marginal hygiene; mood is described as little better and affect congruent, a little brighter; eye contact appropriate; Speech is is normal rate, volume and prosody; some psychomotor retardation present; thought process is goal directed; Thought content is on waning SI, treatment; otherwise pertinent to relevant topics and without any delusional content, paranoid ideations or grandiosity; passive SI wishes intermittent and easily dismissed; no HI. Patient endorses intermittent AH. There is no evidence of perceptual disturbance. Patients insight and judgment impaired but improving. Diagnostics Vital Signs (24Hr): Vital Signs - 24 hr 10/10/23 20:00 10/11/23 08:53 Temperature 98.4 F 97.2 F Pulse Rate 75 91 Respiratory Rate 18 Blood Pressure 113/67 99/60 Pulse Oximetry 97 97 Oxygen Delivery Method Room Air Room Air BMI result Body Mass Index 22.7 Labs 10/07/23 20:53 10/07/23 20:53 Labs: Laboratory Results - last 48 hr 10/11/23 08:46 Estimat Average Glucose 100 Hemoglobin A1c % 5.1 Magnesium 2.4 Triglycerides 158 H Cholesterol 182 LDL Cholesterol, Calc 110 H HDL Cholesterol 41 Vitamin B12 277 Folate 4.5 TSH 0.22 L Free T4 0.75 Imaging Radiology Impressions: ITS Impressions KUB X-Ray 10/07/23 18:28 IMPRESSION: Stool throughout the colon suggestive of constipation. Medications Medications Current Medications Acetaminophen (Acetaminophen 325 Mg Tablet) 650 mg PO Q6H PRN PRN Reason: Headache/Pain Mild Scale (1-3) Al Hydroxide/Mg Hydroxide (Magnesium Hydrox/Alum Hydrox 30 Ml Oral.Susp) 30 ml PO Q6H PRN PRN Reason: Heartburn/Nausea Clonazepam (Clonazepam 0.5 Mg Tablet) 0.5 mg PO TID PRN PRN Reason: Anxiety Last Admin: 10/10/23 21:26 Dose: 0.5 mg Clonidine HCl (Clonidine Hcl 0.1 Mg Tablet) 0.1 mg PO BID PRN; Protocol PRN Reason: anxiety, withdrawal Last Admin: 10/09/23 21:19 Dose: 0.1 mg Folic Acid (Folic Acid 1 Mg Tablet) 1 mg PO DAILY [facility] Last Admin: 10/11/23 08:34 Dose: 1 mg Hydroxyzine HCl (Hydroxyzine Hcl 50 Mg Tablet) 50 mg PO TID PRN PRN Reason: Anxiety Last Admin: 10/10/23 21:27 Dose: 50 mg Hydroxyzine HCl (Hydroxyzine Hcl 25 Mg Tablet) 25 mg PO Q6H PRN PRN Reason: Anxiety Magnesium Hydroxide (Milk Of Magnesia 30 Ml Oral.Susp) 30 ml PO DAILY PRN PRN Reason: Constipation Melatonin (Melatonin 3 Mg Tablet) 6 mg PO BEDTIME PRN PRN Reason: Insomnia Last Admin: 10/10/23 21:26 Dose: 6 mg Methadone HCl (Methadone Hcl 20 Mg/2 Ml Oral.Conc) 190 mg PO DAILY [facility] Last Admin: 10/11/23 08:35 Dose: 190 mg Multivitamins/Vitamin C (Multivitamin Tablet) 1 tab PO DAILY [facility] Last Admin: 10/11/23 08:34 Dose: 1 tab Nicotine (Nicotine 21 Mg Patch.Td24) 21 mg TRANSDERMA DAILY PRN PRN Reason: smoking cessation Last Admin: 10/11/23 09:24 Dose: 21 mg Prazosin HCl (Prazosin Hcl 5 Mg Capsule) 5 mg PO BEDTIME [facility]LL; Protocol Last Admin: 10/10/23 21:26 Dose: 5 mg Quetiapine Fumarate (Quetiapine Fumarate 100 Mg Tablet) 100 mg PO BID [facility] Last Admin: 10/11/23 08:34 Dose: 100 mg Quetiapine Fumarate (Quetiapine Fumarate 400 Mg Tablet) 400 mg PO BEDTIME [facility] Last Admin: 10/10/23 21:26 Dose: 400 mg Thiamine HCl (Thiamine Hcl 100 Mg Tablet) 100 mg PO DAILY [facility] Last Admin: 10/11/23 08:34 Dose: 100 mg Venlafaxine HCl (Venlafaxine Hcl Er 75 Mg Cap.Er.24h) 75 mg PO DAILY [facility] Last Admin: 10/11/23 08:34 Dose: 75 mg Venlafaxine HCl (Venlafaxine Hcl Er 150 Mg Cap.Er.24h) 150 mg PO DAILY [facility] Last Admin: 10/11/23 08:34 Dose: 150 mg Allergies Allergies Allergy/AdvReac Type Severity Reaction Status Date / Time codeine Allergy RESTLESS Verified 10/07/23 18:07 LEG trazodone Allergy Hives Verified 10/07/23 18:07 Assessment & Plan Assessment & Plan (1) Depression: Status: Acute Code(s): F32.A - Depression, unspecified (2) PTSD (post-traumatic stress disorder): Status: Acute Code(s): F43.10 - Post-traumatic stress disorder, unspecified (3) Opioid use disorder: Status: Acute Code(s): F11.90 - Opioid use, unspecified, uncomplicated (4) Polysubstance abuse: Status: Acute Code(s): F19.10 - Other psychoactive substance abuse, uncomplicated Plan pt is a 33 yo male with hx of depression, ptsd, opiate and polysubstance abuse, on methadone, who presents, recently released from custodial for parole violation, off meds for 10 days, w/drawing from opiates/cocaine/meth and reporting Depression and SI. Pt is a limited historian, tired and difficult with which to engage. He said he was getting his medications while in [facility] Term, but once released he was not given scripts. He quickly relapsed, became depressed and had vague thoughts of suicide. He wants to get back on home meds now. -denies alcohol use; received high dose of benzos in the ED, 2 mg t.i.d. hospital course: 10/09 Patient seems groggy but said he does not think so. He reports that he still depressed but a little less. He says still with SI but it is starting to clear up. Patient had nightmares last night. He wants prazosin left only 5 mg saying at higher doses it makes nightmares worse. Patient asked for clonazepam to be scheduled instead of p.r.n. and says he gets a prescription for it. Tailings Man however explained that there is no prescriptions in the [facility] since 2022; patient accepted current dose and that it will remain at a p.r.n.. So that he does not take it unnecessarily 10/10 doing better, depression getting better; still some intermittent SI/AH but not overly troublesome. plan: CV q15 continue home meds started in ed seroquel 100mg BID seroquel 400mg qhs effexor 225mg daily LOWERED Clonazepam to 0.5mg TID (ED had her on 2mg TID; he has no scripts for past year) Patient educated on: diagnosis, medication risk/benefits and substance abuse Informed Consent: understands Reason for continued inpatient stay Substantial Risk for: rapid decompensation Time Spent With Patient Time: Total time managing care of this patient today ____ minutes.
[2023-10-11 21:25] VITALS: BP 96/54; PULSE 112; TEMP 36.4
[2023-10-11] MEDS: QUEtiapine Fumarate 400 MG TABLET PO (21:29)
[2023-10-11] MEDS: Prazosin HCL 5 MG CAPSULE PO (21:30)
[2023-10-11] MEDS: clonazePAM 0.5 MG TABLET PO (21:30)
[2023-10-11] MEDS: Melatonin 3 MG TABLET 6 MG PO (21:31)
[2023-10-12 08:00] VITALS: BP 108/70; PULSE 65; RESP 16; TEMP 36.8; O2SAT 96
[2023-10-12] MEDS: Folic Acid 1 MG TABLET PO (08:36)
[2023-10-12] MEDS: QUEtiapine Fumarate 100 MG TABLET PO ×2 (08:37→21:44)
[2023-10-12] MEDS: Thiamine HCL 100 MG TABLET PO (08:37)
[2023-10-12] MEDS: Venlafaxine HCl ER 150 MG CAP.ER.24H PO (08:37)
[2023-10-12] MEDS: Venlafaxine HCl ER 75 MG CAP.ER.24H PO (08:37)
[2023-10-12] MEDS: Multivitamin TABLET 1 TAB PO (08:37)
[2023-10-12] MEDS: methADONE HCl 20 MG/2 ML ORAL.CONC 190 MG PO (08:37)
[2023-10-12] MEDS: clonazePAM 0.5 MG TABLET PO ×2 (08:53→17:53)
[2023-10-12] MEDS: Nicotine 21 MG PATCH.TD24 TRANSDERMA (08:53)
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
--- NOTE | 2023-10-12 17:00 | PC.NURSE ---
Pt is refusing to have EKG done despite explanation & encouragement to comply. Dr Joseph notified.
[2023-10-12 20:30] VITALS: BP 117/67; PULSE 77; TEMP 36.8; O2SAT 96
[2023-10-12] MEDS: Melatonin 3 MG TABLET 6 MG PO (21:42)
[2023-10-12] MEDS: Prazosin HCL 5 MG CAPSULE PO (21:43)
[2023-10-12] MEDS: QUEtiapine Fumarate 400 MG TABLET PO (21:44)
[2023-10-13 08:00] VITALS: BP 110/61; PULSE 64; RESP 20; TEMP 36.3; O2SAT 99
--- NOTE | 2023-10-13 08:49 | PM.PSYDC ---
DS: Providers Provider Date of Service: 10/13/23 Date of admission: 10/08/23 13:41 Date of discharge: 10/13/23 Primary care physician: Gertrude Physician Attending physician on admission: Peterson Joseph Attending physician on discharge: Peterson Joseph DS: Diagnosis Discharge Diagnosis (1) Depression: Status: Acute (2) PTSD (post-traumatic stress disorder): Status: Acute (3) Opioid use disorder: Status: Acute (4) Polysubstance abuse: Status: Acute DS: Medications Discharge Medications Home Medications: Home Medications ?Medication ?Instructions ?Recorded ?Confirmed hydroxyzine pamoate 50 mg capsule 50 mg PO TID PRN Anxiety 01/12/23 10/08/23 melatonin 3 mg tablet 6 mg PO BEDTIME PRN Insomnia 01/12/23 10/08/23 quetiapine 400 mg tablet 400 mg PO BEDTIME 01/12/23 10/08/23 venlafaxine 150 mg 150 mg PO DAILY 01/12/23 10/08/23 capsule,extended release 24 hr clonazepam 2 mg tablet 2 mg PO TID PRN Anxiety 03/16/23 10/08/23 methadone 10 mg/mL oral concentrate 190 mg PO DAILY 03/16/23 10/08/23 prazosin 5 mg capsule (Minipress) 5 mg PO BEDTIME insomnia 03/16/23 10/08/23 quetiapine 100 mg tablet 100 mg PO BID 03/16/23 10/08/23 venlafaxine 75 mg capsule,extended 75 mg PO DAILY 03/16/23 10/08/23 release 24 hr Mental Status Exam Mental Status Exam Narrative: Pt is alert and oriented; behavior is friendly and cooperative, calm; patient is not in distress; hospital attire tattooed arms; scruffy calero, adequate hygiene; mood is described as good and affect congruent, brighter; eye contact appropriate; Speech is is normal rate, volume and prosody; no psychomotor retardation present; thought process is goal directed; Thought content is on discharge, treatment; otherwise pertinent to relevant topics and without any delusional content, paranoid ideations or grandiosity; no SI; no HI. Patient endorses intermittent AH that is not bothersome. There is no evidence of perceptual disturbance. Patients insight and judgment fair. Data Data Completed and Pending Completed studies during hospitalization [Text1]: 10/07/23 10/08/2324 20:53 00:08 08:46 WBC 6.5 RBC 4.09 L Hgb 12.0 L Hct 35.2 L MCV 86.1 MCH 29.3 MCHC 34.1 RDW 13.2 Plt Count 203 MPV 9.3 L Immature Gran % (Auto) 0.3 Neut % (Auto) 53.2 Lymph % (Auto) 36.0 [place] % (Auto) 7.5 Eos % (Auto) 2.5 Baso % (Auto) 0.5 Lymph # (Auto) 2.4 [place] # (Auto) 0.5 Eos # (Auto) 0.2 Baso # (Auto) 0.0 Abs Immat Gran (auto) 0.02 Absolute Neuts (auto) 3.5 Absolute Nucleated RBC 0.000 Nucleated RBC % (auto) 0.0 Sodium 140 Potassium 3.6 Chloride 104 Carbon Dioxide 32 H Anion Gap 8 L BUN 5 L Creatinine 0.73 Estim Creat Clear Calc 181.5 Estimated GFR > 60 Random Glucose 83 Estimat Average Glucose 100 Hemoglobin A1c % 5.1 Calcium 8.7 D Magnesium 2.6 2.4 Total Bilirubin 0.3 AST 54 H ALT 99 H Alkaline Phosphatase 80 Total Protein 6.2 L Albumin 3.6 Triglycerides 158 H Cholesterol 182 LDL Cholesterol, Calc 110 H HDL Cholesterol 41 Lipase 12 Vitamin B12 277 Folate 4.5 TSH 0.22 L Free T4 0.75 Urine Color Yellow Urine Appearance Clear Urine pH 6.5 Ur Specific [place] <= 1.005 Urine Protein Negative Urine Glucose (UA) Negative Urine Ketones Negative Urine Blood Negative Urine Nitrite Negative Ur Leukocyte Esterase Negative Salicylates < 5.0 L Urine Opiates Screen Not Detected Ur Buprenorphine Scrn Not Detected Ur Oxycodone Screen Not Detected Urine Methadone Screen Positive Urine Fentanyl Screen POSITIVE H Ur Barbiturates Screen Not Detected Ur Phencyclidine Scrn Not Detected Ur Amphetamines Screen Not Detected U Benzodiazepines Scrn POSITIVE H Urine Cocaine Screen POSITIVE H U Marijuana (THC) Screen POSITIVE H Ethyl Alcohol < 10 COVID-19 ([facility]) Negative COVID-19 Clin Com See Note Imaging Diagnostic Imaging Impressions KUB X-Ray 10/07/23 18:28 IMPRESSION: Stool throughout the colon suggestive of constipation. DS: Summary Hospital Course Hospital Course: pt is a 33 yo male with hx of depression, ptsd, opiate and polysubstance abuse, on methadone, who presents, recently [facility], off meds for 10 days, w/drawing from opiates/cocaine/meth and reporting Depression and SI. Pt is a limited historian, tired and difficult with which to engage. He said he was getting his medications while in [facility], but once released he was not given scripts. He quickly relapsed, became depressed and had vague thoughts of suicide. He wants to get back on home meds now. -denies alcohol use; received high dose of benzos in the ED, 2 mg t.i.d. but otherwise no scripts for benzo's since 04/23/23. balcony worker talked with patient's PO: Patient was jailed for 24 days for parole violation due to substance abuse. This past week before this admission he was again found in violation of parole due to substance abuse and was told by the actor understudy he either had to go to the hospital for substance abuse treatment or [facility] and thus patient self presented. hospital course: 10/09 Patient seems groggy but said he does not think so. He reports that he still depressed but a little less. He says still with SI but it is starting to clear up. Patient had nightmares last night. He wants prazosin left only 5 mg saying at higher doses it makes nightmares worse. Patient asked for clonazepam to be scheduled instead of p.r.n. and says he gets a prescription for it. Supervisor Histology however explained that there is no prescriptions in the [facility] since 2022; patient accepted current dose and that it will remain at a p.r.n.. So that he does not take it unnecessarily 10/10 doing better, depression getting better; still some intermittent SI/AH but not overly troublesome. 10/11 patient reports that his mood is better, no SI and only a little bit of AH that has not bothersome. Patient asked for discharge feeling ready to go home. He asks for more clonazepam but settles for Seroquel p.r.n. instead. Supervisor Histology ordered EKG and it was explained to patient the need to monitor for QTC given medication regimen however he politely refused. -regarding diagnosis, at this time was too difficult to tease out whether or not AH is simply mood congruent and due to depression, PTSD verses whether he has organic psychotic disorder. Chart has him listed as depression so will continue that diagnosis for now. Patient asking for discharge. He is at baseline and while he remains at risk for relapse and decompensation, this is a chronic struggle for him, one that will not change with longer time on an inpatient unit. He is appropriate to return to the community for treatment; he is not in imminent risk for harm to self or others and request for discharge honored. Time spent discussing smoking cessation with patient: 3 to 10 minutes Status at Discharge Functional status at discharge: independent ambulation Overall status at discharge: patient is back to baseline Time Spent with Patient Time attestation: Total time managing care of this patient today 35____ minutes. 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 open-access accommodates same-day, walk-in visits for outpatient and crisis services. Open Thursday/Thursday 8am?5pm; Thursday/Thursday/ 8am?6pm; Every Second & Fourth Saturdays 9am?1pm ) Physician,None [Primary Care Provider] - 1 Week Discharge Medications: New nicotine 21 mg/24 hr Patch 24 Hour 21 mg transdermal DAILY PRN (Reason: smoking cessation) 28 Days Qty: 28 0RF clonazepam 0.5 mg Tablet 0.5 mg PO TID PRN (Reason: Anxiety) 7 Days Qty: 21 0RF Continued venlafaxine 75 mg capsule,extended release 24hr 75 mg PO DAILY 30 Days Qty: 30 0RF Rx Instructions: Take one 75mg capsule with one 150mg capsule for a total dose of 225mg venlafaxine 150 mg Capsule,Extended Release 24hr 150 mg PO DAILY 30 Days Qty: 30 0RF Rx Instructions: Take one capsule PO once daily with a 75mg for total dose 225mg hydroxyzine pamoate 50 mg Capsule 50 mg PO TID PRN (Reason: Anxiety) 30 Days Qty: 60 0RF melatonin 3 mg Tablet 6 mg PO BEDTIME PRN (Reason: Insomnia) 30 Days Qty: 60 0RF prazosin [Minipress] 5 mg capsule 5 mg PO BEDTIME 30 Days Qty: 30 0RF quetiapine 400 mg Tablet 400 mg PO BEDTIME 30 Days Qty: 30 0RF methadone 10 mg/mL Concentrate 190 mg PO DAILY Changed quetiapine 100 mg tablet See Rx Instructions .ROUTE .COMPLEX 30 Days Qty: 90 0RF Rx Instructions: Take 1 tab b.i.d.; may take additional tab daily as needed for anxiety Discontinued clonazepam 2 mg tablet 2 mg PO TID PRN (Reason: Anxiety) Rx Instructions: Prescription filled on 03/10 for 90 Tablets. Bottle is empty upon arrival to hospital 03/16 PT still presenting empty bottle from 03/10. Discharge Orders: Discharge Order (Routine); Ordered 10/13/23 Ordered By: Peterson Joseph Diet: Regular diet Activity on Discharge: As tolerated Stand Alone Forms: Patient Portal Discharge page Print Language: [place] Care Plan Goals: Maintain mood and safe behaviors Take medications as prescribed Continue to pursue sobriety Practice coping skills Continue with outpatient providers and reach out to them as needed Health Concerns: Mood stability and behaviors Sobriety Plan of Treatment: Follow up with your PCP, psychiatric provider and other outpatient providers regarding above concerns Take medications as prescribed Assessment: Risk assessment at time of discharge:? Patient was interviewed prior to discharge and found to be fully oriented and without any SI or HI. Patient has improved insight and judgment and wants to continue treatment. Patient is not in imminent risk of harm to self or others and has a safety plan that includes presenting to the closest ER or calling 911 if feeling unsafe.? Patient has been observed closely by nursing and unit staff throughout admission; patient has not engaged in any behaviors that suggest dangerousness to self or others and has demonstrated appropriate behaviors and impulse control
[2023-10-13] MEDS: Venlafaxine HCl ER 75 MG CAP.ER.24H PO (09:04)
[2023-10-13] MEDS: Venlafaxine HCl ER 150 MG CAP.ER.24H PO (09:04)
[2023-10-13] MEDS: Folic Acid 1 MG TABLET PO (09:04)
[2023-10-13] MEDS: QUEtiapine Fumarate 100 MG TABLET PO (09:05)
[2023-10-13] MEDS: methADONE HCl 20 MG/2 ML ORAL.CONC 190 MG PO (09:05)
[2023-10-13] MEDS: Multivitamin TABLET 1 TAB PO (09:05)
[2023-10-13] MEDS: Thiamine HCL 100 MG TABLET PO (09:05)
[2023-10-13] MEDS: clonazePAM 0.5 MG TABLET PO (09:13)
[2023-10-13] MEDS: Naloxone HCl Nasal TAKE HOME 4 MG SPRAY 8 MG NOSTRILALT (09:13)
== END 2023-10-13 10:35 | disposition home or self-care (01) | DRG 751 ==
LOC: HO.ED 10-08 08:26 → HO.PM5 10-08 14:42
PROVIDERS: Physician Assistant Medical; Admitting Provider Clinical Nurse Specialist Psychiatric/Mental Health, Adult; Emergency Provider Emergency Medicine Emergency Medical Services; Visit Provider Psychiatry & Neurology Psychiatry
DX: F33.3 Major depressive disorder, recurrent, severe with psychotic symptoms (principal); R45.851 Suicidal ideations; F11.20 Opioid dependence, uncomplicated; F43.10 Post-traumatic stress disorder, unspecified; F41.1 Generalized anxiety disorder; F17.210 Nicotine dependence, cigarettes, uncomplicated; Z71.6 Tobacco abuse counseling; Z91.51 Personal history of suicidal behavior; Z59.02 Unsheltered homelessness; Z20.822 Contact with and (suspected) exposure to COVID-19; Z79.899 Other long term (current) drug therapy
CPT/HCPCS: 36415; 74018; 80053; 80061; 80179; 80307; 81003; 82607; 82746; 83036; 83690; 83735; 84439; 84443; 85025; 87635; 93005; 99285; S9485

== ENCOUNTER → 2023-10-08 11:02 | Outpatient (BNV) | payer MEDICAID, SELFPAY | PROVIDERS: Admitting Provider Clinical Nurse Specialist Psychiatric/Mental Health, Adult; Emergency Provider Emergency Medicine Emergency Medical Services; Visit Provider Internal Medicine | DX: R00.1 Bradycardia, unspecified (principal) | CPT/HCPCS: 93010 ==

== ENCOUNTER → 2023-10-08 13:41 | Outpatient (BNV) | payer SELFPAY | PROVIDERS: Admitting Provider Clinical Nurse Specialist Psychiatric/Mental Health, Adult; Emergency Provider Emergency Medicine Emergency Medical Services; Visit Provider Psychiatry & Neurology Psychiatry | DX: F33.3 Major depressive disorder, recurrent, severe with psychotic symptoms (principal); F19.10 Other psychoactive substance abuse, uncomplicated; F43.11 Post-traumatic stress disorder, acute; F11.90 Opioid use, unspecified, uncomplicated | CPT/HCPCS: 99231; 99232 ==

== ENCOUNTER 2024-01-22 00:28 | Inpatient (IN) | payer OTHER, SELFPAY ==
--- NOTE | 2024-01-22 | ECG_ITS ---
Test Reason : r/o QTC Prolongation Blood Pressure : / mmHG Vent. Rate : 061 BPM Atrial Rate : 061 BPM P-R Int : 150 ms QRS Dur : 094 ms QT Int : 428 ms P-R-T Axes : 025 074 057 degrees QTc Int : 430 ms Normal sinus rhythm with sinus arrhythmia Normal ECG When compared with ECG of 08-OCT-2023 11:05, No significant change was found Referred By: Kimmie Wynn Electronically Signed By:Ritchie Cifuentes
[2024-01-22 00:31] VITALS: BP 134/96; PULSE 105; RESP 18; TEMP 37.2; O2SAT 97; BMI 22.0
[2024-01-22 01:00] LABS: MANUAL DIFF FLAG NO
[2024-01-22 01:01] LABS: Basophils Percent Auto 0.4 % (0-2); Eosinophils Percent Auto 0.1 % (0-4); Hematocrit 43.9 % (42.0-52.0); Hemoglobin 15.4 g/dl (14.0-18.0); Imm Gran Abs Auto 0.02 X10*3/uL (0.00-0.03); Imm Gran Pct Auto 0.3 % (0.0-0.4); Lymphocytes Absolute Auto 1.4 X10*3/uL (1.2-4.9); Lymphocytes Percent Auto 19.3 % (20-40); Mean Corpuscular HGB Conc 35.1 g/dl (31.0-36.0); Mean Corpuscular Volume 85.6 fL (80.0-98.0); Mean Platelet Volume 9.3 fL (9.4-12.4); Monocytes Absolute Auto 0.6 X10*3/uL (0.1-1.2); Monocytes Percent Auto 8.4 % (2-11); Neutrophils Absolute Auto 5.3 x10*3/uL (2.0-8.3); Neutrophils Percent Auto 71.5 % (45-73); Platelet Count 300 X10*3/uL (160-400); Red Blood Count 5.13 X10*6/uL (4.60-5.80); Red Cell Distribution Width 12.8 % (11.0-16.0); White Blood Count 7.5 X10*3/uL (4.8-10.8)
[2024-01-22 01:13] LABS: Ethanol < 10 mg/dL
[2024-01-22 01:16] LABS: Alanine Aminotransferase 30 U/L (0-40); Albumin Level 4.9 g/dL (3.5-5.0); Alkaline Phosphatase 82 U/L (39-117); Anion Gap 15 (12-20); Aspartate Amino Transferase 22 U/L (5-37); Bilirubin Total 0.8 mg/dL (0.0-1.0); Blood Urea Nitrogen 10 mg/dL (9-16); Calcium 10.6 mg/dL (8.4-10.2); Carbon Dioxide 25 mmol/L (22-29); Chloride 105 mmol/L (96-108); Creatinine Clr Calc Pharmacy 140.7; Estimated Glomerular Filt Rate > 60; Glucose Random 88 mg/dL (60-115); Potassium 3.6 mmol/L (3.3-5.1); Sodium 141 mmol/L (135-145)
--- NOTE | 2024-01-22 01:26 | ED.GENADULT ---
HPI - General Adult General Chief complaint: Psychiatric Symptoms Stated complaint: crisis Time Seen by Provider: 01/22/24 00:42 Source: patient, RN notes reviewed and old records reviewed Mode of arrival: ambulatory Limitations: no limitations History of Present Illness ED Provider: Phan GARCIA narrative: 33-year-old male past medical history significant for PTSD, anxiety, depression, substance abuse presents for evaluation of suicidal ideation. Patient reports increased suicidal ideation for the last week pain He reports a plan to take ?as many pills as that can. ? He endorses having anxiety and depression about his current living situation because he does not feel safe He states that he has no physical complaints and ?I feel pretty good. He reports he has been noncompliant with his medications since April Related Data Home Medications ?Medication ?Instructions ?Recorded ?Confirmed No Known Home Meds 01/22/24 01/22/24 Allergies Allergy/AdvReac Type Severity Reaction Status Date / Time codeine Allergy RESTLESS Verified 01/22/24 00:32 LEG trazodone Allergy Hives Verified 01/22/24 00:32 Review of Systems Constitutional: Constitutional: Denies body ache(s), Denies chills, Denies fever(s) and Denies frequent falls Eyes: Eyes: Denies blurry vision ENT: Denies vertigo Cardiovascular: Cardiovascular: Denies chest pain and Denies dyspnea Respiratory: Respiratory: Denies cough and Denies dyspnea Gastrointestinal: Gastrointestinal: Denies abdominal pain, Denies nausea and Denies vomiting Musculoskeletal: Musculoskeletal: Denies back pain Integumentary/Breasts: Skin/Breast: Denies rash Neurologic: Denies vertigo and Denies frequent falls Psychiatric: Psychiatric: Reports anxiety, Reports depression, Denies auditory hallucinations, Denies visual hallucinations, Denies homicidal ideation and Reports suicidal ideation COUNTS INCLUDE 234 BEDS AT THE [facility] Past Medical History Medical History Chronic schizophrenia Depression with suicidal ideation Bipolar disorder Social History Social History Household Members: None Housing: Other Housing Other:: [facility] Do you presently have visiting nurse or other home services: No Unable to assess alcohol history related to: Unknown Alcohol intake: never Patient Tobacco Use Status: Current everyday Tobacco user Tobacco use type: Cigarette Cigarette Packs Per Day: 1.5 Cigarettes Per Day: 30.0 Years Smoked: unknown e-Cigarette/Vaping Use: Currently Using Second Hand Smoke Exposure: Yes Substance Use Type: Marijuana and Opiates Advance Directives: No Advance Directives Information Provided: Yes Do you have a plan to hurt others: No Plan service: No Sexual orientation: Straight/Heterosexual Physical Exam ED Vital Signs: Vital Signs - 24 hr 01/22/24 00:31 Temperature 98.9 F Pulse Rate 105 H Respiratory Rate 18 Blood Pressure 134/96 H Pulse Oximetry 97 Oxygen Delivery Method Room Air BMI result Body Mass Index 22.0 Const General: healthy appearing, comfortable, no acute distress, alert and awake Nutritional Appearance: well nourished Orientation/consciousness: patient oriented x3 HENMT Head: Yes normocephalic and Yes atraumatic Eyes Eyelids: Yes eyelids normal Conjunctivae: conjunctivae normal Sclerae: sclerae normal Corneas: corneas normal Pupils: Equal, round and reactive pupils present EOM: EOMs intact bilaterally Neck Neck: Yes full ROM Resp Effort & Inspection: normal respiratory effort, able to speak in complete sentences and not labored GI Inspection: No distended Palpation (GI): Soft to palpation, not firm, nontender, no guarding and not rigid Skin General skin exam: elasticity normal Neuro General: patient oriented x3 Cranial nerves: Yes Equal, round and reactive pupils present and Yes Bilaterally intact EOM present Cognition (Neuro): normal cognition Extrem Other: Moving all extremities well without any obvious deformities Medical Decision Making Medical Decision Making MDM Narrative: 33-year-old male presents for evaluation of suicide ideation. Plan for medical workup and care team evaluation once cleared he has no somatic complaints at this time, vital signs are stable Differential Diagnosis Differential Diagnoses: The differential diagnosis associated with the presentation includes Depression Anxiety Suicide ideation Polysubstance abuse Lab Data [facility] Lab Attestation statement: I reviewed the patient's lab results. Patient has no leukocytosis. No significant anemia. Normal platelet count. No electrolyte abnormalities requiring intervention. 01/22/24 00:57 01/22/24 00:57 Labs: Lab Results 01/22/24 Range/Units 00:57 WBC 7.5 (4.8-10.8) X10*3/uL RBC 5.13 D (4.60-5.80) X10*6/uL Hgb 15.4 D (14.0-18.0) g/dl Hct 43.9 D (42.0-52.0) % MCV 85.6 (80.0-98.0) fL MCH 30.0 (27.0-33.0) pg MCHC 35.1 (31.0-36.0) g/dl RDW 12.8 (11.0-16.0) % Plt Count 300 D (160-400) X10*3/uL MPV 9.3 L (9.4-12.4) fL Immature Gran % (Auto) 0.3 (0.0-0.4) % Neut % (Auto) 71.5 (45-73) % Lymph % (Auto) 19.3 L (20-40) % [place] % (Auto) 8.4 (2-11) % Eos % (Auto) 0.1 (0-4) % Baso % (Auto) 0.4 (0-2) % Lymph # (Auto) 1.4 (1.2-4.9) X10*3/uL [place] # (Auto) 0.6 (0.1-1.2) X10*3/uL Eos # (Auto) 0.0 (0.0-0.4) X10*3/uL Baso # (Auto) 0.0 (0.0-0.2) X10*3/uL Abs Immat Gran (auto) 0.02 (0.00-0.03) X10*3/uL Absolute Neuts (auto) 5.3 (2.0-8.3) x10*3/uL Absolute Nucleated RBC 0.000 (0.0-0.012) X10*3/uL Nucleated RBC % (auto) 0.0 (0.0-0.2) /100WBC Sodium 141 (135-145) mmol/L Potassium 3.6 (3.3-5.1) mmol/L Chloride 105 (96-108) mmol/L Carbon Dioxide 25 (22-29) mmol/L Anion Gap 15 (12-20) BUN 10 (9-16) mg/dL Creatinine 0.91 (0.5-1.4) mg/dL Estim Creat Clear Calc 140.7 Estimated GFR > 60 Random Glucose 88 (60-115) mg/dL Calcium 10.6 H D (8.4-10.2) mg/dL Total Bilirubin 0.8 (0.0-1.0) mg/dL AST 22 (5-37) U/L ALT 30 (0-40) U/L Alkaline Phosphatase 82 (39-117) U/L Total Protein 9.0 H (6.5-8.0) g/dL Albumin 4.9 (3.5-5.0) g/dL Ethyl Alcohol < 10 mg/dL Discharge Plan Discharge Clinical Impression: Depression with suicidal ideation Patient Disposition: Still a Patient Prescriptions: No Action No Known Home Meds Print Language: Yoruba
[2024-01-22 04:03] LABS: Appearance Urine Cloudy; Color Urine Dark Yellow; Glucose Urine UA Negative (Negative); Leukocyte Esterase Urine Negative (Negative); Nitrite Urine Negative (Negative); PH 5.5 (5.0-9.0); Specific Gravity - Urine 1.025 (1.005-1.025); UMIC TRIGGER UA YES; Urine Blood Negative (Negative); Urine Ketones Trace mg/dL (Negative); Urine Protein 30 (1+) mg/dL (Neg-Trace)
[2024-01-22 04:13] LABS: Bacteria Urine None Seen (None Seen); Calcium Oxalate Crystals Urine Present; Squamous Epithelial Cell Urine 0-2 /HPF (0-2); WBC Urine 0-5 /HPF (0-5)
[2024-01-22 04:14] LABS: Amphetamine Screen Urine Not Detected (Not Detect); Barbiturates, Urine Not Detected (Not Detect); Benzodiazepines Screen Urine POSITIVE (Not Detect); Buprenorphine Scr Not Detected (Not Detect); Cannabinoid Screen Urine POSITIVE (Not Detect); Cocaine Screen Urine POSITIVE (Not Detect); Fentanyl, urine POSITIVE (Not Detect); Methadone Screen, Urine Positive (Not Detect); Opiate Screen Urine POSITIVE (Not Detect); Oxycodone Screen Urine Not Detected (Not Detect); Phencyclidine Screen Urine Not Detected (Not Detect)
[2024-01-22 06:00] VITALS: BP 118/77; PULSE 60; RESP 16; TEMP 36.7; O2SAT 99
--- NOTE | 2024-01-22 06:42 | HE.PHANOTE ---
Addendum entered by Greta Paredes [facility] 01/22/24 06:48: NOTE from nurse includes that N said Per [facility] clinic his dose should be 185mg because he missed dose for 5 days. Original Note: METHADONE Dose: 190mg, last dosed on 01/16/24 @0854 per Yaneth VEGAS at [facility]/redding.
--- NOTE | 2024-01-22 07:19 | PC.NURSE ---
Assumed care of patient at 0645, patient appears to be in no apparent distress this am, watching TV, offering no complaints. Continue plan of care for inpt bedsearch
[2024-01-22] MEDS: methADONE HCl 20 MG/2 ML ORAL.CONC 100 MG PO (09:43)
--- NOTE | 2024-01-22 13:02 | PC.NURSE ---
RN to RN report given to Yazmin, patient to be transported upstairs to w/ security assistance.
[2024-01-22 13:21] VITALS: BP 131/94; PULSE 68; RESP 15; TEMP 36.7; O2SAT 98
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
--- NOTE | 2024-01-22 15:23 | MHC.CLN ---
RE: CONSULT FOR WT LOSS HT 6'6 WT 78.6KG AND 86.1KG BOTH WT REPORTED (01/22/24) IBW 214#+/-10% PREVIOUS WT HX REVEALS 99.6KG (01/12/23) PT REPORTS 30# WT LOSS X2 MONTHS PT REQUIRES A RE-WEIGHT DUE TO ADMISSION WT DISCREPANCIES (SEE ABOVE) ALSO NOTE PT POSITIVE FOR POLYSUBSTANCE ABUSE WHICH MAY BE CONTRIBUTOR TO RECENT WT LOSS PT DOES NOT APPEAR MALNOURISHED AT THIS TIME REVIEWED LABS ALBUMIN WNL DIET RX: REGULAR-APPROPRIATE RECOMMEND ADDING ENSURE BID TO INCREASE KCALS SUPP TO PROVIDE 700KCALS, 40G PROTEIN REWEIGH PT FOR ACCURATE ASSESSMENT THEN WEEKLY WTS TO TRACK PROGRESS
--- NOTE | 2024-01-22 17:37 | PC.NURSE ---
This senior mortgage underwriter spoke to nursing staff at [facility]. Staff stated that the last time this pt received a dose from them was 01/16/24 at 190mg. This senior mortgage underwriter let provider know.
--- NOTE | 2024-01-22 18:21 | HE.PHANOTE ---
METHADONE Pt receives from [facility] ([phone]). Patient last received 100mg 01/22/24 0943. RN did not catch name while speaking at facility.
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
[2024-01-22 20:00] VITALS: BP 112/66; PULSE 60; RESP 18; TEMP 37.1; O2SAT 95
[2024-01-22] MEDS: QUEtiapine Fumarate 400 MG TABLET PO (20:46)
[2024-01-22] MEDS: QUEtiapine Fumarate 100 MG TABLET PO (20:46)
[2024-01-23] MEDS: methADONE HCl 20 MG/2 ML ORAL.CONC 150 MG PO (07:36)
[2024-01-23 07:56] VITALS: BP 110/62; PULSE 73; RESP 16; TEMP 36.8; O2SAT 94
[2024-01-23] MEDS: Thiamine HCL 100 MG TABLET PO (09:17)
[2024-01-23] MEDS: Folic Acid 1 MG TABLET PO (09:17)
[2024-01-23] MEDS: QUEtiapine Fumarate 100 MG TABLET PO ×2 (09:17→21:21)
[2024-01-23] MEDS: Multivitamin TABLET 1 TAB PO (09:17)
[2024-01-23] MEDS: Venlafaxine HCl ER 37.5 MG CAP.ER.24H PO (09:17)
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
[2024-01-23 20:00] VITALS: PULSE 101; RESP 16; TEMP 36.2; O2SAT 98
[2024-01-23] MEDS: QUEtiapine Fumarate 400 MG TABLET PO (21:21)
[2024-01-23] MEDS: Nicotine Polacrilex 2 MG GUM 4 MG BUCCAL (21:22)
[2024-01-23] MEDS: OLANZapine 5 MG TABLET PO (21:22)
[2024-01-23] MEDS: hydrOXYzine HCL 25 MG TABLET PO (21:23)
[2024-01-24] MEDS: methADONE HCl 20 MG/2 ML ORAL.CONC 150 MG PO (07:46)
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
[2024-01-24 08:46] VITALS: BP 118/69; PULSE 63; RESP 16; TEMP 36.4; O2SAT 97
[2024-01-24] MEDS: QUEtiapine Fumarate 100 MG TABLET PO ×2 (08:58→20:19)
[2024-01-24] MEDS: hydrOXYzine HCL 25 MG TABLET PO (08:58)
[2024-01-24] MEDS: Thiamine HCL 100 MG TABLET PO (08:58)
[2024-01-24] MEDS: Multivitamin TABLET 1 TAB PO (08:58)
[2024-01-24] MEDS: Venlafaxine HCl ER 37.5 MG CAP.ER.24H PO (08:58)
[2024-01-24] MEDS: Folic Acid 1 MG TABLET PO (08:59)
[2024-01-24 20:00] VITALS: BP 128/74; PULSE 72; RESP 16; TEMP 36.5; O2SAT 98
[2024-01-24] MEDS: QUEtiapine Fumarate 400 MG TABLET PO (20:20)
[2024-01-25] MEDS: methADONE HCl 20 MG/2 ML ORAL.CONC 150 MG PO (07:58)
[2024-01-25 08:00] VITALS: BP 100/59; PULSE 64; RESP 16; TEMP 36.9; O2SAT 97
[2024-01-25] MEDS: Multivitamin TABLET 1 TAB PO (08:46)
[2024-01-25] MEDS: QUEtiapine Fumarate 100 MG TABLET PO ×2 (08:46→21:03)
[2024-01-25] MEDS: Venlafaxine HCl ER 37.5 MG CAP.ER.24H PO (08:46)
[2024-01-25] MEDS: Thiamine HCL 100 MG TABLET PO (08:46)
[2024-01-25] MEDS: Folic Acid 1 MG TABLET PO (08:46)
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
[2024-01-25 20:00] VITALS: BP 126/64; PULSE 62; RESP 16; TEMP 36.8; O2SAT 96
[2024-01-25] MEDS: QUEtiapine Fumarate 400 MG TABLET PO (21:03)
[2024-01-25] MEDS: Nicotine 21 MG PATCH.TD24 TRANSDERMA (21:27)
[2024-01-26] MEDS: methADONE HCl 20 MG/2 ML ORAL.CONC 150 MG PO (07:56)
[2024-01-26 08:00] VITALS: BP 130/63; PULSE 68; RESP 16; TEMP 36.5; O2SAT 95
[2024-01-26] MEDS: Nicotine 21 MG PATCH.TD24 TRANSDERMA (08:28)
[2024-01-26] MEDS: QUEtiapine Fumarate 100 MG TABLET PO ×2 (08:29→22:57)
[2024-01-26] MEDS: Folic Acid 1 MG TABLET PO (08:29)
[2024-01-26] MEDS: Thiamine HCL 100 MG TABLET PO (08:29)
[2024-01-26] MEDS: hydrOXYzine HCL 25 MG TABLET PO ×2 (08:29→22:57)
[2024-01-26] MEDS: Multivitamin TABLET 1 TAB PO (08:29)
[2024-01-26] MEDS: OLANZapine 5 MG TABLET PO ×2 (12:41→22:57)
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
[2024-01-26 22:45] VITALS: BP 116/72; PULSE 69; RESP 16; TEMP 36.8; O2SAT 100
[2024-01-26] MEDS: QUEtiapine Fumarate 400 MG TABLET PO (22:57)
[2024-01-27] MEDS: methADONE HCl 20 MG/2 ML ORAL.CONC 150 MG PO (07:46)
[2024-01-27 08:00] VITALS: BP 108/71; PULSE 79; TEMP 36.8; O2SAT 96
[2024-01-27] MEDS: Multivitamin TABLET 1 TAB PO (09:06)
[2024-01-27] MEDS: QUEtiapine Fumarate 100 MG TABLET PO ×2 (09:06→21:11)
[2024-01-27] MEDS: Thiamine HCL 100 MG TABLET PO (09:06)
[2024-01-27] MEDS: hydrOXYzine HCL 25 MG TABLET PO (09:06)
[2024-01-27] MEDS: Folic Acid 1 MG TABLET PO (09:06)
[2024-01-27] MEDS: Nicotine 21 MG PATCH.TD24 TRANSDERMA (09:06)
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
[2024-01-27 20:00] VITALS: BP 120/71; PULSE 74; RESP 16; TEMP 36.6; O2SAT 96
[2024-01-27] MEDS: QUEtiapine Fumarate 400 MG TABLET PO (21:11)
[2024-01-27] MEDS: OLANZapine 5 MG TABLET PO (21:11)
[2024-01-28] MEDS: methADONE HCl 20 MG/2 ML ORAL.CONC 150 MG PO (07:43)
[2024-01-28 07:56] VITALS: BP 128/82; PULSE 78; RESP 16; TEMP 36.7; O2SAT 96
[2024-01-28] MEDS: Thiamine HCL 100 MG TABLET PO (08:47)
[2024-01-28] MEDS: Nicotine 21 MG PATCH.TD24 TRANSDERMA (08:47)
[2024-01-28] MEDS: Folic Acid 1 MG TABLET PO (08:48)
[2024-01-28] MEDS: hydrOXYzine HCL 25 MG TABLET PO (08:48)
[2024-01-28] MEDS: QUEtiapine Fumarate 100 MG TABLET PO ×2 (08:48→21:25)
[2024-01-28] MEDS: Multivitamin TABLET 1 TAB PO (08:48)
[2024-01-28] MEDS: chlorproMAZINE HCl 25 MG TABLET 50 MG PO (15:49)
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
[2024-01-28 20:00] VITALS: BP 123/70; PULSE 123; TEMP 35.9; O2SAT 98
[2024-01-28] MEDS: QUEtiapine Fumarate 400 MG TABLET PO (21:25)
[2024-01-29] MEDS: methADONE HCl 20 MG/2 ML ORAL.CONC 150 MG PO (07:52)
[2024-01-29 08:00] VITALS: BP 109/77; PULSE 80; TEMP 36.6; O2SAT 96
[2024-01-29] MEDS: QUEtiapine Fumarate 100 MG TABLET PO (09:04)
[2024-01-29] MEDS: Folic Acid 1 MG TABLET PO (09:04)
[2024-01-29] MEDS: Multivitamin TABLET 1 TAB PO (09:04)
[2024-01-29] MEDS: Thiamine HCL 100 MG TABLET PO (09:04)
[2024-01-29] MEDS: hydrOXYzine HCL 25 MG TABLET PO (09:11)
[2024-01-29] MEDS: chlorproMAZINE HCl 25 MG TABLET 50 MG PO (09:11)
[2024-01-29] MEDS: Nicotine 21 MG PATCH.TD24 TRANSDERMA (09:11)
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
== END 2024-01-29 11:57 | disposition other institution (70) | DRG 751 ==
LOC: HO.ED 09:25 → HO.PM5 12:41
PROVIDERS: Physician Assistant; Admitting Provider Psychiatry & Neurology Psychiatry; Emergency Provider Emergency Medicine; Visit Provider Psychiatry & Neurology Psychiatry
DX: F33.3 Major depressive disorder, recurrent, severe with psychotic symptoms (principal); R45.851 Suicidal ideations; Z91.148 Patient's other noncompliance with medication regimen for other reason; F14.10 Cocaine abuse, uncomplicated; F43.10 Post-traumatic stress disorder, unspecified; F11.20 Opioid dependence, uncomplicated; Z79.899 Other long term (current) drug therapy
CPT/HCPCS: 36415; 80053; 80307; 81001; 85025; 93005; 99285; S9485

== ENCOUNTER → 2024-01-22 07:38 | Outpatient (BNV) | payer MEDICAID, SELFPAY | PROVIDERS: Admitting Provider Psychiatry & Neurology Psychiatry; Emergency Provider Emergency Medicine; Visit Provider Internal Medicine Cardiovascular Disease | DX: F43.10 Post-traumatic stress disorder, unspecified (principal); F33.3 Major depressive disorder, recurrent, severe with psychotic symptoms | CPT/HCPCS: 93010 ==

== ENCOUNTER → 2024-01-22 12:15 | Outpatient (BNV) | payer OTHER, SELFPAY | PROVIDERS: Admitting Provider Psychiatry & Neurology Psychiatry; Emergency Provider Emergency Medicine; Visit Provider Psychiatry & Neurology Psychiatry | DX: F33.3 Major depressive disorder, recurrent, severe with psychotic symptoms (principal); F43.11 Post-traumatic stress disorder, acute; F11.90 Opioid use, unspecified, uncomplicated | CPT/HCPCS: 99231; 99232; 99233 ==

== ENCOUNTER 2024-08-19 10:38 | Inpatient (IN) | payer MEDICAID, OTHER, SELFPAY ==
[2024-08-19 10:45] VITALS: BP 108/77; PULSE 111; RESP 18; TEMP 37.2; O2SAT 97; BMI 23.5
[2024-08-19 11:20] VITALS: RESP 16
[2024-08-19 11:42] LABS: MANUAL DIFF FLAG NO
[2024-08-19 11:46] LABS: Basophils Percent Auto 0.6 % (0-2); Eosinophils Percent Auto 0.8 % (0-4); Hematocrit 39.2 % (42.0-52.0); Hemoglobin 13.2 g/dl (14.0-18.0); Imm Gran Abs Auto 0.01 X10*3/uL (0.00-0.03); Imm Gran Pct Auto 0.2 % (0.0-0.4); Lymphocytes Absolute Auto 1.1 X10*3/uL (1.2-4.9); Lymphocytes Percent Auto 21.6 % (20-40); Mean Corpuscular HGB Conc 33.7 g/dl (31.0-36.0); Mean Corpuscular Hemoglobin 29.9 pg (27.0-33.0); Mean Corpuscular Volume 88.7 fL (80.0-98.0); Mean Platelet Volume 9.3 fL (9.4-12.4); Monocytes Absolute Auto 0.6 X10*3/uL (0.1-1.2); Monocytes Percent Auto 11.2 % (2-11); Neutrophils Absolute Auto 3.2 x10*3/uL (2.0-8.3); Neutrophils Percent Auto 65.6 % (45-73); Platelet Count 258 X10*3/uL (160-400); Red Blood Count 4.42 X10*6/uL (4.60-5.80); Red Cell Distribution Width 12.5 % (11.0-16.0); White Blood Count 4.9 X10*3/uL (4.8-10.8)
[2024-08-19 12:04] LABS: Alanine Aminotransferase 192 U/L (0-40); Albumin Level 4.3 g/dL (3.5-5.0); Alkaline Phosphatase 87 U/L (39-117); Anion Gap 15 (12-20); Aspartate Amino Transferase 49 U/L (5-37); Bilirubin Total 0.3 mg/dL (0.0-1.0); Blood Urea Nitrogen 5 mg/dL (9-16); Calcium 9.8 mg/dL (8.4-10.2); Carbon Dioxide 20 mmol/L (22-29); Chloride 108 mmol/L (96-108); Creatinine Clr Calc Pharmacy 160.1; Estimated Glomerular Filt Rate > 60; Ethanol < 10 mg/dL; Glucose Random 161 mg/dL (60-115); Potassium 3.6 mmol/L (3.3-5.1); Sodium 139 mmol/L (135-145); Total Protein 7.8 g/dL (6.5-8.0)
[2024-08-19 12:05] LABS: Appearance Urine Clear; Color Urine Yellow; Glucose Urine UA Negative (Negative); Leukocyte Esterase Urine Negative (Negative); Nitrite Urine Negative (Negative); Specific Gravity - Urine <= 1.005 (1.005-1.025); Urine Blood Negative (Negative); Urine Ketones Negative (Negative); Urine Protein Negative (Neg-Trace)
--- NOTE | 2024-08-19 12:05 | PC.NURSE ---
Harish comes in to the ED today reporting that he needs his medications changed. He reports SI with multiple plans such as stabbing/shooting himself, jumping in front of a truck or overdosing. He reports that his medications make him too sleepy and he cannot operate heavy machinery while sleepy. Patient comes in an immediately asks for food/drink and when provided he immediately starts asking for more. Limits on food were placed and patient became frustrated, reporting that he hasn't eaten since yesterday and he believes it is unfair that he cannot have as much food as he asks for
--- NOTE | 2024-08-19 12:08 | MHC.EDTECH ---
Pt arrived to Pod from triage. Pt was changeover with cyber security administrator Rony present. Belonging secured in Pod Locker #[id number]. Lab and urine specimens obtained and sent for analysis. MAMTA sheth.
[2024-08-19 12:15] LABS: Amphetamine Screen Urine Not Detected (Not Detect); Barbiturates, Urine Not Detected (Not Detect); Benzodiazepines Screen Urine Not Detected (Not Detect); Buprenorphine Scr Not Detected (Not Detect); Cannabinoid Screen Urine POSITIVE (Not Detect); Cocaine Screen Urine POSITIVE (Not Detect); Fentanyl, urine POSITIVE (Not Detect); Methadone Screen, Urine Positive (Not Detect); Opiate Screen Urine Not Detected (Not Detect); Oxycodone Screen Urine Not Detected (Not Detect); Phencyclidine Screen Urine Not Detected (Not Detect)
--- NOTE | 2024-08-19 12:49 | ED_ITS ---
HPI - Psych General Chief Complaint: Psychiatric Symptoms Stated Complaint: SI crisis Time Seen by Provider: 08/19/24 11:52 Source: patient Mode of arrival: ambulatory Limitations: no limitations History of Present Illness ED Provider: Fallon Portillo NP HPI Narrative: Patient is a 34-year-old male who presents emergency department for evaluation. Admits that he has been feeling increasingly anxious and depressed since his most recent visit to this hospital, does not recall the exact date. He states he has not had any recent medication dosage changes. He endorses suicidal ideations with a plan to jump in front of a truck, use a gun, or potentially overdose. He admits to using recreational opiates in addition to methadone. It is unclear when he last received his methadone. Denies alcohol usage. Denies auditory or visual hallucinations. Related Data Home Medications ?Medication ?Instructions ?Recorded ?Confirmed clonazepam 0.5 mg tablet 0.5 mg PO TID 08/19/24 08/19/24 duloxetine 60 mg capsule,delayed 60 mg PO DAILY 08/19/24 08/19/24 release sprinkle gabapentin 600 mg tablet 600 mg PO TID 08/19/24 08/19/24 methadone 10 mg/mL oral 205 mg PO DAILY 08/19/24 08/19/24 concentrate (Methadone Intensol) pantoprazole 20 mg tablet,delayed 20 mg PO DAILY 08/19/24 08/19/24 release quetiapine 100 mg tablet 100 mg PO BID PRN Anxiety 08/19/24 08/19/24 Previous Rx's ?Medication ?Instructions ?Recorded budesonide-formoterol HFA 80 2 puff inhalation Q4H PRN Wheezing 01/28/24 mcg-4.5 mcg/actuation aerosol #1 inhaler inhaler (Symbicort) chlorpromazine 25 mg tablet 50 mg (2 x 25 mg) PO TID PRN 01/28/24 severe anxiety, grounding support #60 tabs lisdexamfetamine 40 mg capsule 40 mg PO DAILY #30 caps 01/28/24 (Vyvanse) quetiapine 400 mg tablet 400 mg PO BEDTIME #30 tabs 01/28/24 Allergies Allergy/AdvReac Type Severity Reaction Status Date / Time codeine Allergy RESTLESS Verified 08/19/24 10:48 LEG trazodone Allergy Hives Verified 08/19/24 10:48 Review of Systems 2 Review of Systems: Yes all other systems are reviewed and are negative [facility] Past Medical History Attestation statement: The following information was validated with the patient. Source: old records reviewed Medical History MDD (major depressive disorder), recurrent, severe, with psychosis Polysubstance abuse Chronic schizophrenia Depression with suicidal ideation Bipolar disorder Social History Social History Household Members: None Housing: Apartment Housing Other:: [facility]/c from correctional [facility] 1 week prior Do you presently have visiting nurse or other home services: No Unable to assess alcohol history related to: Unknown Alcohol intake: current Alcohol intake frequency: does not drink Patient Tobacco Use Status: Never used Tobacco Tobacco use type: Cigarette Cigarette Packs Per Day: 1.5 Cigarettes Per Day: 30.0 Years Smoked: unknown Smoked in Last 30 Days: No e-Cigarette/Vaping Use: Currently Using Second Hand Smoke Exposure: Yes Use of substances other than those prescribed or required for medical reasons: Yes Substance Use Type: Opiates Advance Directives: No Advance Directives Information Provided: No Do you have a plan to hurt others: No Plan service: No Sexual orientation: Straight/Heterosexual Physical Exam 2 Vital Signs: Vital Signs: Last Vital Signs Temp 99.0 F 08/20/24 10:15 Pulse 69 08/20/24 10:15 Resp 12 08/20/24 10:15 BP 113/70 08/20/24 10:15 Pulse Ox 97 08/20/24 10:15 O2 Del Method Room Air 08/20/24 10:15 BMI result Body Mass Index 23.5 Appearance: Alert.?Oriented to person, place and time. No acute distress.?Normal affect. Eyes: Pupils equal, round and reactive to light.? ENT: Pharynx normal.?? Neck: Normal inspection.? Neck supple.?? CVS: Heart sounds normal. Normal heart rate and rhythm.? Pulses normal.?? Respiratory: No respiratory distress.? Lung sounds clear to auscultation bilaterally?? Abdomen: Soft and non-tender. Normoactive bowel sounds. Skin: Skin warm and dry.? Normal skin color.? Extremities: No lower extremity edema.? Neuro: Moves all extremities spontaneously. Sensation intact bilaterally. CN II- XII intact. No focal neuro deficits. Ambulates with normal steady gait. Course Course Course Narrative: observation continued 08/20/24 1142am no acute events overnight IPBS VS stable dual dx bed search. continue to monitor Medications Administered Generic Name Dose Route Start Last Admin Trade Name Freq PRN Reason Stop Dose Admin Clonazepam 0.5 mg 08/19/24 21:00 08/20/24 08:35 Clonazepam 0.5 Mg Tablet PO 0.5 mg TID RUSSELL Administration Duloxetine HCl 60 mg 08/20/24 09:00 08/20/24 08:35 Duloxetine Hcl 60 Mg Capsule. PO 60 mg DAILY RUSSELL Administration Fluticasone/Vilanterol 1 puff 08/20/24 08:00 08/20/24 10:30 Fluticasone/Vilanterol Blst.W.Dev INHALE 1 puff RDAILY RUSSELL Administration Gabapentin 600 mg 08/19/24 21:00 08/20/24 08:35 Gabapentin 600 Mg Tablet PO 600 mg TID RUSSELL Administration Methadone HCl 205 mg 08/20/24 09:00 08/20/24 08:34 Methadone Hcl 20 Mg/2 Ml Oral.Conc PO 205 mg DAILY RUSSELL Administration Pantoprazole Sodium 20 mg 08/20/24 09:00 08/20/24 08:40 Pantoprazole Sodium 20 Mg Tablet. PO 20 mg DAILY RUSSELL Administration Quetiapine Fumarate 400 mg 08/19/24 21:00 08/19/24 20:38 Quetiapine Fumarate 400 Mg Tablet PO 400 mg BEDTIME RUSSELL Administration Discontinued Medications Generic Name Dose Route Start Last Admin Trade Name Freq PRN Reason Stop Dose Admin Nicotine 21 mg 08/20/24 10:31 08/20/24 11:06 Nicotine 21 Mg Patch.Td24 TRANSDERMA 08/20/24 10:32 21 mg ONCE ONE Administration Medical Decision Making Medical Decision Making [facility] Narrative: Patient is a 34 old male with past medical history of major depressive disorder, schizophrenic, bipolar disorder, polysubstance use disorder presenting to emergency department reports of increasing depression and anxiety with suicidal ideations and a plan. He is somewhat drowsy at the time of my evaluation but answering questions appropriately. He admits to recreational drug use, toxicology is positive for methadone, fentanyl, cocaine as well as marijuana. Reviewed serum labs obtained prior to my assumption of care CBC is without leukocytosis, has a mild normocytic anemia not meeting transfusion criteria. No electrolyte derangement. No BHARATHI. Chronic stable elevated AST/ALT. Urinalysis without evidence of infection. He offers no physical complaints in his physical examination is benign. He will be placed in physician observation as per narrative below for care team evaluation to ensue and safe disposition planning. Differential Diagnosis Differential Diagnoses: The differential diagnosis associated with the presentation includes (See narrative above and below for further detail) Admission/Observation Consideration of admission/observation: Escalation of care including admission/observation considered Patient is being observed in the Emergency Department for depression and suicidal ideations. Observation time was started at 13:43 on 08/19/2024.?The patient is currently stable and non-toxic appearing. Observation is being initiated in the Emergency Department to allow time to help differentiate if the patient's depression and suicidal ideations is due to Substance Induced Mood Disorder and Anxiety versus Major Depressive Disorder, Bipolar Racheal, Bipolar Depression, and Schizophrenia. The patient will receive frequent psychiatric assessments from the provider as well as from nursing staff. The patient will also be monitored for the need of PRN agitation medications such as Haldol, Ativan, and Benadryl. Consult Healthcare Provider Management of the patient was discussed with: Behavioral Health Provider (CARE team) Lab Data MDM Lab Attestation statement: I reviewed the patient's lab results. (See narrative above) 08/19/24 11:37 08/19/24 11:37 Labs: Lab Results 08/19/24 08/19/24 Range/Units 11:37 11:50 WBC 4.9 (4.8-10.8) X10*3/uL RBC 4.42 L (4.60-5.80) X10*6/uL Hgb 13.2 L (14.0-18.0) g/dl Hct 39.2 L (42.0-52.0) % MCV 88.7 (80.0-98.0) fL MCH 29.9 (27.0-33.0) pg MCHC 33.7 (31.0-36.0) g/dl RDW 12.5 (11.0-16.0) % Plt Count 258 (160-400) X10*3/uL MPV 9.3 L (9.4-12.4) fL Immature Gran % (Auto) 0.2 (0.0-0.4) % Neut % (Auto) 65.6 (45-73) % Lymph % (Auto) 21.6 (20-40) % Estill % (Auto) 11.2 H (2-11) % Eos % (Auto) 0.8 (0-4) % Baso % (Auto) 0.6 (0-2) % Lymph # (Auto) 1.1 L (1.2-4.9) X10*3/uL Estill # (Auto) 0.6 (0.1-1.2) X10*3/uL Eos # (Auto) 0.0 (0.0-0.4) X10*3/uL Baso # (Auto) 0.0 (0.0-0.2) X10*3/uL Abs Immat Gran (auto) 0.01 (0.00-0.03) X10*3/uL Absolute Neuts (auto) 3.2 (2.0-8.3) x10*3/uL Absolute Nucleated RBC 0.000 (0.0-0.012) X10*3/uL Nucleated RBC % (auto) 0.0 (0.0-0.2) /100WBC Sodium 139 (135-145) mmol/L Potassium 3.6 (3.3-5.1) mmol/L Chloride 108 (96-108) mmol/L Carbon Dioxide 20 L (22-29) mmol/L Anion Gap 15 (12-20) BUN 5 L (9-16) mg/dL Creatinine 0.84 (0.5-1.4) mg/dL Estim Creat Clear Calc 160.1 Estimated GFR > 60 Random Glucose 161 H (60-115) mg/dL Calcium 9.8 D (8.4-10.2) mg/dL Total Bilirubin 0.3 (0.0-1.0) mg/dL AST 49 H (5-37) U/L ALT 192 H (0-40) U/L Alkaline Phosphatase 87 (39-117) U/L Total Protein 7.8 (6.5-8.0) g/dL Albumin 4.3 (3.5-5.0) g/dL Urine Color Yellow Urine Appearance Clear Urine pH 6.0 (5.0-9.0) Ur Specific Hartman <= 1.005 (1.005-1.025) Urine Protein Negative (Neg-Trace) mg/dL Urine Glucose (UA) Negative (Negative) mg/dL Urine Ketones Negative (Negative) mg/dL Urine Blood Negative (Negative) Urine Nitrite Negative (Negative) Ur Leukocyte Esterase Negative (Negative) Urine Opiates Screen Not Detected (Not Detect) Ur Buprenorphine Scrn Not Detected (Not Detect) ng/mL Ur Oxycodone Screen Not Detected (Not Detect) ng/mL Urine Methadone Screen Positive H (Not Detect) ng/mL Urine Fentanyl Screen POSITIVE H (Not Detect) Ur Barbiturates Screen Not Detected (Not Detect) Ur Phencyclidine Scrn Not Detected (Not Detect) Ur Amphetamines Screen Not Detected (Not Detect) U Benzodiazepines Scrn Not Detected (Not Detect) Urine Cocaine Screen POSITIVE H (Not Detect) U Marijuana (THC) Screen POSITIVE H (Not Detect) Ethyl Alcohol < 10 mg/dL External Record Review External record reviewed: Outpatient record Chronic Conditions Patient?s care impacted by: Other (See narrative above) Discharge Plan Discharge Clinical Impression: Suicidal ideation Patient Disposition: Still a Patient Prescriptions: No Action quetiapine 100 mg tablet 100 mg PO BID PRN (Reason: Anxiety) gabapentin 600 mg Tablet 600 mg PO TID clonazepam 0.5 mg Tablet 0.5 mg PO TID pantoprazole 20 mg Tablet,Delayed Release (Dr/Ec) 20 mg PO DAILY duloxetine 60 mg Capsule, Delayed Rel Sprinkle 60 mg PO DAILY methadone [Methadone Intensol] 10 mg/mL Concentrate 205 mg PO DAILY chlorpromazine 25 mg Tablet 50 mg PO TID PRN (Reason: severe anxiety, grounding support) Qty: 60 0RF quetiapine 400 mg Tablet 400 mg PO BEDTIME Qty: 30 0RF budesonide-formoterol [Symbicort] 80-4.5 mcg/actuation Hfa Aerosol Inhaler 2 puff INHALATION Q4H PRN (Reason: Wheezing) Qty: 1 0RF lisdexamfetamine [Vyvanse] 40 mg capsule 40 mg PO DAILY Qty: 30 0RF Rx Instructions: Partial Fill upon patient request. Interventions: Evans-Suicide Risk Severity Scale Last Done: 08/19/24 11:20 Print Language: Nicaraguan
--- NOTE | 2024-08-19 12:55 | HE.PHANOTE ---
RE: METHADONE DOSING Last dose of methadone 205 mg was given on 08/19/24 @1012 per [facility] at [facility] [phone].
--- NOTE | 2024-08-19 14:07 | MHC.CARE ---
Pt will be a next day follow up. He did not appear to be able to participate in the assessment.
--- NOTE | 2024-08-19 15:36 | PC.NURSE ---
Pt continues to frequently ask for food, limits have been set with patient, pt then began asking other patients to get food for him
--- NOTE | 2024-08-19 19:32 | PC.NURSE ---
patient appears to remain at rest at present respirations ae
--- NOTE | 2024-08-19 19:38 | PC.NURSE ---
continuation of other note- even and unlabored patient appears in no distress.
--- NOTE | 2024-08-19 20:06 | ECG_ITS ---
Test Reason : MED CLEARANCE Blood Pressure : */* mmHG Vent. Rate : 69 BPM Atrial Rate : 69 BPM P-R Int : 152 ms QRS Dur : 92 ms QT Int : 412 ms P-R-T Axes : * 134 150 degrees QTcB Int : 441 ms Suspect limb lead reversal, interpretation assumes no reversal Normal sinus rhythm Lateral infarct , age undetermined Abnormal ECG When compared with ECG of 22-Jan-2024 07:38, QRS axis Shifted right Lateral infarct is now Present T wave inversion now evident in Lateral leads Referred By: Petar Rodrigues Electronically Signed By: Ritchie Cifuentes
--- NOTE | 2024-08-19 20:31 | MHC.EDTECH ---
PT REFUSING EKG AT THIS TIME. RN AWARE.
[2024-08-19 20:36] VITALS: BP 112/69; PULSE 72; RESP 16; TEMP 36.7; O2SAT 100
[2024-08-19] MEDS: Gabapentin 600 MG TABLET PO (20:38)
[2024-08-19] MEDS: QUEtiapine Fumarate 400 MG TABLET PO (20:38)
[2024-08-19] MEDS: clonazePAM 0.5 MG TABLET PO (20:38)
--- NOTE | 2024-08-19 20:42 | PC.NURSE ---
client declined ekg
[2024-08-20] MEDS: methADONE HCl 20 MG/2 ML ORAL.CONC 205 MG PO (08:34)
[2024-08-20] MEDS: clonazePAM 0.5 MG TABLET PO ×3 (08:35→20:47)
[2024-08-20] MEDS: Gabapentin 600 MG TABLET PO ×3 (08:35→20:47)
[2024-08-20] MEDS: DULoxetine HCl 60 MG CAPSULE.DR PO (08:35)
[2024-08-20] MEDS: Pantoprazole Sodium 20 MG TABLET.DR PO (08:40)
--- NOTE | 2024-08-20 09:48 | PC.NURSE ---
Pt cont to refuse EKG at this time
--- NOTE | 2024-08-20 10:06 | PC.NURSE ---
Care Team at bedside to evaluate pt; pt cooperative at this time
[2024-08-20 10:15] VITALS: BP 113/70; PULSE 69; RESP 12; TEMP 37.2; O2SAT 97
[2024-08-20] MEDS: Fluticasone/Vilanterol 100/25 BLST.W.DEV 1 PUFF INHALE (10:30)
[2024-08-20] MEDS: Nicotine 21 MG PATCH.TD24 TRANSDERMA (11:06)
--- NOTE | 2024-08-20 11:40 | ECG_ITS ---
Test Reason : MEDICAL CLEARANCE Blood Pressure : */* mmHG Vent. Rate : 73 BPM Atrial Rate : 73 BPM P-R Int : 158 ms QRS Dur : 92 ms QT Int : 400 ms P-R-T Axes : 25 50 40 degrees QTcB Int : 440 ms Normal sinus rhythm Normal ECG When compared with ECG of 20-Aug-2024 10:33, QRS axis Shifted left Referred By: Chandana Ortega Electronically Signed By: LUIS E PLEITEZ MD
[2024-08-20 17:06] VITALS: BP 122/65; PULSE 69; RESP 16; TEMP 37; O2SAT 100
--- NOTE | 2024-08-20 19:08 | PC.NURSE ---
patient appears to remain at rest presently asking for snacks frequently, patient has reported recent gum discomfort so changed diet to chopped, appears in no distress presetly
[2024-08-20] MEDS: QUEtiapine Fumarate 400 MG TABLET PO (20:47)
--- NOTE | 2024-08-21 07:06 | PC.NURSE ---
Assumed care of patient at 0645, patient appears to be in no apparent distress at this time, sleeping, respirations even and unlabored, no apparent distress. Continue plan of care for dual dx bedsearch
[2024-08-21 07:54] VITALS: BP 118/72; PULSE 101; RESP 20; TEMP 36.4; O2SAT 100
[2024-08-21] MEDS: Gabapentin 600 MG TABLET PO ×3 (08:09→20:15)
[2024-08-21] MEDS: DULoxetine HCl 60 MG CAPSULE.DR PO (08:09)
[2024-08-21] MEDS: clonazePAM 0.5 MG TABLET PO ×3 (08:09→20:15)
[2024-08-21] MEDS: Pantoprazole Sodium 20 MG TABLET.DR PO (08:10)
[2024-08-21] MEDS: methADONE HCl 20 MG/2 ML ORAL.CONC 205 MG PO (08:10)
[2024-08-21] MEDS: Fluticasone/Vilanterol 100/25 BLST.W.DEV 1 PUFF INHALE (08:16)
--- NOTE | 2024-08-21 12:10 | PHA.MEDREC ---
Addendum entered by Janee Colon RPh 08/21/24 12:42: REVIEWED BY PHARMACIST Original Note: Pharmacy Consult ? Medication Reconciliation Pharmacy has completed the medication reconciliation. Nurse called [facility] on Thursday to obtain med list. Reviewed.
[2024-08-21 17:57] VITALS: BP 111/64; PULSE 68; RESP 14; TEMP 36.5; O2SAT 94
--- NOTE | 2024-08-21 19:05 | PC.NURSE ---
Patient has had an uneventful day thus far, sleeping frequently and also frequently asking for snacks. Offering no complaints at this time
[2024-08-21] MEDS: QUEtiapine Fumarate 400 MG TABLET PO (20:15)
--- NOTE | 2024-08-21 22:43 | PC.NURSE ---
assumed care of this patient at this time. patient presents to nurses station for sandwich and drinks. Patient calm and cooperative.
[2024-08-22 06:07] VITALS: BP 101/69; PULSE 53; RESP 17; TEMP 36.9; O2SAT 95
[2024-08-22] MEDS: Pantoprazole Sodium 20 MG TABLET.DR PO (08:54)
[2024-08-22] MEDS: clonazePAM 0.5 MG TABLET PO ×3 (08:54→21:33)
[2024-08-22] MEDS: Gabapentin 600 MG TABLET PO ×3 (08:54→21:33)
[2024-08-22] MEDS: DULoxetine HCl 60 MG CAPSULE.DR PO (08:54)
[2024-08-22] MEDS: Fluticasone/Vilanterol 100/25 BLST.W.DEV 1 PUFF INHALE (08:54)
[2024-08-22] MEDS: methADONE HCl 20 MG/2 ML ORAL.CONC 205 MG PO (08:56)
--- NOTE | 2024-08-22 12:23 | PC.NURSE ---
report given to Mercedes padilla
--- NOTE | 2024-08-22 12:32 | PC.NURSE ---
called pharmacy to try to figure out the dose for Adderall because the hospital does not carries Vyanse, pt typically takes 40 mg daily of the Vyanse
[2024-08-22 13:30] VITALS: BP 114/67; PULSE 98; RESP 14; TEMP 36.7; O2SAT 97; BMI 23.8
[2024-08-22] MEDS: Folic Acid 1 MG TABLET PO (14:38)
[2024-08-22] MEDS: Dextroamphetamine/Amphetamine XR 5 MG CAP.ER.24H 15 MG PO (14:38)
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
[2024-08-22 19:51] VITALS: BP 137/88; PULSE 70; RESP 18; TEMP 36.5; O2SAT 97
[2024-08-22] MEDS: QUEtiapine Fumarate 400 MG TABLET PO (21:33)
[2024-08-22] MEDS: hydrOXYzine HCL 25 MG TABLET PO (21:33)
[2024-08-23] MEDS: methADONE HCl 20 MG/2 ML ORAL.CONC 205 MG PO (07:47)
[2024-08-23 08:06] VITALS: BP 95/56; PULSE 99; RESP 18; TEMP 37.2; O2SAT 98
[2024-08-23 08:40] LABS: Estimated Average Glucose 94 mg/dL; Hemoglobin A1C 112.9797 umol/L; Hemoglobin A1c % 4.9 % (<6.0); Total Hemoglobin (HGBA1C) 3808.7762 umol/L
[2024-08-23] MEDS: clonazePAM 0.5 MG TABLET PO (08:47)
[2024-08-23] MEDS: Thiamine HCL 100 MG TABLET PO (08:47)
[2024-08-23] MEDS: DULoxetine HCl 60 MG CAPSULE.DR PO (08:47)
[2024-08-23] MEDS: Gabapentin 600 MG TABLET PO ×3 (08:47→22:04)
[2024-08-23] MEDS: Folic Acid 1 MG TABLET PO (08:47)
[2024-08-23] MEDS: Pantoprazole Sodium 20 MG TABLET.DR PO (08:54)
[2024-08-23 09:11] LABS: Alanine Aminotransferase 73 U/L (0-40); Aspartate Amino Transferase 36 U/L (5-37); Bilirubin Direct 0.2 mg/dL (0.0-0.5); Bilirubin Total 0.3 mg/dL (0.0-1.0); Cholesterol 170 mg/dL (<200); HDL Cholesterol 30 mg/dL (>40); Total Protein 8.1 g/dL (6.5-8.0); Triglycerides 594 mg/dL (<150)
[2024-08-23] MEDS: Fluticasone/Vilanterol 100/25 BLST.W.DEV 1 PUFF INHALE (09:41)
[2024-08-23 11:08] LABS: Alkaline Phosphatase 85 U/L (39-117)
[2024-08-23] MEDS: Amphetamine Mixed Salts 10 MG TABLET 15 MG PO (12:09)
[2024-08-23] MEDS: clonazePAM 1 MG TABLET PO ×2 (12:15→22:04)
[2024-08-23] MEDS: OLANZapine 5 MG TABLET PO (12:15)
[2024-08-23] MEDS: chlorproMAZINE HCl 25 MG TABLET 50 MG PO (12:15)
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
[2024-08-23 21:27] VITALS: BP 109/56; PULSE 76; RESP 16; TEMP 37.1; O2SAT 93
[2024-08-23] MEDS: QUEtiapine Fumarate 400 MG TABLET PO (22:04)
[2024-08-23] MEDS: hydrOXYzine HCL 25 MG TABLET PO (22:04)
[2024-08-23] MEDS: risperiDONE 0.5 MG TABLET PO (22:04)
[2024-08-24 07:38] VITALS: BP 123/72; PULSE 69; RESP 18; TEMP 36.1; O2SAT 98
[2024-08-24] MEDS: methADONE HCl 20 MG/2 ML ORAL.CONC 205 MG PO (07:42)
[2024-08-24] MEDS: risperiDONE 0.5 MG TABLET PO ×2 (08:10→22:07)
[2024-08-24] MEDS: DULoxetine HCl 60 MG CAPSULE.DR PO (08:10)
[2024-08-24] MEDS: clonazePAM 1 MG TABLET PO ×3 (08:10→22:07)
[2024-08-24] MEDS: Pantoprazole Sodium 20 MG TABLET.DR PO (08:10)
[2024-08-24] MEDS: Gabapentin 600 MG TABLET PO ×3 (08:10→22:07)
[2024-08-24] MEDS: Fluticasone/Vilanterol 100/25 BLST.W.DEV 1 PUFF INHALE (08:39)
[2024-08-24] MEDS: Amphetamine Mixed Salts 10 MG TABLET 15 MG PO (08:39)
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
[2024-08-24] MEDS: chlorproMAZINE HCl 25 MG TABLET 50 MG PO (12:18)
[2024-08-24] MEDS: hydrOXYzine HCL 25 MG TABLET PO ×2 (12:18→22:07)
[2024-08-24 20:10] VITALS: RESP 18
[2024-08-24] MEDS: QUEtiapine Fumarate 400 MG TABLET PO (22:07)
[2024-08-25 07:00] VITALS: BMI 24.2
[2024-08-25 07:36] VITALS: BP 103/63; PULSE 72; RESP 16; TEMP 36.5; O2SAT 96
[2024-08-25] MEDS: methADONE HCl 20 MG/2 ML ORAL.CONC 205 MG PO (08:03)
[2024-08-25] MEDS: Pantoprazole Sodium 20 MG TABLET.DR PO (08:37)
[2024-08-25] MEDS: Gabapentin 600 MG TABLET PO ×3 (08:37→20:26)
[2024-08-25] MEDS: Amphetamine Mixed Salts 10 MG TABLET 15 MG PO (08:37)
[2024-08-25] MEDS: DULoxetine HCl 60 MG CAPSULE.DR PO (08:38)
[2024-08-25] MEDS: risperiDONE 0.5 MG TABLET PO ×2 (08:38→20:27)
[2024-08-25] MEDS: clonazePAM 1 MG TABLET PO ×3 (08:38→20:26)
[2024-08-25] MEDS: Fluticasone/Vilanterol 100/25 BLST.W.DEV 1 PUFF INHALE (08:38)
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
[2024-08-25] MEDS: hydrOXYzine HCL 25 MG TABLET PO (15:44)
[2024-08-25] MEDS: QUEtiapine Fumarate 100 MG TABLET PO (15:44)
[2024-08-25] MEDS: chlorproMAZINE HCl 25 MG TABLET 50 MG PO (15:44)
[2024-08-25 20:00] VITALS: BP 109/56; PULSE 88; TEMP 36.9; O2SAT 96
[2024-08-25] MEDS: QUEtiapine Fumarate 400 MG TABLET PO (20:26)
[2024-08-26 07:55] VITALS: BP 118/71; PULSE 94; RESP 18; TEMP 37.3; O2SAT 97
[2024-08-26] MEDS: methADONE HCl 20 MG/2 ML ORAL.CONC 205 MG PO (08:02)
[2024-08-26] MEDS: Fluticasone/Vilanterol 100/25 BLST.W.DEV 1 PUFF INHALE (08:20)
[2024-08-26] MEDS: risperiDONE 0.5 MG TABLET PO (08:21)
[2024-08-26] MEDS: Pantoprazole Sodium 20 MG TABLET.DR PO (08:21)
[2024-08-26] MEDS: Gabapentin 600 MG TABLET PO (08:21)
[2024-08-26] MEDS: DULoxetine HCl 60 MG CAPSULE.DR PO (08:21)
[2024-08-26] MEDS: Amphetamine Mixed Salts 10 MG TABLET 15 MG PO (08:21)
[2024-08-26] MEDS: clonazePAM 1 MG TABLET PO (08:21)
[2024-08-26] MEDS: Naloxone HCl Nasal TAKE HOME 4 MG SPRAY 8 MG NOSTRILALT (08:31)
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
== END 2024-08-26 09:45 | disposition home or self-care (01) | DRG 751 ==
LOC: HO.ED 16:37 → HO.PM5 08-22 13:02 → HO.PADLT16 08-23 12:24
PROVIDERS: Admitting Provider Psychiatry & Neurology Psychiatry; Emergency Provider Emergency Medicine; Responsible Provider Registered Nurse; Visit Provider Psychiatry & Neurology Psychiatry
DX: F33.3 Major depressive disorder, recurrent, severe with psychotic symptoms (principal); R45.851 Suicidal ideations; F43.10 Post-traumatic stress disorder, unspecified; F11.20 Opioid dependence, uncomplicated; F19.10 Other psychoactive substance abuse, uncomplicated; Z79.899 Other long term (current) drug therapy
CPT/HCPCS: 36415; 80053; 80061; 80076; 80307; 81003; 83036; 84443; 85025; 93005; 99285; S9485

== ENCOUNTER → 2024-08-19 20:06 | Outpatient (BNV) | payer MEDICAID, SELFPAY | PROVIDERS: Emergency Provider Emergency Medicine; Visit Provider Internal Medicine Cardiovascular Disease | DX: R94.31 Abnormal electrocardiogram [ECG] [EKG] (principal) | CPT/HCPCS: 93010 ==

== ENCOUNTER → 2024-08-20 11:40 | Outpatient (BNV) | payer MEDICAID, SELFPAY | PROVIDERS: Emergency Provider Emergency Medicine; Visit Provider Internal Medicine Cardiovascular Disease | DX: Z13.0 Encounter for screening for diseases of the blood and blood-forming organs and certain disorders involving the immune mechanism (principal) | CPT/HCPCS: 93010 ==

== ENCOUNTER → 2024-08-22 12:53 | Outpatient (BNV) | payer OTHER, SELFPAY | PROVIDERS: Admitting Provider Psychiatry & Neurology Psychiatry; Emergency Provider Emergency Medicine; Responsible Provider Registered Nurse; Visit Provider Clinical Nurse Specialist Psychiatric/Mental Health, Adult | DX: F33.3 Major depressive disorder, recurrent, severe with psychotic symptoms (principal); R45.851 Suicidal ideations; F11.90 Opioid use, unspecified, uncomplicated; F43.11 Post-traumatic stress disorder, acute; F19.90 Other psychoactive substance use, unspecified, uncomplicated | CPT/HCPCS: 99231; 99232 ==